=== PATIENT | female | born 1950 | race Caucasian/White ===

== ENCOUNTER → 2016-08-17 | Day surgery (SDC) | payer BC, OTHER ==
[~2016-08-17] MED LIST: Apraclonidine 0.5% Ophth Soln 5 ML Bot EYEBOTH SCH; Phenylephrine 2.5% Ophth Soln 2 ML Bot EYEBOTH SCH
== END ==
LOC: JD.SDS 11:26
PROVIDERS: ATTEND Ophthalmology
DX: H26.493 Other secondary cataract, bilateral (principal); I10 Essential (primary) hypertension; Z88.2 Allergy status to sulfonamides; Z88.8 Allergy status to other drugs, medicaments and biological substances; Z90.710 Acquired absence of both cervix and uterus

== ENCOUNTER 2019-06-25 13:15 | Inpatient (IN) | payer OTHER, MEDICARE ==
[2019-08-06] MEDS ORDERED: Lidocaine 1%/Sod Bicarbonate in NS 8.4% 1 ML Syringe IDERM PRN (00:01)
[2019-08-06] MEDS ORDERED: Lactated Ringers 1,000 ML IV SCH (00:01)
[2019-08-06] MEDS ORDERED: Sodium Chloride 0.9% 10 ML Syringe FLUSH PRN (00:01)
[2019-08-06] MEDS ORDERED: oxyCODONE ER 10 MG TAB.ER PO SCH ×2 (06:00→10:30)
[2019-08-06] MEDS ORDERED: Ondansetron 4 MG/2 ML SDV IVPUSH PRN (06:47)
[2019-08-06] MEDS ORDERED: Sennosides 8.6 MG Tab PO PRN (06:47)
[2019-08-06] MEDS ORDERED: Bisacodyl 5 MG Tab PO PRN (06:47)
[2019-08-06] MEDS ORDERED: Morphine 2 MG/ML Syringe IVPUSH PRN (06:47)
[2019-08-06] MEDS ORDERED: Naloxone 0.4 MG/ML SDV IVPUSH PRN (06:47)
[2019-08-06] MEDS ORDERED: fentaNYL 100 MCG/2 ML SDV ONE (09:48)
[2019-08-06] MEDS ORDERED: Lidocaine 1% 4 ML ONE (09:49)
[2019-08-06] MEDS ORDERED: Propofol 200 MG/20 ML SDV ONE (09:49)
[2019-08-06] MEDS ORDERED: Midazolam 1 MG/ML 2 ML SDV ONE (09:50)
[2019-08-06] MEDS ORDERED: ceFAZolin 1 GM Vial ONE ×2 (09:51→10:21)
[2019-08-06] MEDS ORDERED: Morphine 8 MG, EPINEPHrine 0.3 MG, Cefuroxime 750 MG, Ketorolac 30 MG, Sodium Chloride ... ONE ×5 (10:00)
[2019-08-06] MEDS ORDERED: Acetaminophen 325 MG Tab PO SCH ×2 (10:00→10:30)
[2019-08-06] MEDS ORDERED: Pregabalin 25 MG Cap PO SCH ×2 (10:00→10:30)
[2019-08-06] MEDS ORDERED: Bupivacaine 0.25% 10 ML SDV ONE (10:22)
[2019-08-06] MEDS ORDERED: Iodine/Sodium Iodide 2% Tincture 30 ML Bottle ONE (10:22)
[2019-08-06] MEDS ORDERED: Vancomycin 1 GM SDV ONE (10:22)
--- NOTE | 2019-08-06 10:35 | PCM.PREANE ---
Preanesthetic Assessment - Anesthesia/Transfusion/Family Hx Anesthesia History: Prior Anesthesia Without Reaction Transfusion History: No Prior Transfusion(s) - Review of Systems General: No Symptoms Pulmonary: No Symptoms Cardiovascular: No Symptoms Gastrointestinal: No Symptoms Neurological: No Symptoms Other: Reports: None - Physical Assessment NPO Status Date: 08/05/19 NPO Status Time: 20:00 ASA Class: 2 Mental Status: Alert & Oriented x3 Airway Class: Mallampati = 4 (difficult airway) Dentition: Reports: Normal Dentition Thyro-Mental Finger Breadths: 3 Mouth Opening Finger Breadths: 3 ROM/Head Extension: Limited/Partial Lungs: Clear to Auscultation, Normal Respiratory Effort Cardiovascular: Regular Rate, Regular Rhythm - Lab Values: Laboratory Last Values MRSA (PCR) Positive H 07/20/19 11:43 - Allergies Allergies/Adverse Reactions: Allergies Allergy/AdvReac Type Severity Reaction Status Date / Time cefdinir Allergy Nausea and Verified 08/03/19 13:47 Vomiting methylprednisolone Allergy Diaphoresis Verified 08/03/19 13:47 Nbsutll-Den-Kxg Reductase Allergy Body Aches Verified 08/03/19 13:47 Inhibitor Sulfa (Sulfonamide Allergy Nausea and Verified 08/03/19 13:47 Antibiotics) Vomiting - Blood Blood Available: Yes Product(s) Available: PRBC - Anesthesia Plan Beta Yong: Propranolol Med Last Dose Date: 08/05/19 Med Last Dose Time: 23:00 - Acknowledgements Anesthesia Type Planned: General Anesthesia, Spinal Pt an Appropriate Candidate for the Planned Anesthesia: Yes Alternatives and Risks of Anesthesia Discussed w Pt/Guardian: Yes Pt/Guardian Understands and Agrees with Anesthesia Plan: Yes PreAnesthesia Questionnaire HEENT History: Reports: Allergic Rhinitis, Other (See Below) Other HEENT History: temporomadibular joint disorder Cardiovascular History: Reports: High Cholesterol, Hypertension Respiratory History: Reports: Sleep Apnea, Other (See Below) Other Respiratory History: acute URI, sleep apnea with no machine Gastrointestinal History: Reports: GERD Genitourinary History: Reports: Other (See Below) Other Genitourinary History: decreased GFR, kidney disease Musculoskeletal History: Reports: Other (See Below) Other Musculoskeletal History: arthopathy, aseptic necrosis of femur, costochondritis Neurological History: Reports: Headaches, Chronic, Other (See Below) Other Neuro History: cervical radiculopathy, intracranial vascular stenosis Psychiatric History: Reports: Depression Endocrine/Metabolic History: Reports: Vitamin D Deficiency Hematologic History: Reports: Anemia Dermatologic History: Reports: Other (See Below) Other Dermatologic History: rash, basal cell carcinoma - Past Surgical History Head Surgeries/Procedures: Reports: None HEENT Surgical History: Reports: Cataract Surgery Cardiovascular Surgical History: Reports: None Respiratory Surgical History: Reports: None GI Surgical History: Reports: None Female Surgical History: Reports: Hysterectomy Male Surgical History: Reports: None Endocrine Surgical History: Reports: None Musculoskeletal Surgical History: Reports: Hip Replacement Oncologic Surgical History: Reports: None - SUBSTANCE USE Smoking Status *Q: Former Smoker Recreational Drug Use History: No - HOME MEDS Home Medications: Home Meds Folic Acid 1 mg PO DAILY 11/14/13 [History] Omeprazole 20 mg PO DAILY 11/14/13 [History] Propranolol [Inderal LA] 120 mg PO DAILY 11/14/13 [History] Ezetimibe [Zetia] 10 mg PO DAILY 08/16/16 [History] Fexofenadine HCl 180 mg PO DAILY 08/16/16 [History] Losartan [Cozaar] 50 mg PO DAILY 08/16/16 [History] Acetaminophen [Tylenol Extra Strength] 500 mg PO Q4H PRN 08/03/19 [History] Aspirin 81 mg PO DAILY 08/03/19 [History] DULoxetine [Cymbalta] 60 mg PO DAILY 08/03/19 [History] Levocetirizine Dihydrochloride [Xyzal] 5 mg PO DAILY 08/03/19 [History] amLODIPine Besylate [Norvasc] 5 mg PO DAILY 08/03/19 [History] gemfibroziL [Lopid] 600 mg PO DAILY 08/03/19 [History] - CURRENT (IN HOUSE) MEDS Current Meds: Current Medications Acetaminophen (Tylenol) 975 mg PO ONETIME [facility] Stop: 08/06/19 16:00 Aspirin (Ecotrin) 325 mg PO BID [facility] Bisacodyl (Dulcolax) 5 mg PO DAILY PRN PRN Reason: Constipation Docusate Sodium (Colace) 100 mg PO BID [facility] Famotidine (Pepcid) 20 mg PO Q12H [facility] Lactated Ringer's (Ringers, Lactated) 1,000 mls @ 125 mls/hr IV ASDIRECTED [facility] Stop: 08/06/19 23:00 Cefazolin Sodium/Dextrose 2 gm (/ Premix) 50 mls @ 100 mls/hr IV Q8H [facility] Stop: 08/06/19 23:29 Lidocaine/Sodium Bicarbonate (Buffered Lidocaine 1% In Ns 8.4%) 0.25 ml IDERM ONETIME PRN PRN Reason: Prior to IV Start Stop: 08/06/19 18:00 Morphine Sulfate (Morphine) 2 mg IVPUSH Q2H PRN PRN Reason: Breakthrough Pain Naloxone HCl (Narcan) 0.1 mg IVPUSH Q5M PRN PRN Reason: Oversedation Ondansetron HCl (Zofran) 4 mg IVPUSH Q6H PRN PRN Reason: Nausea/Vomiting Oxycodone HCl (Oxycontin) 10 mg PO ONETIME [facility] Stop: 08/06/19 16:00 Oxycodone/Acetaminophen (Percocet 325-5 Mg) 1 - 2 tab PO Q4H PRN PRN Reason: Pain Pregabalin (Lyrica) 50 mg PO ONETIME [facility] Stop: 08/06/19 16:00 Senna (Senna) 8.6 mg PO BID PRN PRN Reason: Constipation Sodium Chloride (Saline Flush) 10 ml FLUSH ASDIRECTED PRN PRN Reason: Keep Vein Open Stop: 08/06/19 18:00 Vancomycin HCl (Pharmacy To Dose - Vancomycin) 1 dose .XX ASDIRECTED [facility] Discontinued Medications Cefazolin Sodium (Ancef) Confirm Administered Dose 2 gm .ROUTE .STK-MED ONE Stop: 08/06/19 09:52 Morphine Sulfate 8 mg/Epinephrine HCl 0.3 mg/Cefuroxime Sodium 750 mg/Ketorolac Tromethamine 30 mg/Sodium Chloride 7.9 ml 0 mg .XX ONETIME ONE Stop: 08/06/19 10:01 Fentanyl (Sublimaze) Confirm Administered Dose 100 mcg .ROUTE .STK-MED ONE Stop: 08/06/19 09:49 Lidocaine HCl (Xylocaine-Mpf 1%) Confirm Administered Dose 4 mls @ as directed .ROUTE .STK-MED ONE Stop: 08/06/19 09:50 Midazolam HCl (Versed 1 Mg/Ml) Confirm Administered Dose 2 mg .ROUTE .STK-MED ONE Stop: 08/06/19 09:51 Propofol (Diprivan 20 Ml) Confirm Administered Dose 200 mg .ROUTE .STK-MED ONE Stop: 08/06/19 09:50
[2019-08-06] MEDS ORDERED: Vancomycin 1 GM, Vancomycin 500 MG in Sodium Chloride 0.9% 500 ML IV ONE (11:00)
[2019-08-06] MEDS ORDERED: cloNIDine 1,000 MCG/10 ML SDV ONE (11:31)
--- NOTE | 2019-08-06 12:15 | PCM.CONS ---
H&P History of Present Illness - General Date of Service: 08/06/19 Admit Problem/Dx: Admission Diagnosis/Problem Admission Diagnosis/Problem Osteoarthritis of hip Source of Information: Patient, Provider, RN, RN Notes Reviewed History Limitations: Reports: No Limitations - History of Present Illness Initial Comments - Free Text/Narative: Zamzam Bryant is a 69 yo female patient of Dr. Garza who is post-operative day 0 of left RAGHAVENDRA. Hospital medicine was consulted for post-operative medical care of the following listed medical conditions. At this time she is resting comfortably in bed. Pain is controlled. She denies any chest pain, shortness of breath, palpitations, nausea, or vomiting. She carries a history of: MRSA, RA, Gout, Insomnia, GERD, Depression, Osteoporosis, TMJ, HTN, Anemia, Headache, Intracranial vascular stenosis, Vitamin D deficiency, Rash, HLD, Untreated Sleep Apnea, CKD, Cervical radiculopathy, Basal cell carcinoma. She is a former smoker. She is a full code. Her primary care provider is Dr. Dias. Left Hip Pain Score (Numeric/FACES): 0 - Related Data Allergies/Adverse Reactions: Allergies Allergy/AdvReac Type Severity Reaction Status Date / Time cefdinir Allergy Nausea and Verified 08/03/19 13:47 Vomiting methylprednisolone Allergy Diaphoresis Verified 08/03/19 13:47 Bkrjtvr-Fhr-Glr Reductase Allergy Body Aches Verified 08/03/19 13:47 Inhibitor Sulfa (Sulfonamide Allergy Nausea and Verified 08/03/19 13:47 Antibiotics) Vomiting Home Medications: Home Meds Folic Acid 1 mg PO DAILY 11/14/13 [History] Omeprazole 20 mg PO DAILY 11/14/13 [History] Propranolol [Inderal LA] 120 mg PO DAILY 11/14/13 [History] Ezetimibe [Zetia] 10 mg PO DAILY 08/16/16 [History] Fexofenadine HCl 180 mg PO DAILY 08/16/16 [History] Losartan [Cozaar] 50 mg PO DAILY 08/16/16 [History] Acetaminophen [Tylenol Extra Strength] 500 mg PO Q4H PRN 08/03/19 [History] Aspirin 81 mg PO DAILY 08/03/19 [History] DULoxetine [Cymbalta] 60 mg PO DAILY 08/03/19 [History] Levocetirizine Dihydrochloride [Xyzal] 5 mg PO DAILY 08/03/19 [History] amLODIPine Besylate [Norvasc] 5 mg PO DAILY 08/03/19 [History] gemfibroziL [Lopid] 600 mg PO DAILY 08/03/19 [History] Past Medical History HEENT History: Reports: Allergic Rhinitis, Other (See Below) Other HEENT History: temporomadibular joint disorder Cardiovascular History: Reports: High Cholesterol, Hypertension Respiratory History: Reports: Sleep Apnea, Other (See Below) Other Respiratory History: acute URI, sleep apnea with no machine Gastrointestinal History: Reports: GERD Genitourinary History: Reports: Other (See Below) Other Genitourinary History: decreased GFR, kidney disease SECURITY MANAGEMENT SPECIALIST History: Reports: None Musculoskeletal History: Reports: Other (See Below) Other Musculoskeletal History: arthopathy, aseptic necrosis of femur, costochondritis Neurological History: Reports: Headaches, Chronic, Other (See Below) Other Neuro History: cervical radiculopathy, intracranial vascular stenosis Psychiatric History: Reports: Depression Endocrine/Metabolic History: Reports: Vitamin D Deficiency Hematologic History: Reports: Anemia Immunologic History: Reports: None Oncologic (Cancer) History: Reports: None Dermatologic History: Reports: Other (See Below) Other Dermatologic History: rash, basal cell carcinoma - Infectious Disease History Infectious Disease History: Reports: MRSA Other Infectious Disease History: MRSA + nares (06/12/19) - Past Surgical History Head Surgeries/Procedures: Reports: None HEENT Surgical History: Reports: Cataract Surgery Cardiovascular Surgical History: Reports: None Respiratory Surgical History: Reports: None GI Surgical History: Reports: None Female Surgical History: Reports: Hysterectomy Male Surgical History: Reports: None Endocrine Surgical History: Reports: None Musculoskeletal Surgical History: Reports: Hip Replacement Oncologic Surgical History: Reports: None Social & Family History - Tobacco Use Smoking Status *Q: Former Smoker Used Tobacco, but Quit: Yes Month/Year Tobacco Last Used: 1998 - Caffeine Use Caffeine Use: Reports: Soda - Recreational Drug Use Recreational Drug Use: No H&P Review of Systems - Review of Systems: Review Of Systems: See Below General: Reports: No Symptoms. Denies: Fever, Chills HEENT: Reports: No Symptoms. Denies: Headaches, Sore Throat Pulmonary: Reports: No Symptoms. Denies: Shortness of Breath, Wheezing, Pleuritic Chest Pain, Cough, Sputum Cardiovascular: Reports: No Symptoms. Denies: Chest Pain, Palpitations, Dyspnea on Exertion Gastrointestinal: Reports: No Symptoms. Denies: Abdominal Pain, Constipation, Nausea, Vomiting Genitourinary: Reports: No Symptoms. Denies: Pain Musculoskeletal: Reports: Leg Pain Skin: Reports: No Symptoms. Denies: Cyanosis Psychiatric: Reports: No Symptoms. Denies: Confusion Neurological: Reports: Difficulty Walking, Gait Disturbance Hematologic/Lymphatic: Reports: No Symptoms Immunologic: Reports: No Symptoms Exam - Exam Exam: See Below - Vital Signs Vital Signs: Last Vital Signs Temp 97.6 F 08/06/19 10:20 Pulse 70 08/06/19 10:20 Resp 16 08/06/19 10:20 BP 138/76 08/06/19 10:20 Pulse Ox 94 L 08/06/19 10:20 Weight: 199 lb - Exam Quality Assessment: DVT Prophylaxis General: Alert, Oriented, Cooperative. No: Mild Distress HEENT: Conjunctiva Clear, EACs Clear, Mucosa Moist & [place], Nares Patent, Posterior Pharynx Clear, PERRLA Neck: Supple, Trachea Midline Lungs: Clear to Auscultation, Normal Respiratory Effort Cardiovascular: Regular Rate, Regular Rhythm GI/Abdominal Exam: Normal Bowel Sounds, Soft, Non-Tender, No Distention (Female) Exam: Deferred Rectal (Female) Exam: Deferred Back Exam: Normal Inspection, Full Range of Motion Extremities: Normal Capillary Refill, Leg Pain, Limited Range of Motion, Other ( Bandage in place on right leg. Bandage is dry and intact. Cooling pack in place. ) Peripheral Pulses: 2+: Radial (L), Radial (R), Dorsalis Pedis (L), Dorsalis Pedis (R) Skin: Dry, Intact Neurological: Cranial Nerves Intact (Grossly ) Neuro Extensive - Mental Status: Alert, Oriented x3, Normal Mood/Affect Sepsis Event Note - Evaluation Sepsis Screening Result: No Definite Risk - Focused Exam Vital Signs: Vital Signs Temp Pulse Resp BP Pulse Ox 08/06/19 10:20 97.6 F 70 16 138/76 94 L Date Exam was Performed: 08/06/19 Time Exam was Performed: 15:00 Consult PN Assessment/Plan POD#: 0 Procedures: Procedures AFTER CATARACT LASER SURGERY (08/17/16) ASSAY OF CREATININE (11/22/13) ASSAY OF MAGNESIUM (11/14/13) BLOOD CULTURE FOR BACTERIA (11/14/13) C-REACTIVE PROTEIN (11/14/13) CHEST X-RAY 2VW FRONTAL&LATL (11/14/13) COMPLETE CBC W/AUTO DIFF WBC (11/14/13) COMPREHEN METABOLIC PANEL (11/14/13) CT HEAD/BRAIN W/O DYE (11/14/13) CULTURE SCREEN ONLY (04/09/18) EMERGENCY DEPT VISIT (09/10/14) GAIT TRAINING THERAPY (11/14/13) HEPATITIS B SURFACE AG IA (09/10/14) HEPATITIS C AB TEST (09/10/14) MEASURE BLOOD OXYGEN LEVEL (11/14/13) MEASURE BLOOD OXYGEN LEVEL (11/14/13) MR ANGIOGRAPHY HEAD W/O DYE (11/14/13) MRI BRAIN STEM W/O & W/DYE (11/14/13) MRI NECK SPINE W/O DYE (11/22/13) PARATHYRD PLANAR W/SPECT&CT (11/18/14) POLYSOM 6/> YRS 4/> BEREKET (12/14/16) PT EVALUATION (11/14/13) ROUTINE VENIPUNCTURE (11/22/13) URINALYSIS AUTO W/SCOPE (11/14/13) URINE BACTERIA CULTURE (11/14/13) WEST NILE VIRUS AB IGM (11/14/13) (1) S/P total hip arthroplasty SNOMED Code(s): 323234773084, 467436719759 Code(s): Z96.649 - PRESENCE OF UNSPECIFIED ARTIFICIAL HIP JOINT Priority: High Current Visit: Yes Qualifiers: Laterality: left Qualified Code(s): Z96.642 - Presence of left artificial hip joint (2) Osteoarthritis SNOMED Code(s): 801436681 Code(s): M19.90 - UNSPECIFIED OSTEOARTHRITIS, UNSPECIFIED SITE Priority: High Current Visit: Yes Qualifiers: Osteoarthritis location: hip Osteoarthritis type: primary Laterality: left Qualified Code(s): M16.12 - Unilateral primary osteoarthritis, left hip (3) Positive result for methicillin resistant Staphylococcus aureus (MRSA) screening SNOMED Code(s): 946280624 Code(s): Z22.322 - CARRIER OR SUSPECTED CARRIER OF METHICILLIN RESIS STAPH Priority: Medium Current Visit: Yes (4) Former smoker SNOMED Code(s): 8495256 Code(s): Z87.891 - PERSONAL HISTORY OF NICOTINE DEPENDENCE Priority: Low Current Visit: No (5) Rheumatoid arthritis SNOMED Code(s): 17913899 Code(s): M06.9 - RHEUMATOID ARTHRITIS, UNSPECIFIED Priority: Low Current Visit: No Qualifiers: Rheumatoid arthritis location: unspecified site Rheumatoid factor presence : unspecified presence Qualified Code(s): M06.9 - Rheumatoid arthritis, unspecified (6) Gout SNOMED Code(s): 32114999 Code(s): M10.9 - GOUT, UNSPECIFIED Priority: Low Current Visit: No Qualifiers: Gout site: unspecified site Gout etiology: unspecified cause Chronicity: unspecified Qualified Code(s): M10.9 - Gout, unspecified (7) Insomnia SNOMED Code(s): 878381684 Code(s): G47.00 - INSOMNIA, UNSPECIFIED Priority: Low Current Visit: No Qualifiers: Insomnia type: unspecified Qualified Code(s): G47.00 - Insomnia, unspecified (8) GERD (gastroesophageal reflux disease) SNOMED Code(s): 585915150 Code(s): K21.9 - GASTRO-ESOPHAGEAL REFLUX DISEASE WITHOUT ESOPHAGITIS Priority: Low Current Visit: No Qualifiers: Esophagitis presence: esophagitis presence not specified Qualified Code(s) : K21.9 - Gastro-esophageal reflux disease without esophagitis (9) Depression SNOMED Code(s): 83563451 Code(s): F32.9 - MAJOR DEPRESSIVE DISORDER, SINGLE EPISODE, UNSPECIFIED Priority: Low Current Visit: No Qualifiers: Depression Type: other depression Qualified Code(s): F32.89 - Other specified depressive episodes (10) Osteoporosis SNOMED Code(s): 91679770 Code(s): M81.0 - AGE-RELATED OSTEOPOROSIS W/O CURRENT PATHOLOGICAL FRACTURE Priority: Low Current Visit: No Qualifiers: Osteoporosis type: unspecified Presence of current pathological fracture: unspecified Qualified Code(s): M81.0 - Age-related osteoporosis without current pathological fracture (11) TMJ (temporomandibular joint syndrome) SNOMED Code(s): 88838514 Code(s): M26.609 - UNSPECIFIED TMJ JOINT DISORDER, UNSPECIFIED SIDE Priority: Low Current Visit: No (12) HTN (hypertension) SNOMED Code(s): 92822403 Code(s): I10 - ESSENTIAL (PRIMARY) HYPERTENSION Priority: Medium Current Visit: No Qualifiers: Hypertension type: unspecified Qualified Code(s): I10 - Essential (primary ) hypertension (13) Anemia SNOMED Code(s): 917630229 Code(s): D64.9 - ANEMIA, UNSPECIFIED Priority: Low Current Visit: No Qualifiers: Anemia type: unspecified type Qualified Code(s): D64.9 - Anemia, unspecified (14) Headache SNOMED Code(s): 73032573 Code(s): R51 - HEADACHE Priority: Low Current Visit: No Qualifiers: Headache type: unspecified Headache chronicity pattern: unspecified pattern Intractability: not intractable Qualified Code(s): R51 - Headache (15) Intracranial vascular stenosis SNOMED Code(s): 71974549 Code(s): I67.9 - CEREBROVASCULAR DISEASE, UNSPECIFIED Priority: Low Current Visit: No (16) Vitamin D deficiency SNOMED Code(s): 03713083 Code(s): E55.9 - VITAMIN D DEFICIENCY, UNSPECIFIED Priority: Low Current Visit: No (17) Rash SNOMED Code(s): 610861746 Code(s): R21 - RASH AND OTHER NONSPECIFIC SKIN ERUPTION Priority: Low Current Visit: No (18) HLD (hyperlipidemia) SNOMED Code(s): 38829005 Code(s): E78.5 - HYPERLIPIDEMIA, UNSPECIFIED Priority: Low Current Visit : No Qualifiers: Hyperlipidemia type: unspecified Qualified Code(s): E78.5 - Hyperlipidemia , unspecified (19) Sleep apnea SNOMED Code(s): 55644011 Code(s): G47.30 - SLEEP APNEA, UNSPECIFIED Priority: Low Current Visit: No Qualifiers: Sleep apnea type: unspecified type Qualified Code(s): G47.30 - Sleep apnea , unspecified (20) Basal cell carcinoma (BCC) SNOMED Code(s): 544810908 Code(s): C44.91 - BASAL CELL CARCINOMA OF SKIN, UNSPECIFIED Priority: Low Current Visit: No Qualifiers: Basal cell carcinoma location: unspecified site Qualified Code(s): C44.91 - Basal cell carcinoma of skin, unspecified (21) Cervical radiculopathy SNOMED Code(s): 79347048 Code(s): M54.12 - RADICULOPATHY, CERVICAL REGION Priority: Low Current Visit: No (22) CKD (chronic kidney disease) stage 3, GFR 30-59 ml/min SNOMED Code(s): 827755453 Code(s): N18.3 - CHRONIC KIDNEY DISEASE, STAGE 3 (MODERATE) Priority: Medium Current Visit: Yes Problem List Initiated/Reviewed/Updated: Yes Plan: I/P: Acute: S/P left total hip arthroplasty - post-operative day 0 -DVT prophylaxis and pain management per primary care team -PT/OT -IS/RT -Monitor oxygen saturation -Titrate oxygen as needed -Home medications reviewed -Vital signs stable -Monitor labs -Pre-operative Hgb was 13.2 -Pre-operative GFR was 38 -Pre-operative creatinine was 1.37 -Pre-operative BUN was 27 Osteoarthritis of left hip -Pain management per primary care team Chronic: Positive MRSA Screen RA Gout Insomnia GERD Depression Osteoporosis TMJ HTN Anemia Headache Intracranial vascular stenosis Vitamin D deficiency Rash HLD Untreated Sleep Apnea CKD Cervical radiculopathy Basal cell carcinoma Plan: CM for discharge planning GI prophylaxis Home medications as indicated Other orders as listed above Routine AM labs She is a full code. Her PCP is Dr. Dias. Thank you for allowing us to participate in the care of this patient!! Requesting Provider: Dr. Garza Date Consult Requested: 08/06/19 Patient History Reviewed: Yes Admission H&P Reviewed: Yes Notified Requestor: Yes
[2019-08-06] MEDS ORDERED: Lactated Ringers 1,000 ML ONE (12:53)
--- NOTE | 2019-08-06 13:36 | PCM.POSTAN ---
POST ANESTHESIA ASSESSMENT - MENTAL STATUS Mental Status: Somnolent - VITAL SIGNS Vital Signs: Last Vital Signs Temp 98.4 F 08/06/19 13:00 Pulse 70 08/06/19 10:20 Resp 10 L 08/06/19 13:30 BP 117/69 08/06/19 13:30 Pulse Ox 96 08/06/19 13:30 - RESPIRATORY Respiratory Status: Respiratory Rate WNL, Airway Patent, O2 Saturation Stable, Supplemental Oxygen - CARDIOVASCULAR CV Status: Pulse Rate WNL, Blood Pressure Stable - GASTROINTESTINAL GI Status: No Symptoms - PAIN Pain Score: 0 (post SAB) - POST OP HYDRATION Hydration Status: Adequate & Stable
--- NOTE | 2019-08-06 13:51 | CR ---
Pelvis and left hip: AP view of the pelvis was obtained as well as crosstable lateral view of the left hip. Recently placed left hip prosthesis is seen. Components are aligned. Soft tissue air is noted around the left hip compatible with the surgical procedure. Right hip prosthesis noted which appears old. No acute underlying bony abnormality is seen. Impression: 1. Satisfactory postop radiographic appearance of recently placed left hip prosthesis. 2. Old right hip prosthesis which appears unremarkable. 3. No acute bony abnormality is identified. Diagnostic code #2 This report was dictated in [place] Standard Time
[2019-08-06] MEDS: Acetaminophen/oxyCODONE 325-5 MG Tab PO PRN ×2 (18:19→22:28)
[2019-08-06] MEDS: ceFAZolin 2 GM in Premix Bag 1 BAG IV SCH (18:20)
[2019-08-06] MEDS ORDERED: Famotidine 20 MG Tab PO SCH (21:00)
[2019-08-06] MEDS: Docusate Sodium 100 MG Cap PO SCH (21:50)
[2019-08-07] MEDS: ceFAZolin 2 GM in Premix Bag 1 BAG IV SCH ×2 (02:27→09:44)
[2019-08-07] MEDS ORDERED: Lactated Ringers 1,000 ML IV ONE (05:54)
[2019-08-07] MEDS ORDERED: Lactated Ringers 1,000 ML IV SCH (06:00)
--- NOTE | 2019-08-07 07:12 | PCM.CONSN ---
- General Info Date of Service: 08/07/19 Admission Dx/Problem (Free Text): Admission Diagnosis/Problem Admission Diagnosis/Problem Osteoarthritis of hip Functional Status: Reports: Pain Controlled, Tolerating Diet, Ambulating, Urinating, New Symptoms, Incentive Spirometry - Review of Systems General: Reports: Weakness, Fatigue, Malaise. Denies: Fever, Chills HEENT: Reports: No Symptoms. Denies: Headaches, Sore Throat Pulmonary: Reports: Shortness of Breath. Denies: Cough, Sputum, Wheezing Cardiovascular: Reports: Dyspnea on Exertion. Denies: Chest Pain, Palpitations Gastrointestinal: Reports: No Symptoms. Denies: Abdominal Pain, Constipation, Diarrhea, Nausea, Vomiting Genitourinary: Reports: No Symptoms. Denies: Pain Musculoskeletal: Reports: No Symptoms Skin: Reports: No Symptoms Neurological: Reports: Difficulty Walking, Weakness, Gait Disturbance. Denies: Confusion Psychiatric: Reports: No Symptoms - Patient Data Vitals - Most Recent: Last Vital Signs Temp 97.3 F 08/07/19 03:16 Pulse 74 08/07/19 05:37 Resp 16 08/07/19 03:16 BP 140/97 H 08/07/19 05:37 Pulse Ox 94 L 08/07/19 05:40 Orthostatic Blood Pressure [ 110/78 Sitting] Orthostatic Blood Pressure [ 122/88 Standing] Orthostatic Blood Pressure [ 103/68 Supine] Weight - Most Recent: 207 lb 9.6 oz I&O - Last 24 Hours: Intake & Output 08/06/19 08/07/19 08/07/19 22:59 06:59 14:59 Intake Total 240 1100 Output Total 0 Balance 240 1100 Lab Results Last 24 Hours: Laboratory Results - last 24 hr 08/06/19 Range/Units 10:40 Blood Type A POSITIVE Gel Antibody Screen Negative Med Orders - Current: Current Medications Amlodipine Besylate (Norvasc) 5 mg PO DAILY [facility] Aspirin (Ecotrin) 325 mg PO BID [facility] Bisacodyl (Dulcolax) 5 mg PO DAILY PRN PRN Reason: Constipation Docusate Sodium (Colace) 100 mg PO BID [facility] Last Admin: 08/06/19 21:50 Dose: 100 mg Duloxetine HCl (Cymbalta) 60 mg PO DAILY [facility] Ezetimibe (Zetia) 10 mg PO DAILY [facility] Folic Acid (Folic Acid) 1 mg PO DAILY [facility] Gemfibrozil (Lopid) 600 mg PO DAILY [facility] Cefazolin Sodium/Dextrose 2 gm (/ Premix) 50 mls @ 100 mls/hr IV Q8H [facility] Stop: 08/07/19 10:59 Last Admin: 08/07/19 02:27 Dose: 100 mls/hr Lactated Ringer's (Ringers, Lactated) 1,000 mls @ 200 mls/hr IV ASDIRECTED [facility] Stop: 08/07/19 10:59 Losartan Potassium (Cozaar) 50 mg PO DAILY [facility] Morphine Sulfate (Morphine) 2 mg IVPUSH Q2H PRN PRN Reason: Breakthrough Pain Naloxone HCl (Narcan) 0.1 mg IVPUSH Q5M PRN PRN Reason: Oversedation Ondansetron HCl (Zofran) 4 mg IVPUSH Q6H PRN PRN Reason: Nausea/Vomiting Oxycodone/Acetaminophen (Percocet 325-5 Mg) 1 - 2 tab PO Q4H PRN PRN Reason: Pain Last Admin: 08/06/19 22:28 Dose: 2 tab Pantoprazole Sodium (Protonix) 40 mg PO DAILY [facility] Fexofenadine Hcl 180 (Mg) 0 each PO DAILY [facility] Levocetirizine Dihydrochloride [ Xyzal] 5 Mg 0 each PO DAILY [facility] Propranolol HCl (Inderal La) 120 mg PO DAILY [facility] Senna (Senna) 8.6 mg PO BID PRN PRN Reason: Constipation Discontinued Medications Acetaminophen (Tylenol) 975 mg PO ONETIME [facility] Stop: 08/06/19 16:00 Acetaminophen (Tylenol) 975 mg PO ONETIME [facility] Stop: 08/06/19 14:00 Last Admin: 08/06/19 10:31 Dose: 975 mg Bupivacaine HCl (Sensorcaine-Mpf 0.25%) Confirm Administered Dose 30 ml .ROUTE .STK-MED ONE Stop: 08/06/19 10:23 Last Admin: 08/06/19 12:27 Dose: 30 ml Cefazolin Sodium (Ancef) Confirm Administered Dose 2 gm .ROUTE .STK-MED ONE Stop: 08/06/19 09:52 Last Admin: 08/06/19 12:23 Dose: 2 gm Cefazolin Sodium (Ancef) Confirm Administered Dose 2 gm .ROUTE .STK-MED ONE Stop: 08/06/19 10:22 Clonidine HCl (Duraclon) Confirm Administered Dose 1,000 mcg .ROUTE .STK-MED ONE Stop: 08/06/19 11:32 Morphine Sulfate 8 mg/Epinephrine HCl 0.3 mg/Cefuroxime Sodium 750 mg/Ketorolac Tromethamine 30 mg/Sodium Chloride 7.9 ml 0 mg .XX ONETIME ONE Stop: 08/06/19 10:01 Last Admin: 08/06/19 12:27 Dose: 788.3 mg Famotidine (Pepcid) 20 mg PO Q12H [facility] Fentanyl (Sublimaze) Confirm Administered Dose 100 mcg .ROUTE .STK-MED ONE Stop: 08/06/19 09:49 Glycopyrrolate () Confirm Administered Dose 1 mg .ROUTE .STK-MED ONE Stop: 08/06/19 12:06 Lactated Ringer's (Ringers, Lactated) 1,000 mls @ 125 mls/hr IV ASDIRECTED [facility] Stop: 08/06/19 23:00 Last Admin: 08/06/19 10:40 Dose: 125 mls/hr Lidocaine HCl (Xylocaine-Mpf 1%) Confirm Administered Dose 4 mls @ as directed .ROUTE .STK-MED ONE Stop: 08/06/19 09:50 Vancomycin HCl 1 gm/Vancomycin HCl 500 mg/ Sodium Chloride 500 mls @ 250 mls/ hr IV ONETIME [facility] Stop: 08/06/19 12:59 Last Admin: 08/06/19 11:05 Dose: 250 mls/hr Lactated Ringer's (Ringers, Lactated) Confirm Administered Dose 1,000 mls @ as directed .ROUTE .STK-MED ONE Stop: 08/06/19 12:54 Lactated Ringer's (Ringers, Lactated) 1,000 mls @ 999 mls/hr IV .BOLUS ONE Stop: 08/07/19 06:54 Last Admin: 08/07/19 06:02 Dose: 999 mls/hr Iodine (Iodine 2% Mild Tincture) Confirm Administered Dose 30 ml .ROUTE .STK- MED ONE Stop: 08/06/19 10:23 Last Admin: 08/06/19 12:21 Dose: 18 ml Lidocaine HCl (Xylocaine-Mpf 1%) Confirm Administered Dose 5 ml .ROUTE .STK-MED ONE Stop: 08/06/19 11:32 Lidocaine/Sodium Bicarbonate (Buffered Lidocaine 1% In Ns 8.4%) 0.25 ml IDERM ONETIME PRN PRN Reason: Prior to IV Start Stop: 08/06/19 18:00 Last Admin: 08/06/19 10:39 Dose: 0.25 ml Midazolam HCl (Versed 1 Mg/Ml) Confirm Administered Dose 2 mg .ROUTE .STK-MED ONE Stop: 08/06/19 09:51 Miscellaneous Medication (Phenylephrine 1 Mg/10 Ml-Ns) Confirm Administered Dose 1 mg IV .STK-MED ONE Stop: 08/06/19 12:28 Miscellaneous Medication (Phenylephrine 1 Mg/10 Ml-Ns) Confirm Administered Dose 1 mg IV .STK-MED ONE Stop: 08/06/19 12:54 Oxycodone HCl (Oxycontin) 10 mg PO ONETIME [facility] Stop: 08/06/19 16:00 Oxycodone HCl (Oxycontin) 10 mg PO ONETIME [facility] Stop: 08/06/19 14:00 Last Admin: 08/06/19 10:31 Dose: 10 mg Pregabalin (Lyrica) 50 mg PO ONETIME [facility] Stop: 08/06/19 16:00 Pregabalin (Lyrica) 50 mg PO ONETIME [facility] Stop: 08/06/19 14:00 Last Admin: 08/06/19 10:31 Dose: 50 mg Propofol (Diprivan 20 Ml) Confirm Administered Dose 200 mg .ROUTE .STK-MED ONE Stop: 08/06/19 09:50 Sodium Chloride (Saline Flush) 10 ml FLUSH ASDIRECTED PRN PRN Reason: Keep Vein Open Stop: 08/06/19 18:00 Tranexamic Acid (Cyklokapron) Confirm Administered Dose 1,000 mg .ROUTE .STK- MED ONE Stop: 08/06/19 10:22 Last Admin: 08/06/19 12:28 Dose: 1,000 mg Vancomycin HCl (Vancomycin) Confirm Administered Dose 1 gm .ROUTE .STK-MED ONE Stop: 08/06/19 10:23 Last Admin: 08/06/19 12:28 Dose: 1 gm - Exam Quality Assessment: Supplemental Oxygen (2L) General: Oriented, Cooperative, No Acute Distress, Sedated (mildly - very sleepy ) HEENT: Pupils Equal, Pupils Reactive, Mucous Membr. Moist/[place] Neck: Supple, Trachea Midline Lungs: Clear to Auscultation, Normal Respiratory Effort Cardiovascular: Regular Rate, Regular Rhythm GI/Abdominal Exam: Normal Bowel Sounds, Soft, Non-Tender, No Distention (Female) Exam: Deferred Extremities: Normal Capillary Refill, Leg Pain, Limited Range of Motion, Other ( Bandage in place on left leg. Cooling pack in place. ) Peripheral Pulses: 2+: Radial (L), Radial (R), Dorsalis Pedis (L), Dorsalis Pedis (R) Skin: Warm, Dry, Intact Wound/Incisions: Dressing Dry and Intact Sepsis Event Note - Evaluation Sepsis Screening Result: No Definite Risk - Focused Exam Vital Signs: Vital Signs Temp Pulse Resp BP Pulse Ox Pulse Ox 08/07/19 05:40 94 L 08/07/19 05:37 74 140/97 H 100 08/07/19 05:35 100 08/07/19 05:32 98 08/07/19 03:16 97.3 F 60 16 118/53 L 96 08/07/19 00:03 97.2 F 56 L 16 94/49 L 93 L 08/06/19 21:06 97.3 F 58 L 16 97/66 94 L Date Exam was Performed: 08/07/19 Time Exam was Performed: 16:11 Consult PN Assessment/Plan POD#: 1 Procedures: Procedures AFTER CATARACT LASER SURGERY (08/17/16) ASSAY OF CREATININE (11/22/13) ASSAY OF MAGNESIUM (11/14/13) BLOOD CULTURE FOR BACTERIA (11/14/13) C-REACTIVE PROTEIN (11/14/13) CHEST X-RAY 2VW FRONTAL&LATL (11/14/13) COMPLETE CBC W/AUTO DIFF WBC (11/14/13) COMPREHEN METABOLIC PANEL (11/14/13) CT HEAD/BRAIN W/O DYE (11/14/13) CULTURE SCREEN ONLY (04/09/18) EMERGENCY DEPT VISIT (09/10/14) GAIT TRAINING THERAPY (11/14/13) HEPATITIS B SURFACE AG IA (09/10/14) HEPATITIS C AB TEST (09/10/14) MEASURE BLOOD OXYGEN LEVEL (11/14/13) MEASURE BLOOD OXYGEN LEVEL (11/14/13) MR ANGIOGRAPHY HEAD W/O DYE (11/14/13) MRI BRAIN STEM W/O & W/DYE (11/14/13) MRI NECK SPINE W/O DYE (11/22/13) PARATHYRD PLANAR W/SPECT&CT (11/18/14) POLYSOM 6/> YRS 4/> BEREKET (12/14/16) PT EVALUATION (11/14/13) ROUTINE VENIPUNCTURE (11/22/13) URINALYSIS AUTO W/SCOPE (11/14/13) URINE BACTERIA CULTURE (11/14/13) WEST NILE VIRUS AB IGM (11/14/13) (1) S/P total hip arthroplasty SNOMED Code(s): 797577920980, 117518221235 Code(s): Z96.649 - PRESENCE OF UNSPECIFIED ARTIFICIAL HIP JOINT Priority: High Current Visit: Yes Qualifiers: Laterality: left Qualified Code(s): Z96.642 - Presence of left artificial hip joint (2) Osteoarthritis SNOMED Code(s): 467283394 Code(s): M19.90 - UNSPECIFIED OSTEOARTHRITIS, UNSPECIFIED SITE Priority: High Current Visit: Yes Qualifiers: Osteoarthritis location: hip Osteoarthritis type: primary Laterality: left Qualified Code(s): M16.12 - Unilateral primary osteoarthritis, left hip (3) Positive result for methicillin resistant Staphylococcus aureus (MRSA) screening SNOMED Code(s): 239596072 Code(s): Z22.322 - CARRIER OR SUSPECTED CARRIER OF METHICILLIN RESIS STAPH Priority: Medium Current Visit: Yes (4) Former smoker SNOMED Code(s): 1451899 Code(s): Z87.891 - PERSONAL HISTORY OF NICOTINE DEPENDENCE Priority: Low Current Visit: No (5) Rheumatoid arthritis SNOMED Code(s): 16641598 Code(s): M06.9 - RHEUMATOID ARTHRITIS, UNSPECIFIED Priority: Low Current Visit: No Qualifiers: Rheumatoid arthritis location: unspecified site Rheumatoid factor presence : unspecified presence Qualified Code(s): M06.9 - Rheumatoid arthritis, unspecified (6) Gout SNOMED Code(s): 33688990 Code(s): M10.9 - GOUT, UNSPECIFIED Priority: Low Current Visit: No Qualifiers: Gout site: unspecified site Gout etiology: unspecified cause Chronicity: unspecified Qualified Code(s): M10.9 - Gout, unspecified (7) Insomnia SNOMED Code(s): 914446063 Code(s): G47.00 - INSOMNIA, UNSPECIFIED Priority: Low Current Visit: No Qualifiers: Insomnia type: unspecified Qualified Code(s): G47.00 - Insomnia, unspecified (8) GERD (gastroesophageal reflux disease) SNOMED Code(s): 735320165 Code(s): K21.9 - GASTRO-ESOPHAGEAL REFLUX DISEASE WITHOUT ESOPHAGITIS Priority: Low Current Visit: No Qualifiers: Esophagitis presence: esophagitis presence not specified Qualified Code(s) : K21.9 - Gastro-esophageal reflux disease without esophagitis (9) Depression SNOMED Code(s): 12465771 Code(s): F32.9 - MAJOR DEPRESSIVE DISORDER, SINGLE EPISODE, UNSPECIFIED Priority: Low Current Visit: No Qualifiers: Depression Type: other depression Qualified Code(s): F32.89 - Other specified depressive episodes (10) Osteoporosis SNOMED Code(s): 82229504 Code(s): M81.0 - AGE-RELATED OSTEOPOROSIS W/O CURRENT PATHOLOGICAL FRACTURE Priority: Low Current Visit: No Qualifiers: Osteoporosis type: unspecified Presence of current pathological fracture: unspecified Qualified Code(s): M81.0 - Age-related osteoporosis without current pathological fracture (11) TMJ (temporomandibular joint syndrome) SNOMED Code(s): 65549906 Code(s): M26.609 - UNSPECIFIED TMJ JOINT DISORDER, UNSPECIFIED SIDE Priority: Low Current Visit: No (12) HTN (hypertension) SNOMED Code(s): 73541598 Code(s): I10 - ESSENTIAL (PRIMARY) HYPERTENSION Priority: Medium Current Visit: No Qualifiers: Hypertension type: unspecified Qualified Code(s): I10 - Essential (primary ) hypertension (13) Anemia SNOMED Code(s): 706635860 Code(s): D64.9 - ANEMIA, UNSPECIFIED Priority: Low Current Visit: No Qualifiers: Anemia type: unspecified type Qualified Code(s): D64.9 - Anemia, unspecified (14) Headache SNOMED Code(s): 25714198 Code(s): R51 - HEADACHE Priority: Low Current Visit: No Qualifiers: Headache type: unspecified Headache chronicity pattern: unspecified pattern Intractability: not intractable Qualified Code(s): R51 - Headache (15) Intracranial vascular stenosis SNOMED Code(s): 83232682 Code(s): I67.9 - CEREBROVASCULAR DISEASE, UNSPECIFIED Priority: Low Current Visit: No (16) Vitamin D deficiency SNOMED Code(s): 80301291 Code(s): E55.9 - VITAMIN D DEFICIENCY, UNSPECIFIED Priority: Low Current Visit: No (17) Rash SNOMED Code(s): 120545270 Code(s): R21 - RASH AND OTHER NONSPECIFIC SKIN ERUPTION Priority: Low Current Visit: No (18) HLD (hyperlipidemia) SNOMED Code(s): 42251567 Code(s): E78.5 - HYPERLIPIDEMIA, UNSPECIFIED Priority: Low Current Visit : No Qualifiers: Hyperlipidemia type: unspecified Qualified Code(s): E78.5 - Hyperlipidemia , unspecified (19) Sleep apnea SNOMED Code(s): 57766346 Code(s): G47.30 - SLEEP APNEA, UNSPECIFIED Priority: Low Current Visit: No Qualifiers: Sleep apnea type: unspecified type Qualified Code(s): G47.30 - Sleep apnea , unspecified (20) Basal cell carcinoma (BCC) SNOMED Code(s): 634582499 Code(s): C44.91 - BASAL CELL CARCINOMA OF SKIN, UNSPECIFIED Priority: Low Current Visit: No Qualifiers: Basal cell carcinoma location: unspecified site Qualified Code(s): C44.91 - Basal cell carcinoma of skin, unspecified (21) Cervical radiculopathy SNOMED Code(s): 38329225 Code(s): M54.12 - RADICULOPATHY, CERVICAL REGION Priority: Low Current Visit: No (22) CKD (chronic kidney disease) stage 3, GFR 30-59 ml/min SNOMED Code(s): 508408036 Code(s): N18.3 - CHRONIC KIDNEY DISEASE, STAGE 3 (MODERATE) Priority: Medium Current Visit: Yes (23) Postoperative urinary retention SNOMED Code(s): 244759457 Code(s): N99.89 - OTH POSTPROCEDURAL COMPLICATIONS AND DISORDERS OF SYS; R33.8 - OTHER RETENTION OF URINE Priority: High Current Visit: Yes (24) Altered mental state SNOMED Code(s): 169929721 Code(s): R41.82 - ALTERED MENTAL STATUS, UNSPECIFIED Priority: High Current Visit: Yes Qualifiers: Altered mental status type: unspecified Qualified Code(s): R41.82 - Altered mental status, unspecified Problem List Initiated/Reviewed/Updated: Yes Plan: I/P: Acute: S/P left total hip arthroplasty - post-operative day 1 -DVT prophylaxis and pain management per primary care team -PT/OT -IS/RT -Monitor oxygen saturation -Titrate oxygen as needed -Home medications reviewed -Vital signs stable -Monitor labs -Pre-operative Hgb was 13.2; Now 10.7 -Pre-operative GFR was 38; Now 22 -Pre-operative creatinine was 1.37; Now 2.2 -Pre-operative BUN was 27; Now 28 Osteoarthritis of left hip -Pain management per primary care team Acute weakness -2/2 anesthesia -PT/OT -Caution with pain medications NOREEN -Kidney function labs as above -Started on IV fluids last night -Minimal urine output - monitor Post-operative urinary retention -IV fluids given -Straight catheter per protocol -Monitor Altered Mental Status -Very sleepy but A&Ox3 -Likely 2/2 anesthesia -ABG ordered Chronic: Positive MRSA Screen RA Gout Insomnia GERD Depression Osteoporosis TMJ HTN Anemia Headache Intracranial vascular stenosis Vitamin D deficiency Rash HLD Untreated Sleep Apnea CKD Cervical radiculopathy Basal cell carcinoma Plan: CM for discharge planning GI prophylaxis Home medications as indicated Other orders as listed above Routine AM labs She is a full code. Her PCP is Dr. Dias. From a hospitalist standpoint Zamzam is doing ok. She has been very sleepy at times and was sedated most of the night last night. Because of this she had minimal PO input and subsequently minimal urine output. She was given an IV fluid bolus and maintenance fluids last night and today. Labs showed a decrease in kidney function. Orthostatics were obtained last night. Her alertness continues to wax and wane. She has been working with PT/OT a bit. She remains on O2, likely 2/2 sedation. ABG ordered. Her vital signs and other labs have remained stable. We will hold her today/tonight and reassess tomorrow. Thank you for allowing us to participate in the care of this patient!!
--- NOTE | 2019-08-07 08:17 | PCM48HPAN ---
Post Anesthesia Note - EVALUATION WITHIN 48HRS OF ANESTHETIC Vital Signs in Normal Range: Yes Patient Participated in Evaluation: Yes Respiratory Function Stable: Yes (still on supplementary O2 and pulse oxymetry ) Airway Patent: Yes Cardiovascular Function Stable: Yes Hydration Status Stable: Yes Pain Control Satisfactory: Yes Nausea and Vomiting Control Satisfactory: Yes Mental Status Recovered: Yes (patient is easily arousable but overall drowsy) Vital Signs: Last Vital Signs Temp 97.3 F 08/07/19 03:16 Pulse 74 08/07/19 05:37 Resp 16 08/07/19 03:16 BP 140/97 H 08/07/19 05:37 Pulse Ox 94 L 08/07/19 05:40 Orthostatic Blood Pressure [ 110/78 Sitting] Orthostatic Blood Pressure [ 122/88 Standing] Orthostatic Blood Pressure [ 103/68 Supine]
--- NOTE | 2019-08-07 08:52 | PCM.SURGPN ---
- General Info Date of Service: 08/07/19 POD#: 1 Functional Status: Reports: Other (The pt has been with increased fatigue. ) - Patient Data Vitals - Most Recent: Last Vital Signs Temp 97.3 F 08/07/19 03:16 Pulse 74 08/07/19 05:37 Resp 16 08/07/19 03:16 BP 140/97 H 08/07/19 05:37 Pulse Ox 94 L 08/07/19 05:40 Orthostatic Blood Pressure [ 110/78 Sitting] Orthostatic Blood Pressure [ 122/88 Standing] Orthostatic Blood Pressure [ 103/68 Supine] Weight - Most Recent: 207 lb 9.6 oz I&O - Last 24 Hours: Intake & Output 08/06/19 08/07/19 08/07/19 22:59 06:59 14:59 Intake Total 240 1100 Output Total 0 Balance 240 1100 Lab Results Last 24 Hrs: Laboratory Results - last 24 hr 08/06/19 08/07/19 Range/Units 10:40 06:38 WBC 14.85 H (3.98-10.04) K/mm3 RBC 3.58 L (3.98-5.22) M/mm3 Hgb 10.7 L (11.2-15.7) gm/dl Hct 33.9 L (34.1-44.9) % MCV 94.7 D (79.4-94.8) fl MCH 29.9 (25.6-32.2) pg MCHC 31.6 L (32.2-35.5) g/dl RDW Std Deviation 41.9 (36.4-46.3) fL Plt Count 271 D (182-369) K/mm3 MPV 11.5 (9.4-12.3) fl Blood Type A POSITIVE Gel Antibody Screen Negative Med Orders - Current: Current Medications Amlodipine Besylate (Norvasc) 5 mg PO DAILY [facility] Aspirin (Ecotrin) 325 mg PO BID [facility] Bisacodyl (Dulcolax) 5 mg PO DAILY PRN PRN Reason: Constipation Docusate Sodium (Colace) 100 mg PO BID [facility] Last Admin: 08/06/19 21:50 Dose: 100 mg Duloxetine HCl (Cymbalta) 60 mg PO DAILY [facility] Ezetimibe (Zetia) 10 mg PO DAILY [facility] Folic Acid (Folic Acid) 1 mg PO DAILY [facility] Gemfibrozil (Lopid) 600 mg PO DAILY [facility] Cefazolin Sodium/Dextrose 2 gm (/ Premix) 50 mls @ 100 mls/hr IV Q8H [facility] Stop: 08/07/19 10:59 Last Admin: 08/07/19 02:27 Dose: 100 mls/hr Lactated Ringer's (Ringers, Lactated) 1,000 mls @ 200 mls/hr IV ASDIRECTED [facility] Stop: 08/07/19 10:59 Last Admin: 08/07/19 07:37 Dose: 200 mls/hr Losartan Potassium (Cozaar) 50 mg PO DAILY [facility] Morphine Sulfate (Morphine) 2 mg IVPUSH Q2H PRN PRN Reason: Breakthrough Pain Naloxone HCl (Narcan) 0.1 mg IVPUSH Q5M PRN PRN Reason: Oversedation Ondansetron HCl (Zofran) 4 mg IVPUSH Q6H PRN PRN Reason: Nausea/Vomiting Oxycodone/Acetaminophen (Percocet 325-5 Mg) 1 - 2 tab PO Q4H PRN PRN Reason: Pain Last Admin: 08/06/19 22:28 Dose: 2 tab Pantoprazole Sodium (Protonix) 40 mg PO DAILY [facility] Fexofenadine Hcl 180 (Mg) 0 each PO DAILY [facility] Levocetirizine Dihydrochloride [ Xyzal] 5 Mg 0 each PO DAILY [facility] Propranolol HCl (Inderal La) 120 mg PO DAILY [facility] Senna (Senna) 8.6 mg PO BID PRN PRN Reason: Constipation Discontinued Medications Acetaminophen (Tylenol) 975 mg PO ONETIME [facility] Stop: 08/06/19 16:00 Acetaminophen (Tylenol) 975 mg PO ONETIME [facility] Stop: 08/06/19 14:00 Last Admin: 08/06/19 10:31 Dose: 975 mg Bupivacaine HCl (Sensorcaine-Mpf 0.25%) Confirm Administered Dose 30 ml .ROUTE .STK-MED ONE Stop: 08/06/19 10:23 Last Admin: 08/06/19 12:27 Dose: 30 ml Cefazolin Sodium (Ancef) Confirm Administered Dose 2 gm .ROUTE .STK-MED ONE Stop: 08/06/19 09:52 Last Admin: 08/06/19 12:23 Dose: 2 gm Cefazolin Sodium (Ancef) Confirm Administered Dose 2 gm .ROUTE .STK-MED ONE Stop: 08/06/19 10:22 Clonidine HCl (Duraclon) Confirm Administered Dose 1,000 mcg .ROUTE .STK-MED ONE Stop: 08/06/19 11:32 Morphine Sulfate 8 mg/Epinephrine HCl 0.3 mg/Cefuroxime Sodium 750 mg/Ketorolac Tromethamine 30 mg/Sodium Chloride 7.9 ml 0 mg .XX ONETIME ONE Stop: 08/06/19 10:01 Last Admin: 08/06/19 12:27 Dose: 788.3 mg Famotidine (Pepcid) 20 mg PO Q12H [facility] Fentanyl (Sublimaze) Confirm Administered Dose 100 mcg .ROUTE .STK-MED ONE Stop: 08/06/19 09:49 Glycopyrrolate () Confirm Administered Dose 1 mg .ROUTE .STK-MED ONE Stop: 08/06/19 12:06 Lactated Ringer's (Ringers, Lactated) 1,000 mls @ 125 mls/hr IV ASDIRECTED [facility] Stop: 08/06/19 23:00 Last Admin: 08/06/19 10:40 Dose: 125 mls/hr Lidocaine HCl (Xylocaine-Mpf 1%) Confirm Administered Dose 4 mls @ as directed .ROUTE .STK-MED ONE Stop: 08/06/19 09:50 Vancomycin HCl 1 gm/Vancomycin HCl 500 mg/ Sodium Chloride 500 mls @ 250 mls/ hr IV ONETIME [facility] Stop: 08/06/19 12:59 Last Admin: 08/06/19 11:05 Dose: 250 mls/hr Lactated Ringer's (Ringers, Lactated) Confirm Administered Dose 1,000 mls @ as directed .ROUTE .STK-MED ONE Stop: 08/06/19 12:54 Lactated Ringer's (Ringers, Lactated) 1,000 mls @ 999 mls/hr IV .BOLUS ONE Stop: 08/07/19 06:54 Last Admin: 08/07/19 06:02 Dose: 999 mls/hr Iodine (Iodine 2% Mild Tincture) Confirm Administered Dose 30 ml .ROUTE .STK- MED ONE Stop: 08/06/19 10:23 Last Admin: 08/06/19 12:21 Dose: 18 ml Lidocaine HCl (Xylocaine-Mpf 1%) Confirm Administered Dose 5 ml .ROUTE .STK-MED ONE Stop: 08/06/19 11:32 Lidocaine/Sodium Bicarbonate (Buffered Lidocaine 1% In Ns 8.4%) 0.25 ml IDERM ONETIME PRN PRN Reason: Prior to IV Start Stop: 08/06/19 18:00 Last Admin: 08/06/19 10:39 Dose: 0.25 ml Midazolam HCl (Versed 1 Mg/Ml) Confirm Administered Dose 2 mg .ROUTE .STK-MED ONE Stop: 08/06/19 09:51 Miscellaneous Medication (Phenylephrine 1 Mg/10 Ml-Ns) Confirm Administered Dose 1 mg IV .STK-MED ONE Stop: 08/06/19 12:28 Miscellaneous Medication (Phenylephrine 1 Mg/10 Ml-Ns) Confirm Administered Dose 1 mg IV .STK-MED ONE Stop: 08/06/19 12:54 Oxycodone HCl (Oxycontin) 10 mg PO ONETIME [facility] Stop: 08/06/19 16:00 Oxycodone HCl (Oxycontin) 10 mg PO ONETIME [facility] Stop: 08/06/19 14:00 Last Admin: 08/06/19 10:31 Dose: 10 mg Pregabalin (Lyrica) 50 mg PO ONETIME [facility] Stop: 08/06/19 16:00 Pregabalin (Lyrica) 50 mg PO ONETIME [facility] Stop: 08/06/19 14:00 Last Admin: 08/06/19 10:31 Dose: 50 mg Propofol (Diprivan 20 Ml) Confirm Administered Dose 200 mg .ROUTE .STK-MED ONE Stop: 08/06/19 09:50 Sodium Chloride (Saline Flush) 10 ml FLUSH ASDIRECTED PRN PRN Reason: Keep Vein Open Stop: 08/06/19 18:00 Tranexamic Acid (Cyklokapron) Confirm Administered Dose 1,000 mg .ROUTE .STK- MED ONE Stop: 08/06/19 10:22 Last Admin: 08/06/19 12:28 Dose: 1,000 mg Vancomycin HCl (Vancomycin) Confirm Administered Dose 1 gm .ROUTE .STK-MED ONE Stop: 08/06/19 10:23 Last Admin: 08/06/19 12:28 Dose: 1 gm - Exam Wound/Incisions: Dressing Dry and Intact General: Cooperative, No Acute Distress, Other (Oriented to person and place. Follows commands. Sleepy.) Extremities: Other (NVS intact for LLE. Deborah's negative. Left thigh soft.) Sepsis Event Note - Evaluation Sepsis Screening Result: No Definite Risk - Focused Exam Vital Signs: Vital Signs Temp Pulse Resp BP Pulse Ox Pulse Ox 08/07/19 05:40 94 L 08/07/19 05:37 74 140/97 H 100 08/07/19 05:35 100 08/07/19 05:32 98 08/07/19 03:16 97.3 F 60 16 118/53 L 96 08/07/19 00:03 97.2 F 56 L 16 94/49 L 93 L 08/06/19 21:06 97.3 F 58 L 16 97/66 94 L Date Exam was Performed: 08/07/19 Time Exam was Performed: 08:54 - Problem List Review Problem List Initiated/Reviewed/Updated: Yes - My Orders Last 24 Hours: Active Orders 24 hr Category Date Time Status Orthostatic Vital Signs [RC] ASDIRECTED Care 08/07/19 05:12 Active Pulse Oximetry [RC] .PRN Care 08/06/19 13:05 Active Regular Diet [DIET] Diet 08/06/19 Lunch Active COMPREHENSIVE METABOLIC PN,CMP [CHEM] AM Lab 08/07/19 06:38 Received Aspirin [Ecotrin] Med 08/07/19 09:00 Active 325 mg PO BID DULoxetine [Cymbalta] Med 08/07/19 09:00 Active 60 mg PO DAILY Docusate Sodium [Colace] Med 08/06/19 21:00 Active 100 mg PO BID Ezetimibe [Zetia] Med 08/07/19 09:00 Active 10 mg PO DAILY Folic Acid Med 08/07/19 09:00 Active 1 mg PO DAILY Lactated Ringers [Ringers, Lactated] 1,000 ml Med 08/07/19 06:00 Active IV ASDIRECTED Losartan [Cozaar] Med 08/07/19 09:00 Active 50 mg PO DAILY Pantoprazole [ProTONIX] Med 08/07/19 09:00 Active 40 mg PO DAILY Patient's Own Medication [Ptom] Med 08/07/19 09:00 Active 0 each PO DAILY Patient's Own Medication [Ptom] Med 03/10/20 09:00 Active 0 each PO DAILY Propranolol [Inderal LA] Med 08/07/19 09:00 Active 120 mg PO DAILY amLODIPine [Norvasc] Med 08/07/19 09:00 Active 5 mg PO DAILY ceFAZolin [Ancef] 2 gm Med 08/06/19 18:30 Active Premix Bag 1 bag IV Q8H gemfibroziL [Lopid] Med 08/07/19 09:00 Active 600 mg PO DAILY Pulse Oximetry Continuous Monitoring [OM.PC] Routine Oth 08/07/19 00:02 Active Medication Orders Amlodipine Besylate (Norvasc) 5 mg PO DAILY [facility] Aspirin (Ecotrin) 325 mg PO BID [facility] Bisacodyl (Dulcolax) 5 mg PO DAILY PRN PRN Reason: Constipation Docusate Sodium (Colace) 100 mg PO BID [facility] Last Admin: 08/06/19 21:50 Dose: 100 mg Duloxetine HCl (Cymbalta) 60 mg PO DAILY [facility] Ezetimibe (Zetia) 10 mg PO DAILY [facility] Folic Acid (Folic Acid) 1 mg PO DAILY [facility] Gemfibrozil (Lopid) 600 mg PO DAILY [facility] Cefazolin Sodium/Dextrose 2 gm (/ Premix) 50 mls @ 100 mls/hr IV Q8H [facility] Stop: 08/07/19 10:59 Last Admin: 08/07/19 02:27 Dose: 100 mls/hr Infusion: 08/06/19 18:50 Dose: 100 mls/hr Admin: 08/06/19 18:20 Dose: 100 mls/hr Lactated Ringer's (Ringers, Lactated) 1,000 mls @ 200 mls/hr IV ASDIRECTED [facility] Stop: 08/07/19 10:59 Last Admin: 08/07/19 07:37 Dose: 200 mls/hr Losartan Potassium (Cozaar) 50 mg PO DAILY [facility] Morphine Sulfate (Morphine) 2 mg IVPUSH Q2H PRN PRN Reason: Breakthrough Pain Naloxone HCl (Narcan) 0.1 mg IVPUSH Q5M PRN PRN Reason: Oversedation Ondansetron HCl (Zofran) 4 mg IVPUSH Q6H PRN PRN Reason: Nausea/Vomiting Oxycodone/Acetaminophen (Percocet 325-5 Mg) 1 - 2 tab PO Q4H PRN PRN Reason: Pain Last Admin: 08/06/19 22:28 Dose: 2 tab Admin: 08/06/19 18:19 Dose: 2 tab Pantoprazole Sodium (Protonix) 40 mg PO DAILY [facility] Fexofenadine Hcl 180 (Mg) 0 each PO DAILY [facility] Levocetirizine Dihydrochloride [ Xyzal] 5 Mg 0 each PO DAILY [facility] Propranolol HCl (Inderal La) 120 mg PO DAILY [facility] Senna (Senna) 8.6 mg PO BID PRN PRN Reason: Constipation - Assessment Assessment (Free Text/Narrative):: POD#1 - left RAGHAVENDRA - Plan Plan (Free Text/Narrative):: 1. Hgb 10.7. 2. 325mg ASA PO BID, frequent mobility, TEDs. 3. RAGHAVENDRA precautions. 4. Pt will remain in Hospital for continued monitoring and therapies. The pt's case was discussed with Dr. Garza.
[2019-08-07] MEDS: Propranolol 60 MG Cap.ER PO SCH (09:35)
[2019-08-07] MEDS: DULoxetine 30 MG Cap PO SCH (09:36)
[2019-08-07] MEDS: Aspirin 325 MG Tab.EC PO SCH ×2 (09:37→21:07)
[2019-08-07] MEDS: Gemfibrozil 600 MG Tab PO SCH (09:37)
[2019-08-07] MEDS: Losartan 25 MG Tab PO SCH (09:38)
[2019-08-07] MEDS: Docusate Sodium 100 MG Cap PO SCH ×2 (09:38→21:08)
[2019-08-07] MEDS: Pantoprazole 40 MG Tab.CR PO SCH (09:39)
[2019-08-07] MEDS: amLODIPine 5 MG Tab PO SCH (09:40)
[2019-08-07] MEDS: Ezetimibe 10 MG Tab PO SCH (09:40)
[2019-08-07] MEDS: Folic Acid 1 MG Tab PO SCH (09:40)
[2019-08-07] MEDS: Acetaminophen/HYDROcodone 325-5 MG Tab PO PRN ×2 (09:52→22:10)
[2019-08-07] MEDS: Naloxone 0.4 MG/ML SDV IVPUSH SCH ×3 (20:42→21:01)
[2019-08-08] MEDS: Acetaminophen/HYDROcodone 325-5 MG Tab PO PRN ×2 (06:33→15:04)
--- NOTE | 2019-08-08 07:12 | PCM.CONSN ---
- General Info Date of Service: 08/08/19 Admission Dx/Problem (Free Text): Admission Diagnosis/Problem Admission Diagnosis/Problem Osteoarthritis of hip Functional Status: Reports: Pain Controlled, Tolerating Diet, Ambulating, Urinating, Incentive Spirometry. Denies: New Symptoms - Review of Systems General: Reports: Weakness, Fatigue, Malaise. Denies: Fever, Chills HEENT: Reports: No Symptoms. Denies: Headaches, Sore Throat Pulmonary: Reports: No Symptoms. Denies: Shortness of Breath, Pleuritic Chest Pain, Cough, Sputum, Wheezing Cardiovascular: Reports: No Symptoms. Denies: Chest Pain, Palpitations, Dyspnea on Exertion Gastrointestinal: Reports: No Symptoms. Denies: Abdominal Pain, Constipation, Diarrhea, Nausea, Vomiting Genitourinary: Reports: No Symptoms. Denies: Pain Musculoskeletal: Reports: Leg Pain Skin: Reports: No Symptoms. Denies: Cyanosis Neurological: Reports: Difficulty Walking, Weakness, Gait Disturbance. Denies: Confusion Psychiatric: Reports: No Symptoms - Patient Data Vitals - Most Recent: Last Vital Signs Temp 98.2 F 08/08/19 03:48 Pulse 71 08/08/19 03:48 Resp 18 08/08/19 03:48 BP 109/60 08/08/19 03:48 Pulse Ox 95 08/08/19 03:48 Orthostatic Blood Pressure [ 110/78 Sitting] Orthostatic Blood Pressure [ 122/88 Standing] Orthostatic Blood Pressure [ 103/68 Supine] Weight - Most Recent: 213 lb 9.6 oz I&O - Last 24 Hours: Intake & Output 08/07/19 08/08/19 08/08/19 22:59 06:59 14:59 Intake Total 2750 800 Output Total 600 850 Balance 2150 -50 Lab Results Last 24 Hours: Laboratory Results - last 24 hr 08/07/19 08/07/19 08/07/19 Range/Units 06:38 06:38 14:03 WBC 14.85 H (3.98-10.04) K/mm3 RBC 3.58 L (3.98-5.22) M/mm3 Hgb 10.7 L (11.2-15.7) gm/dl Hct 33.9 L (34.1-44.9) % MCV 94.7 D (79.4-94.8) fl MCH 29.9 (25.6-32.2) pg MCHC 31.6 L (32.2-35.5) g/dl RDW Std Deviation 41.9 (36.4-46.3) fL Plt Count 271 D (182-369) K/mm3 MPV 11.5 (9.4-12.3) fl Puncture Site Rt radial ABG pH 7.23 L (7.35-7.45) ABG pCO2 57.4 H (35.0-45.0) mmHg ABG pO2 75.0 L (80.0-100.0) mmHg ABG HCO3 23.1 (22.0-26.0) meq/L ABG O2 Saturation 94.2 L (96.0-97.0) % ABG Base Excess -4.3 L (-2-2.0) [place] Test Positive A-a Gradient 53 mmHg O2 Delivery Device Nasal cannula Oxygen Flow Rate 2.0 FiO2 24.00 (21.00-100.00) % Sodium 138 (136-145) mEq/L Potassium 5.1 (3.5-5.1) mEq/L Chloride 104 (98-107) mEq/L Carbon Dioxide 23 (21-32) mEq/L Anion Gap 16.1 H (5-15) BUN 28 H (7-18) mg/dL Creatinine 2.2 H (0.55-1.02) mg/dL Est Cr Clr Drug Dosing 20.53 mL/min Estimated GFR (MDRD) 22 (>60) mL/min BUN/Creatinine Ratio 12.7 L (14-18) Glucose 126 H (80-115) mg/dL Calcium 8.9 (8.5-10.1) mg/dL Magnesium (1.8-2.4) mg/dl Total Bilirubin 0.5 (0.2-1.0) mg/dL AST 63 H (15-37) U/L ALT 41 (14-59) U/L Alkaline Phosphatase 118 H (46-116) U/L Total Protein 7.5 (6.4-8.2) g/dl Albumin 3.1 L (3.4-5.0) g/dl Globulin 4.4 gm/dL Albumin/Globulin Ratio 0.7 L (1-2) 08/07/19 08/08/19 Range/Units 16:56 05:11 WBC (3.98-10.04) K/mm3 RBC (3.98-5.22) M/mm3 Hgb (11.2-15.7) gm/dl Hct (34.1-44.9) % MCV (79.4-94.8) fl MCH (25.6-32.2) pg MCHC (32.2-35.5) g/dl RDW Std Deviation (36.4-46.3) fL Plt Count (182-369) K/mm3 MPV (9.4-12.3) fl Puncture Site Lt radial ABG pH 7.25 L (7.35-7.45) ABG pCO2 54.7 H (35.0-45.0) mmHg ABG pO2 72.0 L (80.0-100.0) mmHg ABG HCO3 23.0 (22.0-26.0) meq/L ABG O2 Saturation 93.4 L (96.0-97.0) % ABG Base Excess -4.0 L (-2-2.0) [place] Test Positive A-a Gradient 88 mmHg O2 Delivery Device Cpap auto Oxygen Flow Rate 3.0 FiO2 36.00 (21.00-100.00) % Sodium 138 (136-145) mEq/L Potassium 4.4 (3.5-5.1) mEq/L Chloride 104 (98-107) mEq/L Carbon Dioxide 24 (21-32) mEq/L Anion Gap 14.4 (5-15) BUN 26 H (7-18) mg/dL Creatinine 1.5 H (0.55-1.02) mg/dL Est Cr Clr Drug Dosing 30.11 mL/min Estimated GFR (MDRD) 35 (>60) mL/min BUN/Creatinine Ratio 17.3 (14-18) Glucose 106 (80-115) mg/dL Calcium 8.7 (8.5-10.1) mg/dL Magnesium 2.0 (1.8-2.4) mg/dl Total Bilirubin 0.6 (0.2-1.0) mg/dL AST 59 H (15-37) U/L ALT 25 (14-59) U/L Alkaline Phosphatase 108 (46-116) U/L Total Protein 7.0 (6.4-8.2) g/dl Albumin 2.7 L (3.4-5.0) g/dl Globulin 4.3 gm/dL Albumin/Globulin Ratio 0.6 L (1-2) Med Orders - Current: Current Medications Hydrocodone Bitart/Acetaminophen ([place] 325-5 Mg) 1 - 2 tab PO Q6H PRN PRN Reason: Pain Last Admin: 08/08/19 06:33 Dose: 1 tab Amlodipine Besylate (Norvasc) 5 mg PO DAILY [facility] Last Admin: 08/07/19 09:40 Dose: 5 mg Aspirin (Ecotrin) 325 mg PO BID [facility] Last Admin: 08/07/19 21:07 Dose: 325 mg Bisacodyl (Dulcolax) 5 mg PO DAILY PRN PRN Reason: Constipation Docusate Sodium (Colace) 100 mg PO BID [facility] Last Admin: 08/07/19 21:08 Dose: 100 mg Duloxetine HCl (Cymbalta) 60 mg PO DAILY [facility] Last Admin: 08/07/19 09:36 Dose: 60 mg Ezetimibe (Zetia) 10 mg PO DAILY [facility] Last Admin: 08/07/19 09:40 Dose: 10 mg Folic Acid (Folic Acid) 1 mg PO DAILY [facility] Last Admin: 08/07/19 09:40 Dose: 1 mg Gemfibrozil (Lopid) 600 mg PO DAILY [facility] Last Admin: 08/07/19 09:37 Dose: 600 mg Losartan Potassium (Cozaar) 50 mg PO DAILY [facility] Last Admin: 08/07/19 09:38 Dose: 50 mg Morphine Sulfate (Morphine) 2 mg IVPUSH Q2H PRN PRN Reason: Breakthrough Pain Naloxone HCl (Narcan) 0.1 mg IVPUSH Q5M PRN PRN Reason: Oversedation Ondansetron HCl (Zofran) 4 mg IVPUSH Q6H PRN PRN Reason: Nausea/Vomiting Last Admin: 08/07/19 11:10 Dose: 4 mg Pantoprazole Sodium (Protonix) 40 mg PO DAILY [facility] Last Admin: 08/07/19 09:39 Dose: 40 mg Fexofenadine Hcl 180 (Mg) 0 each PO DAILY [facility] Levocetirizine Dihydrochloride [ Xyzal] 5 Mg 0 each PO DAILY [facility] Propranolol HCl (Inderal La) 120 mg PO DAILY [facility] Last Admin: 08/07/19 09:35 Dose: 120 mg Senna (Senna) 8.6 mg PO BID PRN PRN Reason: Constipation Discontinued Medications Acetaminophen (Tylenol) 975 mg PO ONETIME [facility] Stop: 08/06/19 16:00 Acetaminophen (Tylenol) 975 mg PO ONETIME [facility] Stop: 08/06/19 14:00 Last Admin: 08/06/19 10:31 Dose: 975 mg Bupivacaine HCl (Sensorcaine-Mpf 0.25%) Confirm Administered Dose 30 ml .ROUTE .STK-MED ONE Stop: 08/06/19 10:23 Last Admin: 08/06/19 12:27 Dose: 30 ml Cefazolin Sodium (Ancef) Confirm Administered Dose 2 gm .ROUTE .STK-MED ONE Stop: 08/06/19 09:52 Last Admin: 08/06/19 12:23 Dose: 2 gm Cefazolin Sodium (Ancef) Confirm Administered Dose 2 gm .ROUTE .STK-MED ONE Stop: 08/06/19 10:22 Clonidine HCl (Duraclon) Confirm Administered Dose 1,000 mcg .ROUTE .STK-MED ONE Stop: 08/06/19 11:32 Morphine Sulfate 8 mg/Epinephrine HCl 0.3 mg/Cefuroxime Sodium 750 mg/Ketorolac Tromethamine 30 mg/Sodium Chloride 7.9 ml 0 mg .XX ONETIME ONE Stop: 08/06/19 10:01 Last Admin: 08/06/19 12:27 Dose: 788.3 mg Famotidine (Pepcid) 20 mg PO Q12H [facility] Fentanyl (Sublimaze) Confirm Administered Dose 100 mcg .ROUTE .STK-MED ONE Stop: 08/06/19 09:49 Glycopyrrolate () Confirm Administered Dose 1 mg .ROUTE .STK-MED ONE Stop: 08/06/19 12:06 Lactated Ringer's (Ringers, Lactated) 1,000 mls @ 125 mls/hr IV ASDIRECTED [facility] Stop: 08/06/19 23:00 Last Admin: 08/06/19 10:40 Dose: 125 mls/hr Cefazolin Sodium/Dextrose 2 gm (/ Premix) 50 mls @ 100 mls/hr IV Q8H [facility] Stop: 08/07/19 10:59 Last Admin: 08/07/19 09:44 Dose: 100 mls/hr Lidocaine HCl (Xylocaine-Mpf 1%) Confirm Administered Dose 4 mls @ as directed .ROUTE .STK-MED ONE Stop: 08/06/19 09:50 Vancomycin HCl 1 gm/Vancomycin HCl 500 mg/ Sodium Chloride 500 mls @ 250 mls/ hr IV ONETIME ONE Stop: 08/06/19 12:59 Last Admin: 08/06/19 11:05 Dose: 250 mls/hr Lactated Ringer's (Ringers, Lactated) Confirm Administered Dose 1,000 mls @ as directed .ROUTE .STK-MED ONE Stop: 08/06/19 12:54 Lactated Ringer's (Ringers, Lactated) 1,000 mls @ 999 mls/hr IV .BOLUS ONE Stop: 08/07/19 06:54 Last Admin: 08/07/19 06:02 Dose: 999 mls/hr Lactated Ringer's (Ringers, Lactated) 1,000 mls @ 200 mls/hr IV ASDIRECTED [facility] Stop: 08/07/19 10:59 Last Admin: 08/07/19 07:37 Dose: 200 mls/hr Iodine (Iodine 2% Mild Tincture) Confirm Administered Dose 30 ml .ROUTE .STK- MED ONE Stop: 08/06/19 10:23 Last Admin: 08/06/19 12:21 Dose: 18 ml Lidocaine HCl (Xylocaine-Mpf 1%) Confirm Administered Dose 5 ml .ROUTE .STK-MED ONE Stop: 08/06/19 11:32 Lidocaine/Sodium Bicarbonate (Buffered Lidocaine 1% In Ns 8.4%) 0.25 ml IDERM ONETIME PRN PRN Reason: Prior to IV Start Stop: 08/06/19 18:00 Last Admin: 08/06/19 10:39 Dose: 0.25 ml Midazolam HCl (Versed 1 Mg/Ml) Confirm Administered Dose 2 mg .ROUTE .STK-MED ONE Stop: 08/06/19 09:51 Miscellaneous Medication (Phenylephrine 1 Mg/10 Ml-Ns) Confirm Administered Dose 1 mg IV .STK-MED ONE Stop: 08/06/19 12:28 Miscellaneous Medication (Phenylephrine 1 Mg/10 Ml-Ns) Confirm Administered Dose 1 mg IV .STK-MED ONE Stop: 08/06/19 12:54 Naloxone HCl (Narcan) 0.4 mg IVPUSH Q3M [facility] Stop: 08/07/19 20:22 Last Admin: 08/07/19 21:01 Dose: 0.4 mg Oxycodone HCl (Oxycontin) 10 mg PO ONETIME [facility] Stop: 08/06/19 16:00 Oxycodone HCl (Oxycontin) 10 mg PO ONETIME [facility] Stop: 08/06/19 14:00 Last Admin: 08/06/19 10:31 Dose: 10 mg Oxycodone/Acetaminophen (Percocet 325-5 Mg) 1 - 2 tab PO Q4H PRN PRN Reason: Pain Last Admin: 08/06/19 22:28 Dose: 2 tab Fexofenadine Hcl 180 (Mg) 0 each PO DAILY [facility] Last Admin: 08/07/19 09:42 Dose: Not Given Levocetirizine Dihydrochloride [ Xyzal] 5 Mg 0 each PO DAILY [facility] Last Admin: 08/07/19 09:42 Dose: Not Given Pregabalin (Lyrica) 50 mg PO ONETIME [facility] Stop: 08/06/19 16:00 Pregabalin (Lyrica) 50 mg PO ONETIME [facility] Stop: 08/06/19 14:00 Last Admin: 08/06/19 10:31 Dose: 50 mg Propofol (Diprivan 20 Ml) Confirm Administered Dose 200 mg .ROUTE .STK-MED ONE Stop: 08/06/19 09:50 Sodium Chloride (Saline Flush) 10 ml FLUSH ASDIRECTED PRN PRN Reason: Keep Vein Open Stop: 08/06/19 18:00 Tranexamic Acid (Cyklokapron) Confirm Administered Dose 1,000 mg .ROUTE .STK- MED ONE Stop: 08/06/19 10:22 Last Admin: 08/06/19 12:28 Dose: 1,000 mg Vancomycin HCl (Vancomycin) Confirm Administered Dose 1 gm .ROUTE .STK-MED ONE Stop: 08/06/19 10:23 Last Admin: 08/06/19 12:28 Dose: 1 gm - Exam Quality Assessment: Supplemental Oxygen (3l), DVT Prophylaxis General: Alert, Oriented, Cooperative, No Acute Distress, Other (Sleepy at times ) HEENT: Pupils Equal, Pupils Reactive, Mucous Membr. Moist/[place] Neck: Supple, Trachea Midline Lungs: Normal Respiratory Effort, Decreased Breath Sounds Cardiovascular: Regular Rate, Regular Rhythm GI/Abdominal Exam: Normal Bowel Sounds, Soft, Non-Tender, No Distention (Female) Exam: Deferred Back Exam: Normal Inspection, Full Range of Motion Extremities: Normal Capillary Refill, Leg Pain, Limited Range of Motion, Other ( Bandage in place on left leg. Bandage is dry and intact. ) Peripheral Pulses: 2+: Radial (L), Radial (R), Dorsalis Pedis (L), Dorsalis Pedis (R) Skin: Warm, Dry, Intact Wound/Incisions: Dressing Dry and Intact Neurological: No New Focal Deficit Psy/Mental Status: Alert, Normal Affect, Normal Mood Sepsis Event Note - Evaluation Sepsis Screening Result: No Definite Risk - Focused Exam Vital Signs: Vital Signs Temp Pulse Resp BP Pulse Ox Pulse Ox 08/08/19 03:48 98.2 F 71 18 109/60 95 08/08/19 02:11 93 L 08/07/19 23:25 97.5 F 76 18 104/67 93 L 08/07/19 22:48 93 L 08/07/19 21:06 97.3 F 73 16 134/79 98 Date Exam was Performed: 08/08/19 Time Exam was Performed: 13:08 Consult PN Assessment/Plan POD#: 2 Procedures: Procedures AFTER CATARACT LASER SURGERY (08/17/16) ASSAY OF CREATININE (11/22/13) ASSAY OF MAGNESIUM (11/14/13) BLOOD CULTURE FOR BACTERIA (11/14/13) C-REACTIVE PROTEIN (11/14/13) CHEST X-RAY 2VW FRONTAL&LATL (11/14/13) COMPLETE CBC W/AUTO DIFF WBC (11/14/13) COMPREHEN METABOLIC PANEL (11/14/13) CT HEAD/BRAIN W/O DYE (11/14/13) CULTURE SCREEN ONLY (04/09/18) EMERGENCY DEPT VISIT (09/10/14) GAIT TRAINING THERAPY (11/14/13) HEPATITIS B SURFACE AG IA (09/10/14) HEPATITIS C AB TEST (09/10/14) MEASURE BLOOD OXYGEN LEVEL (11/14/13) MEASURE BLOOD OXYGEN LEVEL (11/14/13) MR ANGIOGRAPHY HEAD W/O DYE (11/14/13) MRI BRAIN STEM W/O & W/DYE (11/14/13) MRI NECK SPINE W/O DYE (11/22/13) PARATHYRD PLANAR W/SPECT&CT (11/18/14) POLYSOM 6/> YRS 4/> BEREKET (12/14/16) PT EVALUATION (11/14/13) ROUTINE VENIPUNCTURE (11/22/13) URINALYSIS AUTO W/SCOPE (11/14/13) URINE BACTERIA CULTURE (11/14/13) WEST NILE VIRUS AB IGM (11/14/13) (1) S/P total hip arthroplasty SNOMED Code(s): 713940557480, 438813259353 Code(s): Z96.649 - PRESENCE OF UNSPECIFIED ARTIFICIAL HIP JOINT Priority: High Current Visit: Yes Qualifiers: Laterality: left Qualified Code(s): Z96.642 - Presence of left artificial hip joint (2) Osteoarthritis SNOMED Code(s): 961324807 Code(s): M19.90 - UNSPECIFIED OSTEOARTHRITIS, UNSPECIFIED SITE Priority: High Current Visit: Yes Qualifiers: Osteoarthritis location: hip Osteoarthritis type: primary Laterality: left Qualified Code(s): M16.12 - Unilateral primary osteoarthritis, left hip (3) Positive result for methicillin resistant Staphylococcus aureus (MRSA) screening SNOMED Code(s): 059488672 Code(s): Z22.322 - CARRIER OR SUSPECTED CARRIER OF METHICILLIN RESIS STAPH Priority: Medium Current Visit: Yes (4) Former smoker SNOMED Code(s): 6159678 Code(s): Z87.891 - PERSONAL HISTORY OF NICOTINE DEPENDENCE Priority: Low Current Visit: No (5) Rheumatoid arthritis SNOMED Code(s): 42860537 Code(s): M06.9 - RHEUMATOID ARTHRITIS, UNSPECIFIED Priority: Low Current Visit: No Qualifiers: Rheumatoid arthritis location: unspecified site Rheumatoid factor presence : unspecified presence Qualified Code(s): M06.9 - Rheumatoid arthritis, unspecified (6) Gout SNOMED Code(s): 09069584 Code(s): M10.9 - GOUT, UNSPECIFIED Priority: Low Current Visit: No Qualifiers: Gout site: unspecified site Gout etiology: unspecified cause Chronicity: unspecified Qualified Code(s): M10.9 - Gout, unspecified (7) Insomnia SNOMED Code(s): 383260925 Code(s): G47.00 - INSOMNIA, UNSPECIFIED Priority: Low Current Visit: No Qualifiers: Insomnia type: unspecified Qualified Code(s): G47.00 - Insomnia, unspecified (8) GERD (gastroesophageal reflux disease) SNOMED Code(s): 830219104 Code(s): K21.9 - GASTRO-ESOPHAGEAL REFLUX DISEASE WITHOUT ESOPHAGITIS Priority: Low Current Visit: No Qualifiers: Esophagitis presence: esophagitis presence not specified Qualified Code(s) : K21.9 - Gastro-esophageal reflux disease without esophagitis (9) Depression SNOMED Code(s): 69025104 Code(s): F32.9 - MAJOR DEPRESSIVE DISORDER, SINGLE EPISODE, UNSPECIFIED Priority: Low Current Visit: No Qualifiers: Depression Type: other depression Qualified Code(s): F32.89 - Other specified depressive episodes (10) Osteoporosis SNOMED Code(s): 37899536 Code(s): M81.0 - AGE-RELATED OSTEOPOROSIS W/O CURRENT PATHOLOGICAL FRACTURE Priority: Low Current Visit: No Qualifiers: Osteoporosis type: unspecified Presence of current pathological fracture: unspecified Qualified Code(s): M81.0 - Age-related osteoporosis without current pathological fracture (11) TMJ (temporomandibular joint syndrome) SNOMED Code(s): 46797320 Code(s): M26.609 - UNSPECIFIED TMJ JOINT DISORDER, UNSPECIFIED SIDE Priority: Low Current Visit: No (12) HTN (hypertension) SNOMED Code(s): 96152596 Code(s): I10 - ESSENTIAL (PRIMARY) HYPERTENSION Priority: Medium Current Visit: No Qualifiers: Hypertension type: unspecified Qualified Code(s): I10 - Essential (primary ) hypertension (13) Anemia SNOMED Code(s): 526168738 Code(s): D64.9 - ANEMIA, UNSPECIFIED Priority: Low Current Visit: No Qualifiers: Anemia type: unspecified type Qualified Code(s): D64.9 - Anemia, unspecified (14) Headache SNOMED Code(s): 50441111 Code(s): R51 - HEADACHE Priority: Low Current Visit: No Qualifiers: Headache type: unspecified Headache chronicity pattern: unspecified pattern Intractability: not intractable Qualified Code(s): R51 - Headache (15) Intracranial vascular stenosis SNOMED Code(s): 91961138 Code(s): I67.9 - CEREBROVASCULAR DISEASE, UNSPECIFIED Priority: Low Current Visit: No (16) Vitamin D deficiency SNOMED Code(s): 80512764 Code(s): E55.9 - VITAMIN D DEFICIENCY, UNSPECIFIED Priority: Low Current Visit: No (17) Rash SNOMED Code(s): 203033358 Code(s): R21 - RASH AND OTHER NONSPECIFIC SKIN ERUPTION Priority: Low Current Visit: No (18) HLD (hyperlipidemia) SNOMED Code(s): 06452961 Code(s): E78.5 - HYPERLIPIDEMIA, UNSPECIFIED Priority: Low Current Visit : No Qualifiers: Hyperlipidemia type: unspecified Qualified Code(s): E78.5 - Hyperlipidemia , unspecified (19) Sleep apnea SNOMED Code(s): 06247415 Code(s): G47.30 - SLEEP APNEA, UNSPECIFIED Priority: Low Current Visit: No Qualifiers: Sleep apnea type: unspecified type Qualified Code(s): G47.30 - Sleep apnea , unspecified (20) Basal cell carcinoma (BCC) SNOMED Code(s): 247289534 Code(s): C44.91 - BASAL CELL CARCINOMA OF SKIN, UNSPECIFIED Priority: Low Current Visit: No Qualifiers: Basal cell carcinoma location: unspecified site Qualified Code(s): C44.91 - Basal cell carcinoma of skin, unspecified (21) Cervical radiculopathy SNOMED Code(s): 87086303 Code(s): M54.12 - RADICULOPATHY, CERVICAL REGION Priority: Low Current Visit: No (22) CKD (chronic kidney disease) stage 3, GFR 30-59 ml/min SNOMED Code(s): 968748371 Code(s): N18.3 - CHRONIC KIDNEY DISEASE, STAGE 3 (MODERATE) Priority: Medium Current Visit: Yes (23) Postoperative urinary retention SNOMED Code(s): 122909385 Code(s): N99.89 - OTH POSTPROCEDURAL COMPLICATIONS AND DISORDERS OF SYS; R33.8 - OTHER RETENTION OF URINE Priority: High Current Visit: Yes (24) Altered mental state SNOMED Code(s): 166923486 Code(s): R41.82 - ALTERED MENTAL STATUS, UNSPECIFIED Priority: High Current Visit: Yes Qualifiers: Altered mental status type: unspecified Qualified Code(s): R41.82 - Altered mental status, unspecified (25) Hypercapnemia SNOMED Code(s): 86531489 Code(s): R06.89 - OTHER ABNORMALITIES OF BREATHING Priority: High Current Visit: Yes (26) Acute hypercapnic respiratory failure SNOMED Code(s): 774389553 Code(s): J96.02 - ACUTE RESPIRATORY FAILURE WITH HYPERCAPNIA Priority: High Current Visit: Yes Problem List Initiated/Reviewed/Updated: Yes My Orders Last 24 Hours: My Active Orders 08/07/19 15:05 BIPAP [RT BiPAP/CPAP] [RC] ASDIRECTED 08/08/19 05:11 CBC WITH AUTO DIFF [HEME] AM Plan: I/P: Acute: S/P left total hip arthroplasty - post-operative day 2 -DVT prophylaxis and pain management per primary care team -PT/OT -IS/RT -Monitor oxygen saturation -Titrate oxygen as needed -Home medications reviewed -Vital signs stable -Monitor labs -Pre-operative Hgb was 13.2; Now 10.7 -Pre-operative GFR was 38; Now 22-->35 -Pre-operative creatinine was 1.37; Now 2.2-->1.5 -Pre-operative BUN was 27; Now 28-->26 Osteoarthritis of left hip -Pain management per primary care team Acute weakness -2/2 anesthesia -PT/OT -Caution with pain medications -Narcan given last night NOREEN, improved -Kidney function labs as above -Started on IV fluids last night -Improved urine output - monitor S/P Post-operative urinary retention -IV fluids given -Straight catheter per protocol -Monitor Hypercapnia with acute respiratory failure -Very sleepy but A&Ox3 -Likely exacerbated by anesthesia -ABG shows metabolic acidosis -Underlying BETTINA - reportedly underwent one of the 2 stages of sleep study -BiPAP -O2 as needed -RT to monitor -IS when not on BiPAP Chronic: Positive MRSA Screen RA Gout Insomnia GERD Depression Osteoporosis TMJ HTN Anemia Headache Intracranial vascular stenosis Vitamin D deficiency Rash HLD Untreated Sleep Apnea CKD Cervical radiculopathy Basal cell carcinoma Plan: CM for discharge planning SW for possible SNF placement GI prophylaxis Home medications as indicated Other orders as listed above Contact isolation Routine AM labs She is a full code. Her PCP is Dr. Dias. From a hospitalist standpoint Zamzam is doing ok. She continues to be sleepy at times and was sleeping most of yesterday. Kidney function has improved and she has urinated with IV fluids. She was given narcan last night with a improvement , however today she continues to be sleepy. ABG was obtained which shows metabolic acidosis. Her alertness continues to wax and wane. She has been working with PT/OT a bit. She remains on O2. BiPAP has been ordered an RT has been consulted. At this point therapies is recommending SNF placement. reports patient underwent the first part of a sleep study but due to a communication problem she never underwent the second part. Suspect underlying BETTINA is partially to blame. reports patient frequently falls asleep at home as well. Thank you for allowing us to participate in the care of this patient!! Will need outpatient sleep study after discharge.
[2019-08-08] MEDS: Docusate Sodium 100 MG Cap PO SCH ×2 (09:16→21:05)
[2019-08-08] MEDS: Aspirin 325 MG Tab.EC PO SCH ×2 (09:16→21:05)
[2019-08-08] MEDS: DULoxetine 30 MG Cap PO SCH (09:16)
[2019-08-08] MEDS: Losartan 25 MG Tab PO SCH (09:17)
[2019-08-08] MEDS: Folic Acid 1 MG Tab PO SCH (09:18)
[2019-08-08] MEDS: Pantoprazole 40 MG Tab.CR PO SCH (09:18)
[2019-08-08] MEDS: amLODIPine 5 MG Tab PO SCH (09:18)
[2019-08-08] MEDS: Propranolol 60 MG Cap.ER PO SCH (09:19)
[2019-08-08] MEDS: Gemfibrozil 600 MG Tab PO SCH (09:19)
[2019-08-08] MEDS: Ezetimibe 10 MG Tab PO SCH (09:20)
--- NOTE | 2019-08-08 21:21 | PCM.SURGPN ---
- General Info Date of Service: 08/08/19 POD#: 2 Functional Status: Reports: Other (The pt has been more alert and interactive today.) - Patient Data Vitals - Most Recent: Last Vital Signs Temp 98.1 F 08/08/19 21:07 Pulse 69 08/08/19 21:07 Resp 16 08/08/19 21:07 BP 101/59 L 08/08/19 21:07 Pulse Ox 94 L 08/08/19 21:07 Orthostatic Blood Pressure [ 110/78 Sitting] Orthostatic Blood Pressure [ 122/88 Standing] Orthostatic Blood Pressure [ 103/68 Supine] Weight - Most Recent: 213 lb 9.6 oz I&O - Last 24 Hours: Intake & Output 08/08/19 08/08/19 08/08/19 06:59 14:59 22:59 Intake Total 800 120 150 Output Total 850 400 Balance -50 120 -250 Lab Results Last 24 Hrs: Laboratory Results - last 24 hr 08/08/19 08/08/19 08/08/19 Range/Units 05:11 05:11 10:55 WBC 9.00 (3.98-10.04) K/mm3 RBC 3.29 L (3.98-5.22) M/mm3 Hgb 9.8 L (11.2-15.7) gm/dl Hct 30.7 L (34.1-44.9) % MCV 93.3 (79.4-94.8) fl MCH 29.8 (25.6-32.2) pg MCHC 31.9 L (32.2-35.5) g/dl RDW Std Deviation 40.2 (36.4-46.3) fL Plt Count 206 (182-369) K/mm3 MPV 12.3 (9.4-12.3) fl Neut % (Auto) 65.5 (34.0-71.1) % Lymph % (Auto) 15.6 L (19.3-51.7) % [place] % (Auto) 14.0 H (4.7-12.5) % Eos % (Auto) 4.0 (0.7-5.8) Baso % (Auto) 0.2 (0.1-1.2) % Neut # (Auto) 5.90 (1.56-6.13) K/mm3 Lymph # (Auto) 1.40 (1.18-3.74) K/mm3 [place] # (Auto) 1.26 H (0.24-0.36) K/mm3 Eos # (Auto) 0.36 (0.04-0.36) K/mm3 Baso # (Auto) 0.02 (0.01-0.08) K/mm3 Puncture Site Rt radial ABG pH 7.26 L (7.35-7.45) ABG pCO2 54.8 H (35.0-45.0) mmHg ABG pO2 82.0 (80.0-100.0) mmHg ABG HCO3 23.9 (22.0-26.0) meq/L ABG O2 Saturation 95.0 L (96.0-97.0) % ABG Base Excess -2.9 L (-2-2.0) [place] Test Positive A-a Gradient 79 mmHg O2 Delivery Device Nasal cannula Oxygen Flow Rate 3.0 FiO2 32.00 (21.00-100.00) % Sodium 138 (136-145) mEq/L Potassium 4.4 (3.5-5.1) mEq/L Chloride 104 (98-107) mEq/L Carbon Dioxide 24 (21-32) mEq/L Anion Gap 14.4 (5-15) BUN 26 H (7-18) mg/dL Creatinine 1.5 H (0.55-1.02) mg/dL Est Cr Clr Drug Dosing 30.11 mL/min Estimated GFR (MDRD) 35 (>60) mL/min BUN/Creatinine Ratio 17.3 (14-18) Glucose 106 (80-115) mg/dL Calcium 8.7 (8.5-10.1) mg/dL Magnesium 2.0 (1.8-2.4) mg/dl Total Bilirubin 0.6 (0.2-1.0) mg/dL AST 59 H (15-37) U/L ALT 25 (14-59) U/L Alkaline Phosphatase 108 (46-116) U/L Total Protein 7.0 (6.4-8.2) g/dl Albumin 2.7 L (3.4-5.0) g/dl Globulin 4.3 gm/dL Albumin/Globulin Ratio 0.6 L (1-2) 08/08/19 Range/Units 14:58 WBC (3.98-10.04) K/mm3 RBC (3.98-5.22) M/mm3 Hgb (11.2-15.7) gm/dl Hct (34.1-44.9) % MCV (79.4-94.8) fl MCH (25.6-32.2) pg MCHC (32.2-35.5) g/dl RDW Std Deviation (36.4-46.3) fL Plt Count (182-369) K/mm3 MPV (9.4-12.3) fl Neut % (Auto) (34.0-71.1) % Lymph % (Auto) (19.3-51.7) % [place] % (Auto) (4.7-12.5) % Eos % (Auto) (0.7-5.8) Baso % (Auto) (0.1-1.2) % Neut # (Auto) (1.56-6.13) K/mm3 Lymph # (Auto) (1.18-3.74) K/mm3 [place] # (Auto) (0.24-0.36) K/mm3 Eos # (Auto) (0.04-0.36) K/mm3 Baso # (Auto) (0.01-0.08) K/mm3 Puncture Site Lt radial ABG pH 7.31 L (7.35-7.45) ABG pCO2 51.0 H (35.0-45.0) mmHg ABG pO2 73.0 L (80.0-100.0) mmHg ABG HCO3 25.0 (22.0-26.0) meq/L ABG O2 Saturation 94.2 L (96.0-97.0) % ABG Base Excess -1.0 (-2-2.0) [place] Test Positive A-a Gradient 92 mmHg O2 Delivery Device Bipap 12/6 Oxygen Flow Rate 3.0 FiO2 32.00 (21.00-100.00) % Sodium (136-145) mEq/L Potassium (3.5-5.1) mEq/L Chloride (98-107) mEq/L Carbon Dioxide (21-32) mEq/L Anion Gap (5-15) BUN (7-18) mg/dL Creatinine (0.55-1.02) mg/dL Est Cr Clr Drug Dosing mL/min Estimated GFR (MDRD) (>60) mL/min BUN/Creatinine Ratio (14-18) Glucose (80-115) mg/dL Calcium (8.5-10.1) mg/dL Magnesium (1.8-2.4) mg/dl Total Bilirubin (0.2-1.0) mg/dL AST (15-37) U/L ALT (14-59) U/L Alkaline Phosphatase (46-116) U/L Total Protein (6.4-8.2) g/dl Albumin (3.4-5.0) g/dl Globulin gm/dL Albumin/Globulin Ratio (1-2) Med Orders - Current: Current Medications Hydrocodone Bitart/Acetaminophen ([place] 325-5 Mg) 1 - 2 tab PO Q6H PRN PRN Reason: Pain Last Admin: 08/08/19 15:04 Dose: 1 tab Amlodipine Besylate (Norvasc) 5 mg PO DAILY [facility] Last Admin: 08/08/19 09:18 Dose: 5 mg Aspirin (Ecotrin) 325 mg PO BID [facility] Last Admin: 08/08/19 21:05 Dose: 325 mg Bisacodyl (Dulcolax) 5 mg PO DAILY PRN PRN Reason: Constipation Last Admin: 08/08/19 21:05 Dose: 5 mg Docusate Sodium (Colace) 100 mg PO BID [facility] Last Admin: 08/08/19 21:05 Dose: 100 mg Duloxetine HCl (Cymbalta) 60 mg PO DAILY [facility] Last Admin: 08/08/19 09:16 Dose: 60 mg Ezetimibe (Zetia) 10 mg PO DAILY [facility] Last Admin: 08/08/19 09:20 Dose: 10 mg Folic Acid (Folic Acid) 1 mg PO DAILY [facility] Last Admin: 08/08/19 09:18 Dose: 1 mg Gemfibrozil (Lopid) 600 mg PO DAILY [facility] Last Admin: 08/08/19 09:19 Dose: 600 mg Losartan Potassium (Cozaar) 50 mg PO DAILY [facility] Last Admin: 08/08/19 09:17 Dose: 50 mg Morphine Sulfate (Morphine) 2 mg IVPUSH Q2H PRN PRN Reason: Breakthrough Pain Naloxone HCl (Narcan) 0.1 mg IVPUSH Q5M PRN PRN Reason: Oversedation Ondansetron HCl (Zofran) 4 mg IVPUSH Q6H PRN PRN Reason: Nausea/Vomiting Last Admin: 08/07/19 11:10 Dose: 4 mg Pantoprazole Sodium (Protonix) 40 mg PO DAILY [facility] Last Admin: 08/08/19 09:18 Dose: 40 mg Fexofenadine Hcl 180 (Mg) 0 each PO DAILY [facility] Last Admin: 08/08/19 15:02 Dose: 1 each Levocetirizine Dihydrochloride [ Xyzal] 5 Mg 0 each PO DAILY [facility] Last Admin: 08/08/19 15:04 Dose: 1 each Propranolol HCl (Inderal La) 120 mg PO DAILY [facility] Last Admin: 08/08/19 09:19 Dose: 120 mg Senna (Senna) 8.6 mg PO BID PRN PRN Reason: Constipation Discontinued Medications Acetaminophen (Tylenol) 975 mg PO ONETIME [facility] Stop: 08/06/19 16:00 Acetaminophen (Tylenol) 975 mg PO ONETIME [facility] Stop: 08/06/19 14:00 Last Admin: 08/06/19 10:31 Dose: 975 mg Bupivacaine HCl (Sensorcaine-Mpf 0.25%) Confirm Administered Dose 30 ml .ROUTE .STK-MED ONE Stop: 08/06/19 10:23 Last Admin: 08/06/19 12:27 Dose: 30 ml Cefazolin Sodium (Ancef) Confirm Administered Dose 2 gm .ROUTE .STK-MED ONE Stop: 08/06/19 09:52 Last Admin: 08/06/19 12:23 Dose: 2 gm Cefazolin Sodium (Ancef) Confirm Administered Dose 2 gm .ROUTE .STK-MED ONE Stop: 08/06/19 10:22 Clonidine HCl (Duraclon) Confirm Administered Dose 1,000 mcg .ROUTE .STK-MED ONE Stop: 08/06/19 11:32 Morphine Sulfate 8 mg/Epinephrine HCl 0.3 mg/Cefuroxime Sodium 750 mg/Ketorolac Tromethamine 30 mg/Sodium Chloride 7.9 ml 0 mg .XX ONETIME ONE Stop: 08/06/19 10:01 Last Admin: 08/06/19 12:27 Dose: 788.3 mg Famotidine (Pepcid) 20 mg PO Q12H [facility] Fentanyl (Sublimaze) Confirm Administered Dose 100 mcg .ROUTE .STK-MED ONE Stop: 08/06/19 09:49 Glycopyrrolate () Confirm Administered Dose 1 mg .ROUTE .STK-MED ONE Stop: 08/06/19 12:06 Lactated Ringer's (Ringers, Lactated) 1,000 mls @ 125 mls/hr IV ASDIRECTED [facility] Stop: 08/06/19 23:00 Last Admin: 08/06/19 10:40 Dose: 125 mls/hr Cefazolin Sodium/Dextrose 2 gm (/ Premix) 50 mls @ 100 mls/hr IV Q8H [facility] Stop: 08/07/19 10:59 Last Admin: 08/07/19 09:44 Dose: 100 mls/hr Lidocaine HCl (Xylocaine-Mpf 1%) Confirm Administered Dose 4 mls @ as directed .ROUTE .STK-MED ONE Stop: 08/06/19 09:50 Vancomycin HCl 1 gm/Vancomycin HCl 500 mg/ Sodium Chloride 500 mls @ 250 mls/ hr IV ONETIME ONE Stop: 08/06/19 12:59 Last Admin: 08/06/19 11:05 Dose: 250 mls/hr Lactated Ringer's (Ringers, Lactated) Confirm Administered Dose 1,000 mls @ as directed .ROUTE .STK-MED ONE Stop: 08/06/19 12:54 Lactated Ringer's (Ringers, Lactated) 1,000 mls @ 999 mls/hr IV .BOLUS ONE Stop: 08/07/19 06:54 Last Admin: 08/07/19 06:02 Dose: 999 mls/hr Lactated Ringer's (Ringers, Lactated) 1,000 mls @ 200 mls/hr IV ASDIRECTED [facility] Stop: 08/07/19 10:59 Last Admin: 08/07/19 07:37 Dose: 200 mls/hr Iodine (Iodine 2% Mild Tincture) Confirm Administered Dose 30 ml .ROUTE .STK- MED ONE Stop: 08/06/19 10:23 Last Admin: 08/06/19 12:21 Dose: 18 ml Lidocaine HCl (Xylocaine-Mpf 1%) Confirm Administered Dose 5 ml .ROUTE .STK-MED ONE Stop: 08/06/19 11:32 Lidocaine/Sodium Bicarbonate (Buffered Lidocaine 1% In Ns 8.4%) 0.25 ml IDERM ONETIME PRN PRN Reason: Prior to IV Start Stop: 08/06/19 18:00 Last Admin: 08/06/19 10:39 Dose: 0.25 ml Midazolam HCl (Versed 1 Mg/Ml) Confirm Administered Dose 2 mg .ROUTE .STK-MED ONE Stop: 08/06/19 09:51 Miscellaneous Medication (Phenylephrine 1 Mg/10 Ml-Ns) Confirm Administered Dose 1 mg IV .STK-MED ONE Stop: 08/06/19 12:28 Miscellaneous Medication (Phenylephrine 1 Mg/10 Ml-Ns) Confirm Administered Dose 1 mg IV .STK-MED ONE Stop: 08/06/19 12:54 Naloxone HCl (Narcan) 0.4 mg IVPUSH Q3M [facility] Stop: 08/07/19 20:22 Last Admin: 08/07/19 21:01 Dose: 0.4 mg Oxycodone HCl (Oxycontin) 10 mg PO ONETIME [facility] Stop: 08/06/19 16:00 Oxycodone HCl (Oxycontin) 10 mg PO ONETIME [facility] Stop: 08/06/19 14:00 Last Admin: 08/06/19 10:31 Dose: 10 mg Oxycodone/Acetaminophen (Percocet 325-5 Mg) 1 - 2 tab PO Q4H PRN PRN Reason: Pain Last Admin: 08/06/19 22:28 Dose: 2 tab Fexofenadine Hcl 180 (Mg) 0 each PO DAILY [facility] Last Admin: 08/07/19 09:42 Dose: Not Given Levocetirizine Dihydrochloride [ Xyzal] 5 Mg 0 each PO DAILY [facility] Last Admin: 08/07/19 09:42 Dose: Not Given Pregabalin (Lyrica) 50 mg PO ONETIME [facility] Stop: 08/06/19 16:00 Pregabalin (Lyrica) 50 mg PO ONETIME [facility] Stop: 08/06/19 14:00 Last Admin: 08/06/19 10:31 Dose: 50 mg Propofol (Diprivan 20 Ml) Confirm Administered Dose 200 mg .ROUTE .STK-MED ONE Stop: 08/06/19 09:50 Sodium Chloride (Saline Flush) 10 ml FLUSH ASDIRECTED PRN PRN Reason: Keep Vein Open Stop: 08/06/19 18:00 Tranexamic Acid (Cyklokapron) Confirm Administered Dose 1,000 mg .ROUTE .STK- MED ONE Stop: 08/06/19 10:22 Last Admin: 08/06/19 12:28 Dose: 1,000 mg Vancomycin HCl (Vancomycin) Confirm Administered Dose 1 gm .ROUTE .STK-MED ONE Stop: 08/06/19 10:23 Last Admin: 08/06/19 12:28 Dose: 1 gm - Exam Wound/Incisions: Dressing Dry and Intact General: Alert, Cooperative, No Acute Distress Lungs: Normal Respiratory Effort Extremities: Other (NVS intact for BLE. Deborah's negative for BLE.) Sepsis Event Note - Evaluation Sepsis Screening Result: No Definite Risk - Focused Exam Vital Signs: Vital Signs Temp Pulse Resp BP Pulse Ox Pulse Ox 08/08/19 21:07 98.1 F 69 16 101/59 L 94 L 08/08/19 17:10 95 08/08/19 16:22 99.9 F 73 12 103/58 L 93 L 08/08/19 12:18 98.2 F 80 16 124/67 94 L Date Exam was Performed: 08/09/19 Time Exam was Performed: 12:07 - Problem List Review Problem List Initiated/Reviewed/Updated: Yes - My Orders Last 24 Hours: Active Orders 24 hr Category Date Time Status Evaluate for Home Oxygen [RT Evaluate for Home Oxygen] Care 08/08/19 08:19 Active [RC] Click to Edit 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 [CONS] Cons 08/08/19 09:45 Active Routine Consult to Respiratory Therapy [Respiratory Care Assess Cons 08/08/19 13:14 Active and Treatment] [CONS] Routine Medication Orders Hydrocodone Bitart/Acetaminophen ([place] 325-5 Mg) 1 - 2 tab PO Q6H PRN PRN Reason: Pain Last Admin: 08/08/19 15:04 Dose: 1 tab Admin: 08/08/19 06:33 Dose: 1 tab Admin: 08/07/19 22:10 Dose: 1 tab Admin: 08/07/19 09:52 Dose: 1 tab Amlodipine Besylate (Norvasc) 5 mg PO DAILY [facility] Last Admin: 08/08/19 09:18 Dose: 5 mg Admin: 08/07/19 09:40 Dose: 5 mg Aspirin (Ecotrin) 325 mg PO BID [facility] Last Admin: 03/11/20 21:05 Dose: 325 mg Admin: 08/08/19 09:16 Dose: 325 mg Admin: 08/07/19 21:07 Dose: 325 mg Admin: 08/07/19 09:37 Dose: 325 mg Bisacodyl (Dulcolax) 5 mg PO DAILY PRN PRN Reason: Constipation Last Admin: 08/08/19 21:05 Dose: 5 mg Docusate Sodium (Colace) 100 mg PO BID [facility] Last Admin: 08/08/19 21:05 Dose: 100 mg Admin: 08/08/19 09:16 Dose: 100 mg Admin: 08/07/19 21:08 Dose: 100 mg Admin: 08/07/19 09:38 Dose: 100 mg Admin: 08/06/19 21:50 Dose: 100 mg Duloxetine HCl (Cymbalta) 60 mg PO DAILY [facility] Last Admin: 08/08/19 09:16 Dose: 60 mg Admin: 08/07/19 09:36 Dose: 60 mg Ezetimibe (Zetia) 10 mg PO DAILY [facility] Last Admin: 08/08/19 09:20 Dose: 10 mg Admin: 08/07/19 09:40 Dose: 10 mg Folic Acid (Folic Acid) 1 mg PO DAILY [facility] Last Admin: 08/08/19 09:18 Dose: 1 mg Admin: 08/07/19 09:40 Dose: 1 mg Gemfibrozil (Lopid) 600 mg PO DAILY [facility] Last Admin: 08/08/19 09:19 Dose: 600 mg Admin: 08/07/19 09:37 Dose: 600 mg Losartan Potassium (Cozaar) 50 mg PO DAILY [facility] Last Admin: 08/08/19 09:17 Dose: 50 mg Admin: 08/07/19 09:38 Dose: 50 mg Morphine Sulfate (Morphine) 2 mg IVPUSH Q2H PRN PRN Reason: Breakthrough Pain Naloxone HCl (Narcan) 0.1 mg IVPUSH Q5M PRN PRN Reason: Oversedation Ondansetron HCl (Zofran) 4 mg IVPUSH Q6H PRN PRN Reason: Nausea/Vomiting Last Admin: 08/07/19 11:10 Dose: 4 mg Pantoprazole Sodium (Protonix) 40 mg PO DAILY [facility] Last Admin: 08/08/19 09:18 Dose: 40 mg Admin: 08/07/19 09:39 Dose: 40 mg Fexofenadine Hcl 180 (Mg) 0 each PO DAILY [facility] Last Admin: 08/08/19 15:02 Dose: 1 each Levocetirizine Dihydrochloride [ Xyzal] 5 Mg 0 each PO DAILY [facility] Last Admin: 08/08/19 15:04 Dose: 1 each Propranolol HCl (Inderal La) 120 mg PO DAILY [facility] Last Admin: 08/08/19 09:19 Dose: 120 mg Admin: 08/07/19 09:35 Dose: 120 mg Senna (Senna) 8.6 mg PO BID PRN PRN Reason: Constipation - Assessment Assessment (Free Text/Narrative):: POD#2 - s/p left [id number] - Plan Plan (Free Text/Narrative):: 1. Medical management per Hospitalist service. 2. 325mg ASA PO BID, mobility as tolerated, SCDs, TEDs. 3. The pt would like to return home. Suspect d/c to NH for continued monitoring and therapies. The pt will remain in Hospital > 96 hours for medical intervention, continued therapies and possible NH placement. The pt's case was discussed with Dr. Garza today.
[2019-08-09] MEDS: Propranolol 60 MG Cap.ER PO SCH (09:40)
[2019-08-09] MEDS: DULoxetine 30 MG Cap PO SCH (09:41)
[2019-08-09] MEDS: Losartan 25 MG Tab PO SCH (09:41)
[2019-08-09] MEDS: amLODIPine 5 MG Tab PO SCH (09:42)
[2019-08-09] MEDS: Aspirin 325 MG Tab.EC PO SCH ×2 (09:42→20:18)
[2019-08-09] MEDS: Pantoprazole 40 MG Tab.CR PO SCH (09:43)
[2019-08-09] MEDS: Gemfibrozil 600 MG Tab PO SCH (09:44)
[2019-08-09] MEDS: Folic Acid 1 MG Tab PO SCH (09:44)
[2019-08-09] MEDS: Docusate Sodium 100 MG Cap PO SCH ×2 (09:44→20:18)
[2019-08-09] MEDS: Ezetimibe 10 MG Tab PO SCH (09:44)
--- NOTE | 2019-08-09 11:28 | PCM.CONSN ---
- General Info Date of Service: 08/09/19 Admission Dx/Problem (Free Text): Admission Diagnosis/Problem Admission Diagnosis/Problem Osteoarthritis of hip Functional Status: Reports: Pain Controlled, Tolerating Diet, Ambulating, Urinating, Incentive Spirometry. Denies: New Symptoms - Review of Systems General: Reports: Weakness, Fatigue, Malaise. Denies: Fever, Chills HEENT: Reports: No Symptoms. Denies: Headaches, Sore Throat Pulmonary: Reports: No Symptoms. Denies: Shortness of Breath, Cough, Sputum, Wheezing Cardiovascular: Reports: Dyspnea on Exertion. Denies: Chest Pain Gastrointestinal: Reports: No Symptoms. Denies: Abdominal Pain, Constipation, Diarrhea, Nausea, Vomiting Genitourinary: Reports: No Symptoms. Denies: Pain Musculoskeletal: Reports: Leg Pain Skin: Reports: No Symptoms. Denies: Cyanosis Neurological: Reports: Difficulty Walking, Weakness, Gait Disturbance. Denies: Confusion Psychiatric: Reports: No Symptoms - Patient Data Vitals - Most Recent: Last Vital Signs Temp 98.1 F 08/09/19 09:37 Pulse 69 08/09/19 09:37 Resp 16 08/09/19 09:37 BP 153/77 H 08/09/19 09:42 Pulse Ox 98 08/09/19 09:37 Orthostatic Blood Pressure [ 110/78 Sitting] Orthostatic Blood Pressure [ 122/88 Standing] Orthostatic Blood Pressure [ 103/68 Supine] Weight - Most Recent: 211 lb 4.8 oz I&O - Last 24 Hours: Intake & Output 08/08/19 08/09/19 08/09/19 22:59 06:59 14:59 Intake Total 150 780 120 Output Total 400 700 Balance -250 80 120 Lab Results Last 24 Hours: Laboratory Results - last 24 hr 08/08/19 08/09/19 08/09/19 Range/Units 14:58 08:25 08:25 WBC 9.54 (3.98-10.04) K/mm3 RBC 3.42 L (3.98-5.22) M/mm3 Hgb 10.1 L (11.2-15.7) gm/dl Hct 31.6 L (34.1-44.9) % MCV 92.4 (79.4-94.8) fl MCH 29.5 (25.6-32.2) pg MCHC 32.0 L (32.2-35.5) g/dl RDW Std Deviation 39.3 (36.4-46.3) fL Plt Count 238 (182-369) K/mm3 MPV 11.7 (9.4-12.3) fl Neut % (Auto) 71.8 H (34.0-71.1) % Lymph % (Auto) 14.0 L (19.3-51.7) % [place] % (Auto) 7.4 (4.7-12.5) % Eos % (Auto) 5.5 (0.7-5.8) Baso % (Auto) 0.3 (0.1-1.2) % Neut # (Auto) 6.84 H (1.56-6.13) K/mm3 Lymph # (Auto) 1.34 (1.18-3.74) K/mm3 [place] # (Auto) 0.71 H (0.24-0.36) K/mm3 Eos # (Auto) 0.52 H (0.04-0.36) K/mm3 Baso # (Auto) 0.03 (0.01-0.08) K/mm3 Puncture Site Lt radial ABG pH 7.31 L (7.35-7.45) ABG pCO2 51.0 H (35.0-45.0) mmHg ABG pO2 73.0 L (80.0-100.0) mmHg ABG HCO3 25.0 (22.0-26.0) meq/L ABG O2 Saturation 94.2 L (96.0-97.0) % ABG Base Excess -1.0 (-2-2.0) [place] Test Positive A-a Gradient 92 mmHg O2 Delivery Device Bipap 12/6 Oxygen Flow Rate 3.0 FiO2 32.00 (21.00-100.00) % Sodium 138 (136-145) mEq/L Potassium 4.0 (3.5-5.1) mEq/L Chloride 103 (98-107) mEq/L Carbon Dioxide 26 (21-32) mEq/L Anion Gap 13.0 (5-15) BUN 22 H (7-18) mg/dL Creatinine 1.1 H (0.55-1.02) mg/dL Est Cr Clr Drug Dosing 41.05 mL/min Estimated GFR (MDRD) 50 (>60) mL/min BUN/Creatinine Ratio 20.0 H (14-18) Glucose 188 H (80-115) mg/dL Calcium 9.1 (8.5-10.1) mg/dL Magnesium 1.8 (1.8-2.4) mg/dl Total Bilirubin 0.6 (0.2-1.0) mg/dL AST 54 H (15-37) U/L ALT 27 (14-59) U/L Alkaline Phosphatase 115 (46-116) U/L Total Protein 7.2 (6.4-8.2) g/dl Albumin 2.6 L (3.4-5.0) g/dl Globulin 4.6 gm/dL Albumin/Globulin Ratio 0.6 L (1-2) Med Orders - Current: Current Medications Hydrocodone Bitart/Acetaminophen (Paia 325-5 Mg) 1 - 2 tab PO Q6H PRN PRN Reason: Pain Last Admin: 08/08/19 15:04 Dose: 1 tab Amlodipine Besylate (Norvasc) 5 mg PO DAILY [facility] Last Admin: 08/09/19 09:42 Dose: 5 mg Aspirin (Ecotrin) 325 mg PO BID [facility] Last Admin: 08/09/19 09:42 Dose: 325 mg Bisacodyl (Dulcolax) 5 mg PO DAILY PRN PRN Reason: Constipation Last Admin: 08/08/19 21:05 Dose: 5 mg Docusate Sodium (Colace) 100 mg PO BID [facility] Last Admin: 08/09/19 09:44 Dose: 100 mg Duloxetine HCl (Cymbalta) 60 mg PO DAILY [facility] Last Admin: 08/09/19 09:41 Dose: 60 mg Ezetimibe (Zetia) 10 mg PO DAILY [facility] Last Admin: 08/09/19 09:44 Dose: 10 mg Folic Acid (Folic Acid) 1 mg PO DAILY [facility] Last Admin: 08/09/19 09:44 Dose: 1 mg Gemfibrozil (Lopid) 600 mg PO DAILY [facility] Last Admin: 08/09/19 09:44 Dose: 600 mg Losartan Potassium (Cozaar) 50 mg PO DAILY [facility] Last Admin: 08/09/19 09:41 Dose: 50 mg Morphine Sulfate (Morphine) 2 mg IVPUSH Q2H PRN PRN Reason: Breakthrough Pain Naloxone HCl (Narcan) 0.1 mg IVPUSH Q5M PRN PRN Reason: Oversedation Ondansetron HCl (Zofran) 4 mg IVPUSH Q6H PRN PRN Reason: Nausea/Vomiting Last Admin: 08/07/19 11:10 Dose: 4 mg Pantoprazole Sodium (Protonix) 40 mg PO DAILY [facility] Last Admin: 08/09/19 09:43 Dose: 40 mg Fexofenadine Hcl 180 (Mg) 0 each PO DAILY [facility] Last Admin: 08/09/19 09:48 Dose: 1 each Levocetirizine Dihydrochloride [ Xyzal] 5 Mg 0 each PO DAILY [facility] Last Admin: 08/09/19 09:48 Dose: 1 each Propranolol HCl (Inderal La) 120 mg PO DAILY [facility] Last Admin: 08/09/19 09:40 Dose: 120 mg Senna (Senna) 8.6 mg PO BID PRN PRN Reason: Constipation Discontinued Medications Acetaminophen (Tylenol) 975 mg PO ONETIME [facility] Stop: 08/06/19 16:00 Acetaminophen (Tylenol) 975 mg PO ONETIME [facility] Stop: 08/06/19 14:00 Last Admin: 08/06/19 10:31 Dose: 975 mg Bupivacaine HCl (Sensorcaine-Mpf 0.25%) Confirm Administered Dose 30 ml .ROUTE .STK-MED ONE Stop: 08/06/19 10:23 Last Admin: 08/06/19 12:27 Dose: 30 ml Cefazolin Sodium (Ancef) Confirm Administered Dose 2 gm .ROUTE .STK-MED ONE Stop: 08/06/19 09:52 Last Admin: 08/06/19 12:23 Dose: 2 gm Cefazolin Sodium (Ancef) Confirm Administered Dose 2 gm .ROUTE .STK-MED ONE Stop: 08/06/19 10:22 Clonidine HCl (Duraclon) Confirm Administered Dose 1,000 mcg .ROUTE .STK-MED ONE Stop: 08/06/19 11:32 Morphine Sulfate 8 mg/Epinephrine HCl 0.3 mg/Cefuroxime Sodium 750 mg/Ketorolac Tromethamine 30 mg/Sodium Chloride 7.9 ml 0 mg .XX ONETIME ONE Stop: 08/06/19 10:01 Last Admin: 08/06/19 12:27 Dose: 788.3 mg Famotidine (Pepcid) 20 mg PO Q12H [facility] Fentanyl (Sublimaze) Confirm Administered Dose 100 mcg .ROUTE .STK-MED ONE Stop: 08/06/19 09:49 Glycopyrrolate () Confirm Administered Dose 1 mg .ROUTE .STK-MED ONE Stop: 08/06/19 12:06 Lactated Ringer's (Ringers, Lactated) 1,000 mls @ 125 mls/hr IV ASDIRECTED [facility] Stop: 08/06/19 23:00 Last Admin: 08/06/19 10:40 Dose: 125 mls/hr Cefazolin Sodium/Dextrose 2 gm (/ Premix) 50 mls @ 100 mls/hr IV Q8H [facility] Stop: 08/07/19 10:59 Last Admin: 08/07/19 09:44 Dose: 100 mls/hr Lidocaine HCl (Xylocaine-Mpf 1%) Confirm Administered Dose 4 mls @ as directed .ROUTE .STK-MED ONE Stop: 08/06/19 09:50 Vancomycin HCl 1 gm/Vancomycin HCl 500 mg/ Sodium Chloride 500 mls @ 250 mls/ hr IV ONETIME ONE Stop: 08/06/19 12:59 Last Admin: 08/06/19 11:05 Dose: 250 mls/hr Lactated Ringer's (Ringers, Lactated) Confirm Administered Dose 1,000 mls @ as directed .ROUTE .STK-MED ONE Stop: 08/06/19 12:54 Lactated Ringer's (Ringers, Lactated) 1,000 mls @ 999 mls/hr IV .BOLUS ONE Stop: 08/07/19 06:54 Last Admin: 08/07/19 06:02 Dose: 999 mls/hr Lactated Ringer's (Ringers, Lactated) 1,000 mls @ 200 mls/hr IV ASDIRECTED [facility] Stop: 08/07/19 10:59 Last Admin: 08/07/19 07:37 Dose: 200 mls/hr Iodine (Iodine 2% Mild Tincture) Confirm Administered Dose 30 ml .ROUTE .STK- MED ONE Stop: 08/06/19 10:23 Last Admin: 08/06/19 12:21 Dose: 18 ml Lidocaine HCl (Xylocaine-Mpf 1%) Confirm Administered Dose 5 ml .ROUTE .STK-MED ONE Stop: 08/06/19 11:32 Lidocaine/Sodium Bicarbonate (Buffered Lidocaine 1% In Ns 8.4%) 0.25 ml IDERM ONETIME PRN PRN Reason: Prior to IV Start Stop: 08/06/19 18:00 Last Admin: 08/06/19 10:39 Dose: 0.25 ml Midazolam HCl (Versed 1 Mg/Ml) Confirm Administered Dose 2 mg .ROUTE .STK-MED ONE Stop: 08/06/19 09:51 Miscellaneous Medication (Phenylephrine 1 Mg/10 Ml-Ns) Confirm Administered Dose 1 mg IV .STK-MED ONE Stop: 08/06/19 12:28 Miscellaneous Medication (Phenylephrine 1 Mg/10 Ml-Ns) Confirm Administered Dose 1 mg IV .STK-MED ONE Stop: 08/06/19 12:54 Naloxone HCl (Narcan) 0.4 mg IVPUSH Q3M [facility] Stop: 08/07/19 20:22 Last Admin: 08/07/19 21:01 Dose: 0.4 mg Oxycodone HCl (Oxycontin) 10 mg PO ONETIME [facility] Stop: 08/06/19 16:00 Oxycodone HCl (Oxycontin) 10 mg PO ONETIME [facility] Stop: 08/06/19 14:00 Last Admin: 08/06/19 10:31 Dose: 10 mg Oxycodone/Acetaminophen (Percocet 325-5 Mg) 1 - 2 tab PO Q4H PRN PRN Reason: Pain Last Admin: 08/06/19 22:28 Dose: 2 tab Fexofenadine Hcl 180 (Mg) 0 each PO DAILY [facility] Last Admin: 08/07/19 09:42 Dose: Not Given Levocetirizine Dihydrochloride [ Xyzal] 5 Mg 0 each PO DAILY [facility] Last Admin: 08/07/19 09:42 Dose: Not Given Pregabalin (Lyrica) 50 mg PO ONETIME [facility] Stop: 08/06/19 16:00 Pregabalin (Lyrica) 50 mg PO ONETIME [facility] Stop: 08/06/19 14:00 Last Admin: 08/06/19 10:31 Dose: 50 mg Propofol (Diprivan 20 Ml) Confirm Administered Dose 200 mg .ROUTE .STK-MED ONE Stop: 08/06/19 09:50 Sodium Chloride (Saline Flush) 10 ml FLUSH ASDIRECTED PRN PRN Reason: Keep Vein Open Stop: 08/06/19 18:00 Tranexamic Acid (Cyklokapron) Confirm Administered Dose 1,000 mg .ROUTE .STK- MED ONE Stop: 08/06/19 10:22 Last Admin: 08/06/19 12:28 Dose: 1,000 mg Vancomycin HCl (Vancomycin) Confirm Administered Dose 1 gm .ROUTE .STK-MED ONE Stop: 08/06/19 10:23 Last Admin: 08/06/19 12:28 Dose: 1 gm - Exam Quality Assessment: DVT Prophylaxis General: Alert (mostly - does continue to be mildly lethargic at times, less so today than in days past. ), Oriented, Cooperative HEENT: Pupils Equal, Pupils Reactive, Mucous Membr. Moist/[place] Neck: Supple, Trachea Midline Lungs: Clear to Auscultation, Normal Respiratory Effort Cardiovascular: Regular Rate, Regular Rhythm GI/Abdominal Exam: Normal Bowel Sounds, Soft, Non-Tender, No Distention (Female) Exam: Deferred Back Exam: Normal Inspection, Full Range of Motion Extremities: Normal Capillary Refill, Leg Pain, Limited Range of Motion, Other ( Bandage in place on left leg. Cooling pack in place. ) Peripheral Pulses: 2+: Radial (L), Radial (R), Dorsalis Pedis (L), Dorsalis Pedis (R) Skin: Warm, Dry, Intact Wound/Incisions: Dressing Dry and Intact Neurological: No New Focal Deficit Psy/Mental Status: Alert, Normal Affect, Normal Mood Sepsis Event Note - Evaluation Sepsis Screening Result: No Definite Risk - Focused Exam Vital Signs: Vital Signs Temp Pulse Resp BP Pulse Ox Pulse Ox 08/09/19 09:42 153/77 H 08/09/19 09:41 153/77 H 08/09/19 09:37 98.1 F 69 16 153/77 H 98 08/09/19 06:31 94 L 08/09/19 03:56 98.2 F 77 16 139/67 96 08/09/19 03:11 93 L 08/09/19 00:21 97.3 F 75 16 130/88 95 Date Exam was Performed: 08/09/19 Time Exam was Performed: 11:56 Consult PN Assessment/Plan POD#: 3 Procedures: Procedures AFTER CATARACT LASER SURGERY (08/17/16) ASSAY OF CREATININE (11/22/13) ASSAY OF MAGNESIUM (11/14/13) BLOOD CULTURE FOR BACTERIA (11/14/13) C-REACTIVE PROTEIN (11/14/13) CHEST X-RAY 2VW FRONTAL&LATL (11/14/13) COMPLETE CBC W/AUTO DIFF WBC (11/14/13) COMPREHEN METABOLIC PANEL (11/14/13) CT HEAD/BRAIN W/O DYE (11/14/13) CULTURE SCREEN ONLY (04/09/18) EMERGENCY DEPT VISIT (09/10/14) GAIT TRAINING THERAPY (11/14/13) HEPATITIS B SURFACE AG IA (09/10/14) HEPATITIS C AB TEST (09/10/14) MEASURE BLOOD OXYGEN LEVEL (11/14/13) MEASURE BLOOD OXYGEN LEVEL (11/14/13) MR ANGIOGRAPHY HEAD W/O DYE (11/14/13) MRI BRAIN STEM W/O & W/DYE (11/14/13) MRI NECK SPINE W/O DYE (11/22/13) PARATHYRD PLANAR W/SPECT&CT (11/18/14) POLYSOM 6/> YRS 4/> BEREKET (12/14/16) PT EVALUATION (11/14/13) ROUTINE VENIPUNCTURE (11/22/13) URINALYSIS AUTO W/SCOPE (11/14/13) URINE BACTERIA CULTURE (11/14/13) WEST NILE VIRUS AB IGM (11/14/13) (1) S/P total hip arthroplasty SNOMED Code(s): 109039423850, 395387478160 Code(s): Z96.649 - PRESENCE OF UNSPECIFIED ARTIFICIAL HIP JOINT Priority: High Current Visit: Yes Qualifiers: Laterality: left Qualified Code(s): Z96.642 - Presence of left artificial hip joint (2) Osteoarthritis SNOMED Code(s): 722881403 Code(s): M19.90 - UNSPECIFIED OSTEOARTHRITIS, UNSPECIFIED SITE Priority: High Current Visit: Yes Qualifiers: Osteoarthritis location: hip Osteoarthritis type: primary Laterality: left Qualified Code(s): M16.12 - Unilateral primary osteoarthritis, left hip (3) Positive result for methicillin resistant Staphylococcus aureus (MRSA) screening SNOMED Code(s): 433965619 Code(s): Z22.322 - CARRIER OR SUSPECTED CARRIER OF METHICILLIN RESIS STAPH Priority: Medium Current Visit: Yes (4) Former smoker SNOMED Code(s): 5317293 Code(s): Z87.891 - PERSONAL HISTORY OF NICOTINE DEPENDENCE Priority: Low Current Visit: No (5) Rheumatoid arthritis SNOMED Code(s): 72429222 Code(s): M06.9 - RHEUMATOID ARTHRITIS, UNSPECIFIED Priority: Low Current Visit: No Qualifiers: Rheumatoid arthritis location: unspecified site Rheumatoid factor presence : unspecified presence Qualified Code(s): M06.9 - Rheumatoid arthritis, unspecified (6) Gout SNOMED Code(s): 98770864 Code(s): M10.9 - GOUT, UNSPECIFIED Priority: Low Current Visit: No Qualifiers: Gout site: unspecified site Gout etiology: unspecified cause Chronicity: unspecified Qualified Code(s): M10.9 - Gout, unspecified (7) Insomnia SNOMED Code(s): 797162153 Code(s): G47.00 - INSOMNIA, UNSPECIFIED Priority: Low Current Visit: No Qualifiers: Insomnia type: unspecified Qualified Code(s): G47.00 - Insomnia, unspecified (8) GERD (gastroesophageal reflux disease) SNOMED Code(s): 650931482 Code(s): K21.9 - GASTRO-ESOPHAGEAL REFLUX DISEASE WITHOUT ESOPHAGITIS Priority: Low Current Visit: No Qualifiers: Esophagitis presence: esophagitis presence not specified Qualified Code(s) : K21.9 - Gastro-esophageal reflux disease without esophagitis (9) Depression SNOMED Code(s): 37846630 Code(s): F32.9 - MAJOR DEPRESSIVE DISORDER, SINGLE EPISODE, UNSPECIFIED Priority: Low Current Visit: No Qualifiers: Depression Type: other depression Qualified Code(s): F32.89 - Other specified depressive episodes (10) Osteoporosis SNOMED Code(s): 71500782 Code(s): M81.0 - AGE-RELATED OSTEOPOROSIS W/O CURRENT PATHOLOGICAL FRACTURE Priority: Low Current Visit: No Qualifiers: Osteoporosis type: unspecified Presence of current pathological fracture: unspecified Qualified Code(s): M81.0 - Age-related osteoporosis without current pathological fracture (11) TMJ (temporomandibular joint syndrome) SNOMED Code(s): 90101359 Code(s): M26.609 - UNSPECIFIED TMJ JOINT DISORDER, UNSPECIFIED SIDE Priority: Low Current Visit: No (12) HTN (hypertension) SNOMED Code(s): 92921898 Code(s): I10 - ESSENTIAL (PRIMARY) HYPERTENSION Priority: Medium Current Visit: No Qualifiers: Hypertension type: unspecified Qualified Code(s): I10 - Essential (primary ) hypertension (13) Anemia SNOMED Code(s): 176924355 Code(s): D64.9 - ANEMIA, UNSPECIFIED Priority: Low Current Visit: No Qualifiers: Anemia type: unspecified type Qualified Code(s): D64.9 - Anemia, unspecified (14) Headache SNOMED Code(s): 10100558 Code(s): R51 - HEADACHE Priority: Low Current Visit: No Qualifiers: Headache type: unspecified Headache chronicity pattern: unspecified pattern Intractability: not intractable Qualified Code(s): R51 - Headache (15) Intracranial vascular stenosis SNOMED Code(s): 33047705 Code(s): I67.9 - CEREBROVASCULAR DISEASE, UNSPECIFIED Priority: Low Current Visit: No (16) Vitamin D deficiency SNOMED Code(s): 44870030 Code(s): E55.9 - VITAMIN D DEFICIENCY, UNSPECIFIED Priority: Low Current Visit: No (17) Rash SNOMED Code(s): 647510068 Code(s): R21 - RASH AND OTHER NONSPECIFIC SKIN ERUPTION Priority: Low Current Visit: No (18) HLD (hyperlipidemia) SNOMED Code(s): 68920922 Code(s): E78.5 - HYPERLIPIDEMIA, UNSPECIFIED Priority: Low Current Visit : No Qualifiers: Hyperlipidemia type: unspecified Qualified Code(s): E78.5 - Hyperlipidemia , unspecified (19) Sleep apnea SNOMED Code(s): 56311265 Code(s): G47.30 - SLEEP APNEA, UNSPECIFIED Priority: Low Current Visit: No Qualifiers: Sleep apnea type: unspecified type Qualified Code(s): G47.30 - Sleep apnea , unspecified (20) Basal cell carcinoma (BCC) SNOMED Code(s): 559390515 Code(s): C44.91 - BASAL CELL CARCINOMA OF SKIN, UNSPECIFIED Priority: Low Current Visit: No Qualifiers: Basal cell carcinoma location: unspecified site Qualified Code(s): C44.91 - Basal cell carcinoma of skin, unspecified (21) Cervical radiculopathy SNOMED Code(s): 97481763 Code(s): M54.12 - RADICULOPATHY, CERVICAL REGION Priority: Low Current Visit: No (22) CKD (chronic kidney disease) stage 3, GFR 30-59 ml/min SNOMED Code(s): 514161458 Code(s): N18.3 - CHRONIC KIDNEY DISEASE, STAGE 3 (MODERATE) Priority: Medium Current Visit: Yes (23) Postoperative urinary retention SNOMED Code(s): 488296828 Code(s): N99.89 - OTH POSTPROCEDURAL COMPLICATIONS AND DISORDERS OF SYS; R33.8 - OTHER RETENTION OF URINE Priority: High Current Visit: Yes (24) Altered mental state SNOMED Code(s): 974276977 Code(s): R41.82 - ALTERED MENTAL STATUS, UNSPECIFIED Priority: High Current Visit: Yes Qualifiers: Altered mental status type: unspecified Qualified Code(s): R41.82 - Altered mental status, unspecified (25) Hypercapnemia SNOMED Code(s): 26691775 Code(s): R06.89 - OTHER ABNORMALITIES OF BREATHING Priority: High Current Visit: Yes (26) Acute hypercapnic respiratory failure SNOMED Code(s): 169179911 Code(s): J96.02 - ACUTE RESPIRATORY FAILURE WITH HYPERCAPNIA Priority: High Current Visit: Yes Problem List Initiated/Reviewed/Updated: Yes My Orders Last 24 Hours: My Active Orders 08/08/19 13:14 Consult to Respiratory Therapy [Respiratory Care Assess and Treatment] [CONS] Routine Plan: I/P: Acute: S/P left total hip arthroplasty - post-operative day 3 -DVT prophylaxis and pain management per primary care team -PT/OT -IS/RT -Monitor oxygen saturation -Titrate oxygen as needed -Home medications reviewed -Vital signs stable -Monitor labs -Pre-operative Hgb was 13.2; Now 10.7-->9.8-->10.1 -Pre-operative GFR was 38; Now 22-->35-->50 -Pre-operative creatinine was 1.37; Now 2.2-->1.5-->1.1 -Pre-operative BUN was 27; Now 28-->26-->22 Osteoarthritis of left hip -Pain management per primary care team Acute weakness -2/2 anesthesia -PT/OT -Caution with pain medications -Narcan given last night NOREEN, improved -Kidney function labs as above -Started on IV fluids last night -Improved urine output - monitor S/P Post-operative urinary retention -IV fluids given -Straight catheter per protocol -Monitor Hypercapnia with acute respiratory failure -A&Ox3, sleepy/lethargic at times but less today -Likely exacerbated by anesthesia -ABG shows metabolic acidosis -Underlying BETTINA - reportedly underwent one of the 2 stages of sleep study -BiPAP -O2 as needed -RT to monitor -IS when not on BiPAP Chronic: Positive MRSA Screen RA Gout Insomnia GERD Depression Osteoporosis TMJ HTN Anemia Headache Intracranial vascular stenosis Vitamin D deficiency Rash HLD Untreated Sleep Apnea CKD Cervical radiculopathy Basal cell carcinoma Plan: CM for discharge planning SW for possible SNF placement GI prophylaxis CLINICAL PROFESSOR cognitive 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 Her PCP is Dr. Dias. From a hospitalist standpoint Zamzam is doing ok. She continues to be sleepy at times but is more alert today at times. This continues to wax and wane. Kidney function has improved again. She has been working with PT/OT and they continue to recommend a SNF rehab saty. She remains on O2. BiPAP remains ordered and she should wear this at night or when resting. She wore it until around 0400 yesterday. and patient have been continuing to work on SNF applications. She is pending placement. Thank you for allowing us to participate in the care of this patient!! Will need outpatient sleep study after discharge.
--- NOTE | 2019-08-09 11:57 | PCM.OPNOTE ---
- General Post-Op/Procedure Note Date of Surgery/Procedure: 08/06/19 Operative Procedure(s): left total hip arthroplasty Pre Op Diagnosis: left hip osteoarthrosis Post-Op Diagnosis: Same Anesthesia Technique: Local, MAC, Spinal Primary Surgeon: Yuriy Garza Anesthesia Provider: Seth Bennett Cleaner: Cady Mar Cleaner: Marisa Evans EBL in mLs: 200 Complications: None Condition: Good Free Text/Narrative:: Intake & Output 08/08/19 08/09/19 08/09/19 22:59 06:59 14:59 Intake Total 150 780 120 Output Total 400 700 Balance -250 80 120 50 cup 4 stem 36+0
--- NOTE | 2019-08-09 12:10 | PCM.SURGPN ---
- General Info Date of Service: 08/09/19 POD#: 3 Functional Status: Reports: Pain Controlled, Tolerating Diet, Ambulating, Urinating, Incentive Spirometry, Other (The pt states she is progressing with therapies and would like to return home.) - Patient Data Vitals - Most Recent: Last Vital Signs Temp 98.1 F 08/09/19 09:37 Pulse 69 08/09/19 09:37 Resp 16 08/09/19 09:37 BP 153/77 H 08/09/19 09:42 Pulse Ox 98 08/09/19 09:37 Orthostatic Blood Pressure [ 110/78 Sitting] Orthostatic Blood Pressure [ 122/88 Standing] Orthostatic Blood Pressure [ 103/68 Supine] Weight - Most Recent: 213 lb 9.6 oz I&O - Last 24 Hours: Intake & Output 08/08/19 08/09/19 08/09/19 22:59 06:59 14:59 Intake Total 150 780 120 Output Total 400 700 Balance -250 80 120 Lab Results Last 24 Hrs: Laboratory Results - last 24 hr 08/08/19 08/09/19 08/09/19 Range/Units 14:58 08:25 08:25 WBC 9.54 (3.98-10.04) K/mm3 RBC 3.42 L (3.98-5.22) M/mm3 Hgb 10.1 L (11.2-15.7) gm/dl Hct 31.6 L (34.1-44.9) % MCV 92.4 (79.4-94.8) fl MCH 29.5 (25.6-32.2) pg MCHC 32.0 L (32.2-35.5) g/dl RDW Std Deviation 39.3 (36.4-46.3) fL Plt Count 238 (182-369) K/mm3 MPV 11.7 (9.4-12.3) fl Neut % (Auto) 71.8 H (34.0-71.1) % Lymph % (Auto) 14.0 L (19.3-51.7) % [place] % (Auto) 7.4 (4.7-12.5) % Eos % (Auto) 5.5 (0.7-5.8) Baso % (Auto) 0.3 (0.1-1.2) % Neut # (Auto) 6.84 H (1.56-6.13) K/mm3 Lymph # (Auto) 1.34 (1.18-3.74) K/mm3 [place] # (Auto) 0.71 H (0.24-0.36) K/mm3 Eos # (Auto) 0.52 H (0.04-0.36) K/mm3 Baso # (Auto) 0.03 (0.01-0.08) K/mm3 Puncture Site Lt radial ABG pH 7.31 L (7.35-7.45) ABG pCO2 51.0 H (35.0-45.0) mmHg ABG pO2 73.0 L (80.0-100.0) mmHg ABG HCO3 25.0 (22.0-26.0) meq/L ABG O2 Saturation 94.2 L (96.0-97.0) % ABG Base Excess -1.0 (-2-2.0) [place] Test Positive A-a Gradient 92 mmHg O2 Delivery Device Bipap 12/6 Oxygen Flow Rate 3.0 FiO2 32.00 (21.00-100.00) % Sodium 138 (136-145) mEq/L Potassium 4.0 (3.5-5.1) mEq/L Chloride 103 (98-107) mEq/L Carbon Dioxide 26 (21-32) mEq/L Anion Gap 13.0 (5-15) BUN 22 H (7-18) mg/dL Creatinine 1.1 H (0.55-1.02) mg/dL Est Cr Clr Drug Dosing 41.05 mL/min Estimated GFR (MDRD) 50 (>60) mL/min BUN/Creatinine Ratio 20.0 H (14-18) Glucose 188 H (80-115) mg/dL Calcium 9.1 (8.5-10.1) mg/dL Magnesium 1.8 (1.8-2.4) mg/dl Total Bilirubin 0.6 (0.2-1.0) mg/dL AST 54 H (15-37) U/L ALT 27 (14-59) U/L Alkaline Phosphatase 115 (46-116) U/L Total Protein 7.2 (6.4-8.2) g/dl Albumin 2.6 L (3.4-5.0) g/dl Globulin 4.6 gm/dL Albumin/Globulin Ratio 0.6 L (1-2) Med Orders - Current: Current Medications Hydrocodone Bitart/Acetaminophen ([place] 325-5 Mg) 1 - 2 tab PO Q6H PRN PRN Reason: Pain Last Admin: 08/08/19 15:04 Dose: 1 tab Amlodipine Besylate (Norvasc) 5 mg PO DAILY [facility] Last Admin: 08/09/19 09:42 Dose: 5 mg Aspirin (Ecotrin) 325 mg PO BID [facility] Last Admin: 08/09/19 09:42 Dose: 325 mg Bisacodyl (Dulcolax) 5 mg PO DAILY PRN PRN Reason: Constipation Last Admin: 08/08/19 21:05 Dose: 5 mg Docusate Sodium (Colace) 100 mg PO BID [facility] Last Admin: 08/09/19 09:44 Dose: 100 mg Duloxetine HCl (Cymbalta) 60 mg PO DAILY [facility] Last Admin: 08/09/19 09:41 Dose: 60 mg Ezetimibe (Zetia) 10 mg PO DAILY [facility] Last Admin: 08/09/19 09:44 Dose: 10 mg Folic Acid (Folic Acid) 1 mg PO DAILY [facility] Last Admin: 08/09/19 09:44 Dose: 1 mg Gemfibrozil (Lopid) 600 mg PO DAILY [facility] Last Admin: 08/09/19 09:44 Dose: 600 mg Losartan Potassium (Cozaar) 50 mg PO DAILY [facility] Last Admin: 08/09/19 09:41 Dose: 50 mg Morphine Sulfate (Morphine) 2 mg IVPUSH Q2H PRN PRN Reason: Breakthrough Pain Naloxone HCl (Narcan) 0.1 mg IVPUSH Q5M PRN PRN Reason: Oversedation Ondansetron HCl (Zofran) 4 mg IVPUSH Q6H PRN PRN Reason: Nausea/Vomiting Last Admin: 08/07/19 11:10 Dose: 4 mg Pantoprazole Sodium (Protonix) 40 mg PO DAILY [facility] Last Admin: 08/09/19 09:43 Dose: 40 mg Fexofenadine Hcl 180 (Mg) 0 each PO DAILY [facility] Last Admin: 08/09/19 09:48 Dose: 1 each Levocetirizine Dihydrochloride [ Xyzal] 5 Mg 0 each PO DAILY [facility] Last Admin: 03/12/20 09:48 Dose: 1 each Propranolol HCl (Inderal La) 120 mg PO DAILY [facility] Last Admin: 08/09/19 09:40 Dose: 120 mg Senna (Senna) 8.6 mg PO BID PRN PRN Reason: Constipation Discontinued Medications Acetaminophen (Tylenol) 975 mg PO ONETIME [facility] Stop: 08/06/19 16:00 Acetaminophen (Tylenol) 975 mg PO ONETIME [facility] Stop: 08/06/19 14:00 Last Admin: 08/06/19 10:31 Dose: 975 mg Bupivacaine HCl (Sensorcaine-Mpf 0.25%) Confirm Administered Dose 30 ml .ROUTE .STK-MED ONE Stop: 08/06/19 10:23 Last Admin: 08/06/19 12:27 Dose: 30 ml Cefazolin Sodium (Ancef) Confirm Administered Dose 2 gm .ROUTE .STK-MED ONE Stop: 08/06/19 09:52 Last Admin: 08/06/19 12:23 Dose: 2 gm Cefazolin Sodium (Ancef) Confirm Administered Dose 2 gm .ROUTE .STK-MED ONE Stop: 08/06/19 10:22 Clonidine HCl (Duraclon) Confirm Administered Dose 1,000 mcg .ROUTE .STK-MED ONE Stop: 08/06/19 11:32 Morphine Sulfate 8 mg/Epinephrine HCl 0.3 mg/Cefuroxime Sodium 750 mg/Ketorolac Tromethamine 30 mg/Sodium Chloride 7.9 ml 0 mg .XX ONETIME ONE Stop: 08/06/19 10:01 Last Admin: 08/06/19 12:27 Dose: 788.3 mg Famotidine (Pepcid) 20 mg PO Q12H [facility] Fentanyl (Sublimaze) Confirm Administered Dose 100 mcg .ROUTE .STK-MED ONE Stop: 08/06/19 09:49 Glycopyrrolate () Confirm Administered Dose 1 mg .ROUTE .STK-MED ONE Stop: 08/06/19 12:06 Lactated Ringer's (Ringers, Lactated) 1,000 mls @ 125 mls/hr IV ASDIRECTED [facility] Stop: 08/06/19 23:00 Last Admin: 08/06/19 10:40 Dose: 125 mls/hr Cefazolin Sodium/Dextrose 2 gm (/ Premix) 50 mls @ 100 mls/hr IV Q8H [facility] Stop: 08/07/19 10:59 Last Admin: 08/07/19 09:44 Dose: 100 mls/hr Lidocaine HCl (Xylocaine-Mpf 1%) Confirm Administered Dose 4 mls @ as directed .ROUTE .STK-MED ONE Stop: 08/06/19 09:50 Vancomycin HCl 1 gm/Vancomycin HCl 500 mg/ Sodium Chloride 500 mls @ 250 mls/ hr IV ONETIME ONE Stop: 08/06/19 12:59 Last Admin: 08/06/19 11:05 Dose: 250 mls/hr Lactated Ringer's (Ringers, Lactated) Confirm Administered Dose 1,000 mls @ as directed .ROUTE .STK-MED ONE Stop: 08/06/19 12:54 Lactated Ringer's (Ringers, Lactated) 1,000 mls @ 999 mls/hr IV .BOLUS ONE Stop: 08/07/19 06:54 Last Admin: 08/07/19 06:02 Dose: 999 mls/hr Lactated Ringer's (Ringers, Lactated) 1,000 mls @ 200 mls/hr IV ASDIRECTED [facility] Stop: 08/07/19 10:59 Last Admin: 08/07/19 07:37 Dose: 200 mls/hr Iodine (Iodine 2% Mild Tincture) Confirm Administered Dose 30 ml .ROUTE .STK- MED ONE Stop: 08/06/19 10:23 Last Admin: 08/06/19 12:21 Dose: 18 ml Lidocaine HCl (Xylocaine-Mpf 1%) Confirm Administered Dose 5 ml .ROUTE .STK-MED ONE Stop: 08/06/19 11:32 Lidocaine/Sodium Bicarbonate (Buffered Lidocaine 1% In Ns 8.4%) 0.25 ml IDERM ONETIME PRN PRN Reason: Prior to IV Start Stop: 08/06/19 18:00 Last Admin: 08/06/19 10:39 Dose: 0.25 ml Midazolam HCl (Versed 1 Mg/Ml) Confirm Administered Dose 2 mg .ROUTE .STK-MED ONE Stop: 08/06/19 09:51 Miscellaneous Medication (Phenylephrine 1 Mg/10 Ml-Ns) Confirm Administered Dose 1 mg IV .STK-MED ONE Stop: 08/06/19 12:28 Miscellaneous Medication (Phenylephrine 1 Mg/10 Ml-Ns) Confirm Administered Dose 1 mg IV .STK-MED ONE Stop: 08/06/19 12:54 Naloxone HCl (Narcan) 0.4 mg IVPUSH Q3M [facility] Stop: 08/07/19 20:22 Last Admin: 08/07/19 21:01 Dose: 0.4 mg Oxycodone HCl (Oxycontin) 10 mg PO ONETIME [facility] Stop: 08/06/19 16:00 Oxycodone HCl (Oxycontin) 10 mg PO ONETIME [facility] Stop: 08/06/19 14:00 Last Admin: 08/06/19 10:31 Dose: 10 mg Oxycodone/Acetaminophen (Percocet 325-5 Mg) 1 - 2 tab PO Q4H PRN PRN Reason: Pain Last Admin: 08/06/19 22:28 Dose: 2 tab Fexofenadine Hcl 180 (Mg) 0 each PO DAILY [facility] Last Admin: 08/07/19 09:42 Dose: Not Given Levocetirizine Dihydrochloride [ Xyzal] 5 Mg 0 each PO DAILY [facility] Last Admin: 08/07/19 09:42 Dose: Not Given Pregabalin (Lyrica) 50 mg PO ONETIME [facility] Stop: 08/06/19 16:00 Pregabalin (Lyrica) 50 mg PO ONETIME [facility] Stop: 08/06/19 14:00 Last Admin: 08/06/19 10:31 Dose: 50 mg Propofol (Diprivan 20 Ml) Confirm Administered Dose 200 mg .ROUTE .STK-MED ONE Stop: 08/06/19 09:50 Sodium Chloride (Saline Flush) 10 ml FLUSH ASDIRECTED PRN PRN Reason: Keep Vein Open Stop: 08/06/19 18:00 Tranexamic Acid (Cyklokapron) Confirm Administered Dose 1,000 mg .ROUTE .STK- MED ONE Stop: 08/06/19 10:22 Last Admin: 08/06/19 12:28 Dose: 1,000 mg Vancomycin HCl (Vancomycin) Confirm Administered Dose 1 gm .ROUTE .STK-MED ONE Stop: 08/06/19 10:23 Last Admin: 08/06/19 12:28 Dose: 1 gm - Exam Wound/Incisions: Dressing Dry and Intact General: Alert, Cooperative, No Acute Distress Lungs: Normal Respiratory Effort Extremities: Other (NVS intact for BLE. Deborah's negative.) Sepsis Event Note - Evaluation Sepsis Screening Result: No Definite Risk - Focused Exam Vital Signs: Vital Signs Temp Pulse Resp BP Pulse Ox Pulse Ox 08/09/19 09:42 153/77 H 08/09/19 09:41 153/77 H 08/09/19 09:37 98.1 F 69 16 153/77 H 98 08/09/19 06:31 94 L 08/09/19 03:56 98.2 F 77 16 139/67 96 08/09/19 03:11 93 L 08/09/19 00:21 97.3 F 75 16 130/88 95 Date Exam was Performed: 08/09/19 Time Exam was Performed: 12:08 - Problem List Review Problem List Initiated/Reviewed/Updated: Yes - My Orders Last 24 Hours: Active Orders 24 hr Category Date Time Status Consult to Respiratory Therapy [Respiratory Care Assess Cons 08/08/19 13:14 Active and Treatment] [CONS] Routine Consult to Speech Language Pathology [OFFICE ADMIN Evaluation Cons 08/09/19 10:59 Active and Treatment] [CONS] Routine COMPREHENSIVE METABOLIC PN,CMP [CHEM] AM Lab 08/10/19 05:11 Ordered MAGNESIUM [CHEM] AM Lab 08/10/19 05:11 Ordered PHOSPHORUS [CHEM] AM Lab 08/10/19 05:11 Ordered Medication Orders Hydrocodone Bitart/Acetaminophen ([place] 325-5 Mg) 1 - 2 tab PO Q6H PRN PRN Reason: Pain Last Admin: 08/08/19 15:04 Dose: 1 tab Admin: 08/08/19 06:33 Dose: 1 tab Admin: 08/07/19 22:10 Dose: 1 tab Admin: 08/07/19 09:52 Dose: 1 tab Amlodipine Besylate (Norvasc) 5 mg PO DAILY [facility] Last Admin: 08/09/19 09:42 Dose: 5 mg Admin: 08/08/19 09:18 Dose: 5 mg Admin: 08/07/19 09:40 Dose: 5 mg Aspirin (Ecotrin) 325 mg PO BID [facility] Last Admin: 08/09/19 09:42 Dose: 325 mg Admin: 08/08/19 21:05 Dose: 325 mg Admin: 08/08/19 09:16 Dose: 325 mg Admin: 08/07/19 21:07 Dose: 325 mg Admin: 08/07/19 09:37 Dose: 325 mg Bisacodyl (Dulcolax) 5 mg PO DAILY PRN PRN Reason: Constipation Last Admin: 08/08/19 21:05 Dose: 5 mg Docusate Sodium (Colace) 100 mg PO BID [facility] Last Admin: 08/09/19 09:44 Dose: 100 mg Admin: 08/08/19 21:05 Dose: 100 mg Admin: 08/08/19 09:16 Dose: 100 mg Admin: 08/07/19 21:08 Dose: 100 mg Admin: 08/07/19 09:38 Dose: 100 mg Admin: 08/06/19 21:50 Dose: 100 mg Duloxetine HCl (Cymbalta) 60 mg PO DAILY [facility] Last Admin: 08/09/19 09:41 Dose: 60 mg Admin: 08/08/19 09:16 Dose: 60 mg Admin: 08/07/19 09:36 Dose: 60 mg Ezetimibe (Zetia) 10 mg PO DAILY [facility] Last Admin: 08/09/19 09:44 Dose: 10 mg Admin: 08/08/19 09:20 Dose: 10 mg Admin: 08/07/19 09:40 Dose: 10 mg Folic Acid (Folic Acid) 1 mg PO DAILY [facility] Last Admin: 08/09/19 09:44 Dose: 1 mg Admin: 08/08/19 09:18 Dose: 1 mg Admin: 08/07/19 09:40 Dose: 1 mg Gemfibrozil (Lopid) 600 mg PO DAILY [facility] Last Admin: 08/09/19 09:44 Dose: 600 mg Admin: 08/08/19 09:19 Dose: 600 mg Admin: 08/07/19 09:37 Dose: 600 mg Losartan Potassium (Cozaar) 50 mg PO DAILY [facility] Last Admin: 08/09/19 09:41 Dose: 50 mg Admin: 08/08/19 09:17 Dose: 50 mg Admin: 08/07/19 09:38 Dose: 50 mg Morphine Sulfate (Morphine) 2 mg IVPUSH Q2H PRN PRN Reason: Breakthrough Pain Naloxone HCl (Narcan) 0.1 mg IVPUSH Q5M PRN PRN Reason: Oversedation Ondansetron HCl (Zofran) 4 mg IVPUSH Q6H PRN PRN Reason: Nausea/Vomiting Last Admin: 08/07/19 11:10 Dose: 4 mg Pantoprazole Sodium (Protonix) 40 mg PO DAILY [facility] Last Admin: 08/09/19 09:43 Dose: 40 mg Admin: 08/08/19 09:18 Dose: 40 mg Admin: 08/07/19 09:39 Dose: 40 mg Fexofenadine Hcl 180 (Mg) 0 each PO DAILY [facility] Last Admin: 08/09/19 09:48 Dose: 1 each Admin: 08/08/19 15:02 Dose: 1 each Levocetirizine Dihydrochloride [ Xyzal] 5 Mg 0 each PO DAILY [facility] Last Admin: 08/09/19 09:48 Dose: 1 each Admin: 08/08/19 15:04 Dose: 1 each Propranolol HCl (Inderal La) 120 mg PO DAILY [facility] Last Admin: 08/09/19 09:40 Dose: 120 mg Admin: 08/08/19 09:19 Dose: 120 mg Admin: 08/07/19 09:35 Dose: 120 mg Senna (Senna) 8.6 mg PO BID PRN PRN Reason: Constipation - Assessment Assessment (Free Text/Narrative):: POD#3 - left [id number] - Plan Plan (Free Text/Narrative):: 1. Medical management per Hospitalist service. 2. The pt has progressed with therapies, however, has not met inpt therapy goals. 3. 325mg ASA PO BID, TEDs, SCDs. 4. Suspect d/c to NH for continued rehab vs. home. The pt was evaluated by Dr. Kayla varghese.
--- NOTE | 2019-08-09 12:54 | OR ---
DATE OF OPERATION: 08/06/2019 SURGEON: Yuriy Garza MD OPERATION PERFORMED: Left total hip arthroplasty. PREOPERATIVE DIAGNOSIS: Left hip osteoarthrosis. POSTOPERATIVE DIAGNOSIS: Left hip osteoarthrosis. ANESTHESIA: Local MAC with spinal. ANESTHESIA PROVIDER: Ameena Hayden. ASSISTANTS: Cady Mar PA-C; and Marisa Evans LPN. ESTIMATED BLOOD LOSS: 200 mL. COMPLICATIONS: None. CONDITION: Stable. IMPLANTS: 1. Elk size 50 solid Tritanium II acetabular cup. 2. Elk size 4 Accolade II stem. 3. Elk size 36 +0 Biolox femoral head. DESCRIPTION OF PROCEDURE: The patient was identified in the preoperative holding area, where proper site was marked and identified by the surgeon. The patient was taken back to the operating theater, where after adequate anesthesia, the patient was placed in the right lateral decubitus position. Axillary roll was placed. Bony prominences were well padded. The patient's gluteal fold was parallel to the floor and pegs were placed and well padded. The left hip was then sterilely prepped and draped in the usual sterile fashion. OR-wide time-out was performed. The patient received 2 g IV Ancef and standard posterior incision was made. This was taken down the IT band and gluteal fascia, which was incised along the incisional length. Charnley retractor was then placed. Short external rotators were identified. Takedown of the short external rotators as well as capsulotomy was performed down to the level of the lesser trochanter. Hip was then dislocated. Neck cut was completed and found to be adequate. Attention was turned to the acetabulum. Anterior and posterior acetabular retractors were placed. Circumferential removal of the remaining labrum as well as pulvinar was done at this time. Starting with a 46 reamer, I was able to ream up to a 50, which was found to have adequate purchase. A 50 mm Tritanium II acetabular cup was then impacted in place and was found to be solidly fixed. The 36 mm flat liner was then impacted into place and attention was turned to the femur. Box chisel was used out laterally. Starter awl was placed down the canal. Starting with the 0 broach, I was able to broach up to a size 4, which was found to be rotationally and vertically stable. We trialed a 36 +0 head. It had adequate amish of leg lengths and stable throughout range of motion. Trial implants were then dislocated and removed. The size 4 Accolade II stem was impacted into place along with a 36 +0 femoral head and the hip was then relocated. A #5 Ethibond suture was used for closure of the short external rotators and capsule. 1 L dilute Betadine solution was then irrigated through the hip along with 3 L of pulse lavage irrigation with Ancef. Topical tranexamic acid and vancomycin powder were applied. A periarticular injection was completed and #2 barbed suture was used for closure of the IT band and gluteal fascia. 2-0 Vicryl was used subcutaneously and Prineo was used for the skin. The patient tolerated the procedure well and was sent to the PACU in stable condition. MMRIA /[id number]
[2019-08-09] MEDS: Acetaminophen/HYDROcodone 325-5 MG Tab PO PRN (20:45)
--- NOTE | 2019-08-10 07:27 | PCM.CONSN ---
- General Info Date of Service: 08/10/19 Admission Dx/Problem (Free Text): Admission Diagnosis/Problem Admission Diagnosis/Problem Osteoarthritis of hip Functional Status: Reports: Pain Controlled, Tolerating Diet, Ambulating, Urinating, Incentive Spirometry. Denies: New Symptoms - Review of Systems General: Reports: Weakness, Fatigue. Denies: Fever, Malaise, Chills HEENT: Reports: No Symptoms. Denies: Headaches, Sore Throat Pulmonary: Reports: No Symptoms. Denies: Shortness of Breath, Pleuritic Chest Pain, Cough, Sputum, Wheezing Cardiovascular: Reports: No Symptoms. Denies: Chest Pain, Palpitations, Dyspnea on Exertion Gastrointestinal: Reports: No Symptoms. Denies: Abdominal Pain, Constipation, Diarrhea, Nausea, Vomiting Genitourinary: Reports: No Symptoms. Denies: Pain Musculoskeletal: Reports: Leg Pain Skin: Reports: No Symptoms. Denies: Cyanosis Neurological: Reports: Difficulty Walking, Weakness, Gait Disturbance Psychiatric: Reports: No Symptoms - Patient Data Vitals - Most Recent: Last Vital Signs Temp 98.1 F 08/10/19 02:13 Pulse 70 08/10/19 02:13 Resp 14 08/10/19 02:13 BP 154/77 H 08/10/19 02:13 Pulse Ox 96 08/10/19 06:42 Orthostatic Blood Pressure [ 110/78 Sitting] Orthostatic Blood Pressure [ 122/88 Standing] Orthostatic Blood Pressure [ 103/68 Supine] Weight - Most Recent: 209 lb 3 oz I&O - Last 24 Hours: Intake & Output 08/09/19 08/10/19 08/10/19 22:59 06:59 14:59 Intake Total 1190 200 Output Total 1000 500 Balance 190 -300 Lab Results Last 24 Hours: Laboratory Results - last 24 hr 08/09/19 08/09/19 08/09/19 Range/Units 08:25 08:25 08:25 WBC 9.54 (3.98-10.04) K/mm3 RBC 3.42 L (3.98-5.22) M/mm3 Hgb 10.1 L (11.2-15.7) gm/dl Hct 31.6 L (34.1-44.9) % MCV 92.4 (79.4-94.8) fl MCH 29.5 (25.6-32.2) pg MCHC 32.0 L (32.2-35.5) g/dl RDW Std Deviation 39.3 (36.4-46.3) fL Plt Count 238 (182-369) K/mm3 MPV 11.7 (9.4-12.3) fl Neut % (Auto) 71.8 H (34.0-71.1) % Lymph % (Auto) 14.0 L (19.3-51.7) % Dolores % (Auto) 7.4 (4.7-12.5) % Eos % (Auto) 5.5 (0.7-5.8) Baso % (Auto) 0.3 (0.1-1.2) % Neut # (Auto) 6.84 H (1.56-6.13) K/mm3 Lymph # (Auto) 1.34 (1.18-3.74) K/mm3 Dolores # (Auto) 0.71 H (0.24-0.36) K/mm3 Eos # (Auto) 0.52 H (0.04-0.36) K/mm3 Baso # (Auto) 0.03 (0.01-0.08) K/mm3 Sodium 138 (136-145) mEq/L Potassium 4.0 (3.5-5.1) mEq/L Chloride 103 (98-107) mEq/L Carbon Dioxide 26 (21-32) mEq/L Anion Gap 13.0 (5-15) BUN 22 H (7-18) mg/dL Creatinine 1.1 H (0.55-1.02) mg/dL Est Cr Clr Drug Dosing 41.05 mL/min Estimated GFR (MDRD) 50 (>60) mL/min BUN/Creatinine Ratio 20.0 H (14-18) Glucose 188 H (80-115) mg/dL Hemoglobin A1c 6.00 (4.50-6.20) % Calcium 9.1 (8.5-10.1) mg/dL Phosphorus (2.6-4.7) mg/dL Magnesium 1.8 (1.8-2.4) mg/dl Total Bilirubin 0.6 (0.2-1.0) mg/dL AST 54 H (15-37) U/L ALT 27 (14-59) U/L Alkaline Phosphatase 115 (46-116) U/L Total Protein 7.2 (6.4-8.2) g/dl Albumin 2.6 L (3.4-5.0) g/dl Globulin 4.6 gm/dL Albumin/Globulin Ratio 0.6 L (1-2) 08/10/19 Range/Units 05:22 WBC (3.98-10.04) K/mm3 RBC (3.98-5.22) M/mm3 Hgb (11.2-15.7) gm/dl Hct (34.1-44.9) % MCV (79.4-94.8) fl MCH (25.6-32.2) pg MCHC (32.2-35.5) g/dl RDW Std Deviation (36.4-46.3) fL Plt Count (182-369) K/mm3 MPV (9.4-12.3) fl Neut % (Auto) (34.0-71.1) % Lymph % (Auto) (19.3-51.7) % Dolores % (Auto) (4.7-12.5) % Eos % (Auto) (0.7-5.8) Baso % (Auto) (0.1-1.2) % Neut # (Auto) (1.56-6.13) K/mm3 Lymph # (Auto) (1.18-3.74) K/mm3 Dolores # (Auto) (0.24-0.36) K/mm3 Eos # (Auto) (0.04-0.36) K/mm3 Baso # (Auto) (0.01-0.08) K/mm3 Sodium 144 (136-145) mEq/L Potassium 3.7 (3.5-5.1) mEq/L Chloride 107 (98-107) mEq/L Carbon Dioxide 28 (21-32) mEq/L Anion Gap 12.7 (5-15) BUN 21 H (7-18) mg/dL Creatinine 0.9 (0.55-1.02) mg/dL Est Cr Clr Drug Dosing 50.18 mL/min Estimated GFR (MDRD) > 60 (>60) mL/min BUN/Creatinine Ratio 23.3 H (14-18) Glucose 96 (80-115) mg/dL Hemoglobin A1c (4.50-6.20) % Calcium 9.3 (8.5-10.1) mg/dL Phosphorus 2.3 L (2.6-4.7) mg/dL Magnesium 1.9 (1.8-2.4) mg/dl Total Bilirubin 0.5 (0.2-1.0) mg/dL AST 45 H (15-37) U/L ALT 29 (14-59) U/L Alkaline Phosphatase 111 (46-116) U/L Total Protein 7.2 (6.4-8.2) g/dl Albumin 2.4 L (3.4-5.0) g/dl Globulin 4.8 gm/dL Albumin/Globulin Ratio 0.5 L (1-2) Med Orders - Current: Current Medications Hydrocodone Bitart/Acetaminophen (Ignacio 325-5 Mg) 1 - 2 tab PO Q6H PRN PRN Reason: Pain Last Admin: 08/09/19 20:45 Dose: 1 tab Amlodipine Besylate (Norvasc) 5 mg PO DAILY [facility] Last Admin: 08/09/19 09:42 Dose: 5 mg Aspirin (Ecotrin) 325 mg PO BID [facility] Last Admin: 08/09/19 20:18 Dose: 325 mg Bisacodyl (Dulcolax) 5 mg PO DAILY PRN PRN Reason: Constipation Last Admin: 08/08/19 21:05 Dose: 5 mg Docusate Sodium (Colace) 100 mg PO BID [facility] Last Admin: 08/09/19 20:18 Dose: 100 mg Duloxetine HCl (Cymbalta) 60 mg PO DAILY [facility] Last Admin: 08/09/19 09:41 Dose: 60 mg Ezetimibe (Zetia) 10 mg PO DAILY [facility] Last Admin: 08/09/19 09:44 Dose: 10 mg Folic Acid (Folic Acid) 1 mg PO DAILY [facility] Last Admin: 08/09/19 09:44 Dose: 1 mg Gemfibrozil (Lopid) 600 mg PO DAILY [facility] Last Admin: 08/09/19 09:44 Dose: 600 mg Losartan Potassium (Cozaar) 50 mg PO DAILY [facility] Last Admin: 08/09/19 09:41 Dose: 50 mg Morphine Sulfate (Morphine) 2 mg IVPUSH Q2H PRN PRN Reason: Breakthrough Pain Naloxone HCl (Narcan) 0.1 mg IVPUSH Q5M PRN PRN Reason: Oversedation Ondansetron HCl (Zofran) 4 mg IVPUSH Q6H PRN PRN Reason: Nausea/Vomiting Last Admin: 08/07/19 11:10 Dose: 4 mg Pantoprazole Sodium (Protonix) 40 mg PO DAILY [facility] Last Admin: 08/09/19 09:43 Dose: 40 mg Fexofenadine Hcl 180 (Mg) 0 each PO DAILY [facility] Last Admin: 08/09/19 09:48 Dose: 1 each Levocetirizine Dihydrochloride [ Xyzal] 5 Mg 0 each PO DAILY [facility] Last Admin: 08/09/19 09:48 Dose: 1 each Propranolol HCl (Inderal La) 120 mg PO DAILY [facility] Last Admin: 08/09/19 09:40 Dose: 120 mg Senna (Senna) 8.6 mg PO BID PRN PRN Reason: Constipation Discontinued Medications Acetaminophen (Tylenol) 975 mg PO ONETIME [facility] Stop: 08/06/19 16:00 Acetaminophen (Tylenol) 975 mg PO ONETIME [facility] Stop: 08/06/19 14:00 Last Admin: 08/06/19 10:31 Dose: 975 mg Bupivacaine HCl (Sensorcaine-Mpf 0.25%) Confirm Administered Dose 30 ml .ROUTE .STK-MED ONE Stop: 08/06/19 10:23 Last Admin: 08/06/19 12:27 Dose: 30 ml Cefazolin Sodium (Ancef) Confirm Administered Dose 2 gm .ROUTE .STK-MED ONE Stop: 08/06/19 09:52 Last Admin: 08/06/19 12:23 Dose: 2 gm Cefazolin Sodium (Ancef) Confirm Administered Dose 2 gm .ROUTE .STK-MED ONE Stop: 08/06/19 10:22 Clonidine HCl (Duraclon) Confirm Administered Dose 1,000 mcg .ROUTE .STK-MED ONE Stop: 08/06/19 11:32 Morphine Sulfate 8 mg/Epinephrine HCl 0.3 mg/Cefuroxime Sodium 750 mg/Ketorolac Tromethamine 30 mg/Sodium Chloride 7.9 ml 0 mg .XX ONETIME ONE Stop: 08/06/19 10:01 Last Admin: 08/06/19 12:27 Dose: 788.3 mg Famotidine (Pepcid) 20 mg PO Q12H [facility] Fentanyl (Sublimaze) Confirm Administered Dose 100 mcg .ROUTE .STK-MED ONE Stop: 08/06/19 09:49 Glycopyrrolate () Confirm Administered Dose 1 mg .ROUTE .STK-MED ONE Stop: 08/06/19 12:06 Lactated Ringer's (Ringers, Lactated) 1,000 mls @ 125 mls/hr IV ASDIRECTED [facility] Stop: 08/06/19 23:00 Last Admin: 08/06/19 10:40 Dose: 125 mls/hr Cefazolin Sodium/Dextrose 2 gm (/ Premix) 50 mls @ 100 mls/hr IV Q8H [facility] Stop: 08/07/19 10:59 Last Admin: 08/07/19 09:44 Dose: 100 mls/hr Lidocaine HCl (Xylocaine-Mpf 1%) Confirm Administered Dose 4 mls @ as directed .ROUTE .STK-MED ONE Stop: 08/06/19 09:50 Vancomycin HCl 1 gm/Vancomycin HCl 500 mg/ Sodium Chloride 500 mls @ 250 mls/ hr IV ONETIME ONE Stop: 08/06/19 12:59 Last Admin: 08/06/19 11:05 Dose: 250 mls/hr Lactated Ringer's (Ringers, Lactated) Confirm Administered Dose 1,000 mls @ as directed .ROUTE .STK-MED ONE Stop: 08/06/19 12:54 Lactated Ringer's (Ringers, Lactated) 1,000 mls @ 999 mls/hr IV .BOLUS ONE Stop: 08/07/19 06:54 Last Admin: 08/07/19 06:02 Dose: 999 mls/hr Lactated Ringer's (Ringers, Lactated) 1,000 mls @ 200 mls/hr IV ASDIRECTED [facility] Stop: 08/07/19 10:59 Last Admin: 08/07/19 07:37 Dose: 200 mls/hr Iodine (Iodine 2% Mild Tincture) Confirm Administered Dose 30 ml .ROUTE .STK- MED ONE Stop: 08/06/19 10:23 Last Admin: 08/06/19 12:21 Dose: 18 ml Lidocaine HCl (Xylocaine-Mpf 1%) Confirm Administered Dose 5 ml .ROUTE .STK-MED ONE Stop: 08/06/19 11:32 Lidocaine/Sodium Bicarbonate (Buffered Lidocaine 1% In Ns 8.4%) 0.25 ml IDERM ONETIME PRN PRN Reason: Prior to IV Start Stop: 08/06/19 18:00 Last Admin: 08/06/19 10:39 Dose: 0.25 ml Midazolam HCl (Versed 1 Mg/Ml) Confirm Administered Dose 2 mg .ROUTE .STK-MED ONE Stop: 08/06/19 09:51 Miscellaneous Medication (Phenylephrine 1 Mg/10 Ml-Ns) Confirm Administered Dose 1 mg IV .STK-MED ONE Stop: 08/06/19 12:28 Miscellaneous Medication (Phenylephrine 1 Mg/10 Ml-Ns) Confirm Administered Dose 1 mg IV .STK-MED ONE Stop: 08/06/19 12:54 Naloxone HCl (Narcan) 0.4 mg IVPUSH Q3M [facility] Stop: 08/07/19 20:22 Last Admin: 08/07/19 21:01 Dose: 0.4 mg Oxycodone HCl (Oxycontin) 10 mg PO ONETIME [facility] Stop: 08/06/19 16:00 Oxycodone HCl (Oxycontin) 10 mg PO ONETIME [facility] Stop: 08/06/19 14:00 Last Admin: 08/06/19 10:31 Dose: 10 mg Oxycodone/Acetaminophen (Percocet 325-5 Mg) 1 - 2 tab PO Q4H PRN PRN Reason: Pain Last Admin: 08/06/19 22:28 Dose: 2 tab Fexofenadine Hcl 180 (Mg) 0 each PO DAILY [facility] Last Admin: 08/07/19 09:42 Dose: Not Given Levocetirizine Dihydrochloride [ Xyzal] 5 Mg 0 each PO DAILY [facility] Last Admin: 08/07/19 09:42 Dose: Not Given Pregabalin (Lyrica) 50 mg PO ONETIME [facility] Stop: 08/06/19 16:00 Pregabalin (Lyrica) 50 mg PO ONETIME [facility] Stop: 08/06/19 14:00 Last Admin: 08/06/19 10:31 Dose: 50 mg Propofol (Diprivan 20 Ml) Confirm Administered Dose 200 mg .ROUTE .STK-MED ONE Stop: 08/06/19 09:50 Sodium Chloride (Saline Flush) 10 ml FLUSH ASDIRECTED PRN PRN Reason: Keep Vein Open Stop: 08/06/19 18:00 Tranexamic Acid (Cyklokapron) Confirm Administered Dose 1,000 mg .ROUTE .STK- MED ONE Stop: 08/06/19 10:22 Last Admin: 08/06/19 12:28 Dose: 1,000 mg Vancomycin HCl (Vancomycin) Confirm Administered Dose 1 gm .ROUTE .STK-MED ONE Stop: 08/06/19 10:23 Last Admin: 08/06/19 12:28 Dose: 1 gm - Exam Quality Assessment: Supplemental Oxygen (1L), DVT Prophylaxis General: Alert, Oriented, Cooperative, No Acute Distress HEENT: Pupils Equal, Pupils Reactive, Mucous Membr. Moist/[place] Neck: Supple, Trachea Midline Lungs: Normal Respiratory Effort, Decreased Breath Sounds Cardiovascular: Regular Rate, Regular Rhythm GI/Abdominal Exam: Normal Bowel Sounds, Soft, Non-Tender, No Distention (Female) Exam: Deferred Back Exam: Normal Inspection, Full Range of Motion Extremities: Normal Capillary Refill, Leg Pain, Limited Range of Motion, Other ( Bandage in place on left leg. Cooling pack in place. ) Peripheral Pulses: 2+: Radial (L), Radial (R), Dorsalis Pedis (L), Dorsalis Pedis (R) Skin: Warm, Dry, Intact Wound/Incisions: Dressing Dry and Intact Neurological: No New Focal Deficit Psy/Mental Status: Alert (at times - mental status has improved today however she still has moments of sleepiness. ) Sepsis Event Note - Evaluation Sepsis Screening Result: No Definite Risk - Focused Exam Vital Signs: Vital Signs Temp Pulse Resp BP Pulse Ox Pulse Ox Pulse Ox 08/10/19 06:42 96 08/10/19 03:24 94 L 08/10/19 02:40 94 L 08/10/19 02:13 98.1 F 70 14 154/77 H 08/09/19 23:15 98.1 F 75 16 148/64 H 95 08/09/19 20:00 94 L 08/09/19 19:26 97.3 F 75 18 155/70 H Date Exam was Performed: 08/10/19 Time Exam was Performed: 13:11 Consult PN Assessment/Plan POD#: 4 Procedures: Procedures AFTER CATARACT LASER SURGERY (08/17/16) ASSAY OF CREATININE (11/22/13) ASSAY OF MAGNESIUM (11/14/13) BLOOD CULTURE FOR BACTERIA (11/14/13) C-REACTIVE PROTEIN (11/14/13) CHEST X-RAY 2VW FRONTAL&LATL (11/14/13) COMPLETE CBC W/AUTO DIFF WBC (11/14/13) COMPREHEN METABOLIC PANEL (11/14/13) CT HEAD/BRAIN W/O DYE (11/14/13) CULTURE SCREEN ONLY (04/09/18) EMERGENCY DEPT VISIT (09/10/14) GAIT TRAINING THERAPY (11/14/13) HEPATITIS B SURFACE AG IA (09/10/14) HEPATITIS C AB TEST (09/10/14) MEASURE BLOOD OXYGEN LEVEL (11/14/13) MEASURE BLOOD OXYGEN LEVEL (11/14/13) MR ANGIOGRAPHY HEAD W/O DYE (11/14/13) MRI BRAIN STEM W/O & W/DYE (11/14/13) MRI NECK SPINE W/O DYE (11/22/13) PARATHYRD PLANAR W/SPECT&CT (11/18/14) POLYSOM 6/> YRS 4/> BEREKET (12/14/16) PT EVALUATION (11/14/13) ROUTINE VENIPUNCTURE (11/22/13) URINALYSIS AUTO W/SCOPE (11/14/13) URINE BACTERIA CULTURE (11/14/13) WEST NILE VIRUS AB IGM (11/14/13) (1) S/P total hip arthroplasty SNOMED Code(s): 338405247551, 345807395322 Code(s): Z96.649 - PRESENCE OF UNSPECIFIED ARTIFICIAL HIP JOINT Priority: High Current Visit: Yes Qualifiers: Laterality: left Qualified Code(s): Z96.642 - Presence of left artificial hip joint (2) Osteoarthritis SNOMED Code(s): 700024089 Code(s): M19.90 - UNSPECIFIED OSTEOARTHRITIS, UNSPECIFIED SITE Priority: High Current Visit: Yes Qualifiers: Osteoarthritis location: hip Osteoarthritis type: primary Laterality: left Qualified Code(s): M16.12 - Unilateral primary osteoarthritis, left hip (3) Positive result for methicillin resistant Staphylococcus aureus (MRSA) screening SNOMED Code(s): 258771879 Code(s): Z22.322 - CARRIER OR SUSPECTED CARRIER OF METHICILLIN RESIS STAPH Priority: Medium Current Visit: Yes (4) Former smoker SNOMED Code(s): 2287355 Code(s): Z87.891 - PERSONAL HISTORY OF NICOTINE DEPENDENCE Priority: Low Current Visit: No (5) Rheumatoid arthritis SNOMED Code(s): 80385519 Code(s): M06.9 - RHEUMATOID ARTHRITIS, UNSPECIFIED Priority: Low Current Visit: No Qualifiers: Rheumatoid arthritis location: unspecified site Rheumatoid factor presence : unspecified presence Qualified Code(s): M06.9 - Rheumatoid arthritis, unspecified (6) Gout SNOMED Code(s): 97517323 Code(s): M10.9 - GOUT, UNSPECIFIED Priority: Low Current Visit: No Qualifiers: Gout site: unspecified site Gout etiology: unspecified cause Chronicity: unspecified Qualified Code(s): M10.9 - Gout, unspecified (7) Insomnia SNOMED Code(s): 573893031 Code(s): G47.00 - INSOMNIA, UNSPECIFIED Priority: Low Current Visit: No Qualifiers: Insomnia type: unspecified Qualified Code(s): G47.00 - Insomnia, unspecified (8) GERD (gastroesophageal reflux disease) SNOMED Code(s): 493201987 Code(s): K21.9 - GASTRO-ESOPHAGEAL REFLUX DISEASE WITHOUT ESOPHAGITIS Priority: Low Current Visit: No Qualifiers: Esophagitis presence: esophagitis presence not specified Qualified Code(s) : K21.9 - Gastro-esophageal reflux disease without esophagitis (9) Depression SNOMED Code(s): 74642293 Code(s): F32.9 - MAJOR DEPRESSIVE DISORDER, SINGLE EPISODE, UNSPECIFIED Priority: Low Current Visit: No Qualifiers: Depression Type: other depression Qualified Code(s): F32.89 - Other specified depressive episodes (10) Osteoporosis SNOMED Code(s): 56889214 Code(s): M81.0 - AGE-RELATED OSTEOPOROSIS W/O CURRENT PATHOLOGICAL FRACTURE Priority: Low Current Visit: No Qualifiers: Osteoporosis type: unspecified Presence of current pathological fracture: unspecified Qualified Code(s): M81.0 - Age-related osteoporosis without current pathological fracture (11) TMJ (temporomandibular joint syndrome) SNOMED Code(s): 57693551 Code(s): M26.609 - UNSPECIFIED TMJ JOINT DISORDER, UNSPECIFIED SIDE Priority: Low Current Visit: No (12) HTN (hypertension) SNOMED Code(s): 23809357 Code(s): I10 - ESSENTIAL (PRIMARY) HYPERTENSION Priority: Medium Current Visit: No Qualifiers: Hypertension type: unspecified Qualified Code(s): I10 - Essential (primary ) hypertension (13) Anemia SNOMED Code(s): 602547480 Code(s): D64.9 - ANEMIA, UNSPECIFIED Priority: Low Current Visit: No Qualifiers: Anemia type: unspecified type Qualified Code(s): D64.9 - Anemia, unspecified (14) Headache SNOMED Code(s): 67243454 Code(s): R51 - HEADACHE Priority: Low Current Visit: No Qualifiers: Headache type: unspecified Headache chronicity pattern: unspecified pattern Intractability: not intractable Qualified Code(s): R51 - Headache (15) Intracranial vascular stenosis SNOMED Code(s): 45940876 Code(s): I67.9 - CEREBROVASCULAR DISEASE, UNSPECIFIED Priority: Low Current Visit: No (16) Vitamin D deficiency SNOMED Code(s): 77058180 Code(s): E55.9 - VITAMIN D DEFICIENCY, UNSPECIFIED Priority: Low Current Visit: No (17) Rash SNOMED Code(s): 915460044 Code(s): R21 - RASH AND OTHER NONSPECIFIC SKIN ERUPTION Priority: Low Current Visit: No (18) HLD (hyperlipidemia) SNOMED Code(s): 09665888 Code(s): E78.5 - HYPERLIPIDEMIA, UNSPECIFIED Priority: Low Current Visit : No Qualifiers: Hyperlipidemia type: unspecified Qualified Code(s): E78.5 - Hyperlipidemia , unspecified (19) Sleep apnea SNOMED Code(s): 56308667 Code(s): G47.30 - SLEEP APNEA, UNSPECIFIED Priority: Low Current Visit: No Qualifiers: Sleep apnea type: unspecified type Qualified Code(s): G47.30 - Sleep apnea , unspecified (20) Basal cell carcinoma (BCC) SNOMED Code(s): 708810942 Code(s): C44.91 - BASAL CELL CARCINOMA OF SKIN, UNSPECIFIED Priority: Low Current Visit: No Qualifiers: Basal cell carcinoma location: unspecified site Qualified Code(s): C44.91 - Basal cell carcinoma of skin, unspecified (21) Cervical radiculopathy SNOMED Code(s): 53784404 Code(s): M54.12 - RADICULOPATHY, CERVICAL REGION Priority: Low Current Visit: No (22) CKD (chronic kidney disease) stage 3, GFR 30-59 ml/min SNOMED Code(s): 513047929 Code(s): N18.3 - CHRONIC KIDNEY DISEASE, STAGE 3 (MODERATE) Priority: Medium Current Visit: Yes (23) Postoperative urinary retention SNOMED Code(s): 744626432 Code(s): N99.89 - OTH POSTPROCEDURAL COMPLICATIONS AND DISORDERS OF SYS; R33.8 - OTHER RETENTION OF URINE Priority: High Current Visit: Yes (24) Altered mental state SNOMED Code(s): 235174673 Code(s): R41.82 - ALTERED MENTAL STATUS, UNSPECIFIED Priority: High Current Visit: Yes Qualifiers: Altered mental status type: unspecified Qualified Code(s): R41.82 - Altered mental status, unspecified (25) Hypercapnemia SNOMED Code(s): 07101033 Code(s): R06.89 - OTHER ABNORMALITIES OF BREATHING Priority: High Current Visit: Yes (26) Acute hypercapnic respiratory failure SNOMED Code(s): 556006810 Code(s): J96.02 - ACUTE RESPIRATORY FAILURE WITH HYPERCAPNIA Priority: High Current Visit: Yes (27) Hypophosphatemia SNOMED Code(s): 9537304 Code(s): E83.39 - OTHER DISORDERS OF PHOSPHORUS METABOLISM Priority: High Current Visit: Yes Problem List Initiated/Reviewed/Updated: Yes My Orders Last 24 Hours: My Active Orders 08/10/19 09:00 Phosphorus #1 [Neutra-Phos] 250 mg PO BID Plan: I/P: Acute: S/P left total hip arthroplasty - post-operative day 4 -DVT prophylaxis and pain management per primary care team -PT/OT -IS/RT -Monitor oxygen saturation -Titrate oxygen as needed -Home medications reviewed -Vital signs stable -Monitor labs -Pre-operative Hgb was 13.2; Now 10.7-->9.8-->10.1 -Pre-operative GFR was 38; Now 22-->35-->50-->greater than 60 -Pre-operative creatinine was 1.37; Now 2.2-->1.5-->1.1-->0.9 -Pre-operative BUN was 27; Now 28-->26-->22-->21 Osteoarthritis of left hip -Pain management per primary care team Acute weakness -2/2 anesthesia -PT/OT -Caution with pain medications -Narcan given NOREEN, improved -Kidney function labs as above -Started on IV fluids last night -Improved urine output - monitor S/P Post-operative urinary retention -IV fluids given -Straight catheter per protocol -Monitor Hypercapnia with acute respiratory failure -A&Ox3, sleepy/lethargic at times but less today -Likely exacerbated by anesthesia -ABG shows metabolic acidosis -Underlying BETTINA - reportedly underwent one of the 2 stages of sleep study -BiPAP -O2 as needed -RT to monitor -IS when not on BiPAP Hypophosphatemia -Supplement Chronic: Positive MRSA Screen RA Gout Insomnia GERD Depression Osteoporosis TMJ HTN Anemia Headache Intracranial vascular stenosis Vitamin D deficiency Rash HLD Untreated Sleep Apnea CKD Cervical radiculopathy Basal cell carcinoma Plan: CM for discharge planning SW for possible SNF placement GI prophylaxis 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 Her PCP is Dr. Dias. From a hospitalist standpoint Zamzam is doing ok. She continues to be sleepy at times but is more alert today than other days. This continues to wax and wane. Kidney function has returned to normal range. She has been working with PT/OT and they continue to recommend a SNF rehab stay. BiPAP remains ordered and she continues wear this at night or when resting. She was accepted at [facility] but they delayed the discharge today and stated they would not accept the patient until Tuesday at the earliest. Thank you for allowing us to participate in the care of this patient!! Will need outpatient sleep study after discharge.
[2019-08-10] MEDS: Losartan 25 MG Tab PO SCH (08:32)
[2019-08-10] MEDS: Phosphorus #1 250 MG Tab PO SCH ×2 (08:33→21:00)
[2019-08-10] MEDS: Propranolol 60 MG Cap.ER PO SCH (08:33)
[2019-08-10] MEDS: Docusate Sodium 100 MG Cap PO SCH ×2 (08:34→21:00)
[2019-08-10] MEDS: Pantoprazole 40 MG Tab.CR PO SCH (08:34)
[2019-08-10] MEDS: DULoxetine 30 MG Cap PO SCH (08:34)
[2019-08-10] MEDS: Ezetimibe 10 MG Tab PO SCH (08:35)
[2019-08-10] MEDS: Gemfibrozil 600 MG Tab PO SCH (08:35)
[2019-08-10] MEDS: Acetaminophen/HYDROcodone 325-5 MG Tab PO PRN ×2 (08:36→21:01)
[2019-08-10] MEDS: amLODIPine 5 MG Tab PO SCH (08:36)
[2019-08-10] MEDS: Folic Acid 1 MG Tab PO SCH (08:36)
[2019-08-10] MEDS: Aspirin 325 MG Tab.EC PO SCH ×2 (08:36→21:00)
--- NOTE | 2019-08-10 14:02 | PCM.SURGPN ---
- General Info Date of Service: 08/10/19 POD#: 4 Functional Status: Reports: Pain Controlled, Tolerating Diet, Ambulating, Urinating, Incentive Spirometry, Other (The pt continues to require O2 per NC durign the day and bi-pap at HS.) - Patient Data Vitals - Most Recent: Last Vital Signs Temp 97.9 F 08/10/19 11:49 Pulse 76 08/10/19 11:49 Resp 16 08/10/19 11:49 BP 145/77 H 08/10/19 11:49 Pulse Ox 94 L 08/10/19 11:49 Orthostatic Blood Pressure [ 110/78 Sitting] Orthostatic Blood Pressure [ 122/88 Standing] Orthostatic Blood Pressure [ 103/68 Supine] Weight - Most Recent: 209 lb 3 oz I&O - Last 24 Hours: Intake & Output 08/09/19 08/10/19 08/10/19 22:59 06:59 14:59 Intake Total 1190 200 480 Output Total 1000 500 Balance 190 -300 480 Lab Results Last 24 Hrs: Laboratory Results - last 24 hr 08/09/19 08/10/19 Range/Units 08:25 05:22 Sodium 144 (136-145) mEq/L Potassium 3.7 (3.5-5.1) mEq/L Chloride 107 (98-107) mEq/L Carbon Dioxide 28 (21-32) mEq/L Anion Gap 12.7 (5-15) BUN 21 H (7-18) mg/dL Creatinine 0.9 (0.55-1.02) mg/dL Est Cr Clr Drug Dosing 50.18 mL/min Estimated GFR (MDRD) > 60 (>60) mL/min BUN/Creatinine Ratio 23.3 H (14-18) Glucose 96 (80-115) mg/dL Hemoglobin A1c 6.00 (4.50-6.20) % Calcium 9.3 (8.5-10.1) mg/dL Phosphorus 2.3 L (2.6-4.7) mg/dL Magnesium 1.9 (1.8-2.4) mg/dl Total Bilirubin 0.5 (0.2-1.0) mg/dL AST 45 H (15-37) U/L ALT 29 (14-59) U/L Alkaline Phosphatase 111 (46-116) U/L Total Protein 7.2 (6.4-8.2) g/dl Albumin 2.4 L (3.4-5.0) g/dl Globulin 4.8 gm/dL Albumin/Globulin Ratio 0.5 L (1-2) Med Orders - Current: Current Medications Hydrocodone Bitart/Acetaminophen ([place] 325-5 Mg) 1 - 2 tab PO Q6H PRN PRN Reason: Pain Last Admin: 08/10/19 08:36 Dose: 1 tab Amlodipine Besylate (Norvasc) 5 mg PO DAILY [facility] Last Admin: 08/10/19 08:36 Dose: 5 mg Aspirin (Ecotrin) 325 mg PO BID [facility] Last Admin: 08/10/19 08:36 Dose: 325 mg Bisacodyl (Dulcolax) 5 mg PO DAILY PRN PRN Reason: Constipation Last Admin: 08/08/19 21:05 Dose: 5 mg Docusate Sodium (Colace) 100 mg PO BID [facility] Last Admin: 08/10/19 08:34 Dose: 100 mg Duloxetine HCl (Cymbalta) 60 mg PO DAILY [facility] Last Admin: 08/10/19 08:34 Dose: 60 mg Ezetimibe (Zetia) 10 mg PO DAILY [facility] Last Admin: 08/10/19 08:35 Dose: 10 mg Folic Acid (Folic Acid) 1 mg PO DAILY [facility] Last Admin: 08/10/19 08:36 Dose: 1 mg Gemfibrozil (Lopid) 600 mg PO DAILY [facility] Last Admin: 08/10/19 08:35 Dose: 600 mg Losartan Potassium (Cozaar) 50 mg PO DAILY [facility] Last Admin: 08/10/19 08:32 Dose: 50 mg Morphine Sulfate (Morphine) 2 mg IVPUSH Q2H PRN PRN Reason: Breakthrough Pain Naloxone HCl (Narcan) 0.1 mg IVPUSH Q5M PRN PRN Reason: Oversedation Ondansetron HCl (Zofran) 4 mg IVPUSH Q6H PRN PRN Reason: Nausea/Vomiting Last Admin: 08/07/19 11:10 Dose: 4 mg Pantoprazole Sodium (Protonix) 40 mg PO DAILY [facility] Last Admin: 08/10/19 08:34 Dose: 40 mg Fexofenadine Hcl 180 (Mg) 0 each PO DAILY [facility] Last Admin: 08/10/19 08:37 Dose: 1 each Levocetirizine Dihydrochloride [ Xyzal] 5 Mg 0 each PO DAILY [facility] Last Admin: 08/10/19 08:37 Dose: 1 each Propranolol HCl (Inderal La) 120 mg PO DAILY [facility] Last Admin: 08/10/19 08:33 Dose: 120 mg Senna (Senna) 8.6 mg PO BID PRN PRN Reason: Constipation Sodium Phosphate (Neutra-Phos) 250 mg PO BID [facility] Stop: 08/10/19 21:01 Last Admin: 08/10/19 08:33 Dose: 250 mg Discontinued Medications Acetaminophen (Tylenol) 975 mg PO ONETIME [facility] Stop: 08/06/19 16:00 Acetaminophen (Tylenol) 975 mg PO ONETIME [facility] Stop: 08/06/19 14:00 Last Admin: 08/06/19 10:31 Dose: 975 mg Bupivacaine HCl (Sensorcaine-Mpf 0.25%) Confirm Administered Dose 30 ml .ROUTE .STK-MED ONE Stop: 08/06/19 10:23 Last Admin: 08/06/19 12:27 Dose: 30 ml Cefazolin Sodium (Ancef) Confirm Administered Dose 2 gm .ROUTE .STK-MED ONE Stop: 08/06/19 09:52 Last Admin: 08/06/19 12:23 Dose: 2 gm Cefazolin Sodium (Ancef) Confirm Administered Dose 2 gm .ROUTE .STK-MED ONE Stop: 08/06/19 10:22 Clonidine HCl (Duraclon) Confirm Administered Dose 1,000 mcg .ROUTE .STK-MED ONE Stop: 08/06/19 11:32 Morphine Sulfate 8 mg/Epinephrine HCl 0.3 mg/Cefuroxime Sodium 750 mg/Ketorolac Tromethamine 30 mg/Sodium Chloride 7.9 ml 0 mg .XX ONETIME ONE Stop: 08/06/19 10:01 Last Admin: 08/06/19 12:27 Dose: 788.3 mg Famotidine (Pepcid) 20 mg PO Q12H [facility] Fentanyl (Sublimaze) Confirm Administered Dose 100 mcg .ROUTE .STK-MED ONE Stop: 08/06/19 09:49 Glycopyrrolate () Confirm Administered Dose 1 mg .ROUTE .STK-MED ONE Stop: 08/06/19 12:06 Lactated Ringer's (Ringers, Lactated) 1,000 mls @ 125 mls/hr IV ASDIRECTED [facility] Stop: 08/06/19 23:00 Last Admin: 08/06/19 10:40 Dose: 125 mls/hr Cefazolin Sodium/Dextrose 2 gm (/ Premix) 50 mls @ 100 mls/hr IV Q8H [facility] Stop: 08/07/19 10:59 Last Admin: 08/07/19 09:44 Dose: 100 mls/hr Lidocaine HCl (Xylocaine-Mpf 1%) Confirm Administered Dose 4 mls @ as directed .ROUTE .STK-MED ONE Stop: 08/06/19 09:50 Vancomycin HCl 1 gm/Vancomycin HCl 500 mg/ Sodium Chloride 500 mls @ 250 mls/ hr IV ONETIME ONE Stop: 08/06/19 12:59 Last Admin: 08/06/19 11:05 Dose: 250 mls/hr Lactated Ringer's (Ringers, Lactated) Confirm Administered Dose 1,000 mls @ as directed .ROUTE .STK-MED ONE Stop: 08/06/19 12:54 Lactated Ringer's (Ringers, Lactated) 1,000 mls @ 999 mls/hr IV .BOLUS ONE Stop: 08/07/19 06:54 Last Admin: 08/07/19 06:02 Dose: 999 mls/hr Lactated Ringer's (Ringers, Lactated) 1,000 mls @ 200 mls/hr IV ASDIRECTED [facility] Stop: 08/07/19 10:59 Last Admin: 08/07/19 07:37 Dose: 200 mls/hr Iodine (Iodine 2% Mild Tincture) Confirm Administered Dose 30 ml .ROUTE .STK- MED ONE Stop: 08/06/19 10:23 Last Admin: 08/06/19 12:21 Dose: 18 ml Lidocaine HCl (Xylocaine-Mpf 1%) Confirm Administered Dose 5 ml .ROUTE .STK-MED ONE Stop: 08/06/19 11:32 Lidocaine/Sodium Bicarbonate (Buffered Lidocaine 1% In Ns 8.4%) 0.25 ml IDERM ONETIME PRN PRN Reason: Prior to IV Start Stop: 08/06/19 18:00 Last Admin: 08/06/19 10:39 Dose: 0.25 ml Midazolam HCl (Versed 1 Mg/Ml) Confirm Administered Dose 2 mg .ROUTE .STK-MED ONE Stop: 08/06/19 09:51 Miscellaneous Medication (Phenylephrine 1 Mg/10 Ml-Ns) Confirm Administered Dose 1 mg IV .STK-MED ONE Stop: 08/06/19 12:28 Miscellaneous Medication (Phenylephrine 1 Mg/10 Ml-Ns) Confirm Administered Dose 1 mg IV .STK-MED ONE Stop: 08/06/19 12:54 Naloxone HCl (Narcan) 0.4 mg IVPUSH Q3M [facility] Stop: 08/07/19 20:22 Last Admin: 08/07/19 21:01 Dose: 0.4 mg Oxycodone HCl (Oxycontin) 10 mg PO ONETIME [facility] Stop: 08/06/19 16:00 Oxycodone HCl (Oxycontin) 10 mg PO ONETIME [facility] Stop: 08/06/19 14:00 Last Admin: 08/06/19 10:31 Dose: 10 mg Oxycodone/Acetaminophen (Percocet 325-5 Mg) 1 - 2 tab PO Q4H PRN PRN Reason: Pain Last Admin: 08/06/19 22:28 Dose: 2 tab Fexofenadine Hcl 180 (Mg) 0 each PO DAILY [facility] Last Admin: 08/07/19 09:42 Dose: Not Given Levocetirizine Dihydrochloride [ Xyzal] 5 Mg 0 each PO DAILY [facility] Last Admin: 08/07/19 09:42 Dose: Not Given Pregabalin (Lyrica) 50 mg PO ONETIME [facility] Stop: 08/06/19 16:00 Pregabalin (Lyrica) 50 mg PO ONETIME [facility] Stop: 08/06/19 14:00 Last Admin: 08/06/19 10:31 Dose: 50 mg Propofol (Diprivan 20 Ml) Confirm Administered Dose 200 mg .ROUTE .STK-MED ONE Stop: 08/06/19 09:50 Sodium Chloride (Saline Flush) 10 ml FLUSH ASDIRECTED PRN PRN Reason: Keep Vein Open Stop: 08/06/19 18:00 Tranexamic Acid (Cyklokapron) Confirm Administered Dose 1,000 mg .ROUTE .STK- MED ONE Stop: 08/06/19 10:22 Last Admin: 08/06/19 12:28 Dose: 1,000 mg Vancomycin HCl (Vancomycin) Confirm Administered Dose 1 gm .ROUTE .STK-MED ONE Stop: 08/06/19 10:23 Last Admin: 08/06/19 12:28 Dose: 1 gm - Exam Wound/Incisions: Dressing Dry and Intact Quality Assessment: Supplemental Oxygen General: Alert, Oriented, No Acute Distress Lungs: Normal Respiratory Effort Extremities: Other (NVS intact for BLE. Deborah's negative.) Sepsis Event Note - Evaluation Sepsis Screening Result: No Definite Risk - Focused Exam Vital Signs: Vital Signs Temp Pulse Resp BP Pulse Ox Pulse Ox Pulse Ox 08/10/19 11:49 97.9 F 76 16 145/77 H 94 L 08/10/19 08:36 141/78 H 08/10/19 08:32 141/78 H 08/10/19 08:31 97.9 F 81 18 141/78 H 99 08/10/19 06:42 96 08/10/19 03:24 94 L 08/10/19 02:40 94 L 08/10/19 02:13 98.1 F 70 14 154/77 H Date Exam was Performed: 08/10/19 Time Exam was Performed: 13:56 - Problem List Review Problem List Initiated/Reviewed/Updated: Yes - My Orders Last 24 Hours: Active Orders 24 hr Category Date Time Status Communication Order [RC] ASDIRECTED Care 08/10/19 10:04 Active Ready for Discharge [RC] PER UNIT ROUTINE Care 08/10/19 10:03 Inactive Phosphorus #1 [Neutra-Phos] Med 08/10/19 09:00 Active 250 mg PO BID Medication Orders Hydrocodone Bitart/Acetaminophen ([place] 325-5 Mg) 1 - 2 tab PO Q6H PRN PRN Reason: Pain Last Admin: 08/10/19 08:36 Dose: 1 tab Admin: 08/09/19 20:45 Dose: 1 tab Admin: 08/08/19 15:04 Dose: 1 tab Admin: 08/08/19 06:33 Dose: 1 tab Admin: 08/07/19 22:10 Dose: 1 tab Admin: 08/07/19 09:52 Dose: 1 tab Amlodipine Besylate (Norvasc) 5 mg PO DAILY [facility] Last Admin: 08/10/19 08:36 Dose: 5 mg Admin: 08/09/19 09:42 Dose: 5 mg Admin: 08/08/19 09:18 Dose: 5 mg Admin: 08/07/19 09:40 Dose: 5 mg Aspirin (Ecotrin) 325 mg PO BID [facility] Last Admin: 08/10/19 08:36 Dose: 325 mg Admin: 08/09/19 20:18 Dose: 325 mg Admin: 08/09/19 09:42 Dose: 325 mg Admin: 08/08/19 21:05 Dose: 325 mg Admin: 08/08/19 09:16 Dose: 325 mg Admin: 08/07/19 21:07 Dose: 325 mg Admin: 08/07/19 09:37 Dose: 325 mg Bisacodyl (Dulcolax) 5 mg PO DAILY PRN PRN Reason: Constipation Last Admin: 08/08/19 21:05 Dose: 5 mg Docusate Sodium (Colace) 100 mg PO BID [facility] Last Admin: 08/10/19 08:34 Dose: 100 mg Admin: 08/09/19 20:18 Dose: 100 mg Admin: 08/09/19 09:44 Dose: 100 mg Admin: 08/08/19 21:05 Dose: 100 mg Admin: 08/08/19 09:16 Dose: 100 mg Admin: 08/07/19 21:08 Dose: 100 mg Admin: 08/07/19 09:38 Dose: 100 mg Admin: 08/06/19 21:50 Dose: 100 mg Duloxetine HCl (Cymbalta) 60 mg PO DAILY [facility] Last Admin: 08/10/19 08:34 Dose: 60 mg Admin: 08/09/19 09:41 Dose: 60 mg Admin: 08/08/19 09:16 Dose: 60 mg Admin: 08/07/19 09:36 Dose: 60 mg Ezetimibe (Zetia) 10 mg PO DAILY [facility] Last Admin: 08/10/19 08:35 Dose: 10 mg Admin: 08/09/19 09:44 Dose: 10 mg Admin: 08/08/19 09:20 Dose: 10 mg Admin: 08/07/19 09:40 Dose: 10 mg Folic Acid (Folic Acid) 1 mg PO DAILY [facility] Last Admin: 08/10/19 08:36 Dose: 1 mg Admin: 08/09/19 09:44 Dose: 1 mg Admin: 08/08/19 09:18 Dose: 1 mg Admin: 08/07/19 09:40 Dose: 1 mg Gemfibrozil (Lopid) 600 mg PO DAILY [facility] Last Admin: 08/10/19 08:35 Dose: 600 mg Admin: 08/09/19 09:44 Dose: 600 mg Admin: 08/08/19 09:19 Dose: 600 mg Admin: 08/07/19 09:37 Dose: 600 mg Losartan Potassium (Cozaar) 50 mg PO DAILY [facility] Last Admin: 08/10/19 08:32 Dose: 50 mg Admin: 08/09/19 09:41 Dose: 50 mg Admin: 08/08/19 09:17 Dose: 50 mg Admin: 08/07/19 09:38 Dose: 50 mg Morphine Sulfate (Morphine) 2 mg IVPUSH Q2H PRN PRN Reason: Breakthrough Pain Naloxone HCl (Narcan) 0.1 mg IVPUSH Q5M PRN PRN Reason: Oversedation Ondansetron HCl (Zofran) 4 mg IVPUSH Q6H PRN PRN Reason: Nausea/Vomiting Last Admin: 08/07/19 11:10 Dose: 4 mg Pantoprazole Sodium (Protonix) 40 mg PO DAILY [facility] Last Admin: 08/10/19 08:34 Dose: 40 mg Admin: 08/09/19 09:43 Dose: 40 mg Admin: 08/08/19 09:18 Dose: 40 mg Admin: 08/07/19 09:39 Dose: 40 mg Fexofenadine Hcl 180 (Mg) 0 each PO DAILY [facility] Last Admin: 08/10/19 08:37 Dose: 1 each Admin: 08/09/19 09:48 Dose: 1 each Admin: 08/08/19 15:02 Dose: 1 each Levocetirizine Dihydrochloride [ Xyzal] 5 Mg 0 each PO DAILY [facility] Last Admin: 08/10/19 08:37 Dose: 1 each Admin: 08/09/19 09:48 Dose: 1 each Admin: 08/08/19 15:04 Dose: 1 each Propranolol HCl (Inderal La) 120 mg PO DAILY [facility] Last Admin: 08/10/19 08:33 Dose: 120 mg Admin: 08/09/19 09:40 Dose: 120 mg Admin: 08/08/19 09:19 Dose: 120 mg Admin: 08/07/19 09:35 Dose: 120 mg Senna (Senna) 8.6 mg PO BID PRN PRN Reason: Constipation Sodium Phosphate (Neutra-Phos) 250 mg PO BID [facility] Stop: 08/10/19 21:01 Last Admin: 08/10/19 08:33 Dose: 250 mg - Assessment Assessment (Free Text/Narrative):: POD#4 - s/p left RAGHAVENDRA - Plan Plan (Free Text/Narrative):: 1. Pt is progressing with therapies. Continue with WBAT, RAGHAVENDRA precautions. 2. ASA PO BID, frequent mobility, TEDs. 3. Discharge to NH for continued rehab and bi-pap use. Sleep study pending. 4. Medical management per Hospitalist service. The pt will remain in Hospital x > 96 hours while awaiting NH placement, for continued respiratory therapy and for continued PT and OT. The pt's case was discussed with Dr. Garza.
--- NOTE | 2019-08-11 09:08 | PCM.CONSN ---
- General Info Date of Service: 08/11/19 Subjective Update: Feeling ok Slept better BM 08/09 Tolerating diet Ambulating with assistance - Patient Data Vitals - Most Recent: Last Vital Signs Temp 98.2 F 08/11/19 04:38 Pulse 81 08/11/19 04:38 Resp 13 08/11/19 04:38 BP 146/81 H 08/11/19 04:38 Pulse Ox 96 08/11/19 04:38 Weight - Most Recent: 94.211 kg - Exam Physical Findings Comments:: Quality Assessment: Supplemental Oxygen (1L), DVT Prophylaxis General: Alert, Oriented, Cooperative, No Acute Distress HEENT: Pupils Equal, Pupils Reactive, Mucous Membr. Moist/[place] Neck: Supple, Trachea Midline Lungs: Normal Respiratory Effort, Decreased Breath Sounds Cardiovascular: Regular Rate, Regular Rhythm GI/Abdominal Exam: Normal Bowel Sounds, Soft, Non-Tender, No Distention (Female) Exam: Deferred Back Exam: Normal Inspection, Full Range of Motion Extremities: Normal Capillary Refill, Leg Pain, Limited Range of Motion, Other ( Bandage in place on left leg. Cooling pack in place. ) Peripheral Pulses: 2+: Radial (L), Radial (R), Dorsalis Pedis (L), Dorsalis Pedis (R) Skin: Warm, Dry, Intact Wound/Incisions: Dressing Dry and Intact Neurological: No New Focal Deficit Psy/Mental Status: Alert (at times - mental status has improved today however she still has moments of sleepiness. ) Sepsis Event Note - Evaluation Sepsis Screening Result: No Definite Risk Consult PN Assessment/Plan POD#: 4 Procedures: Procedures AFTER CATARACT LASER SURGERY (08/17/16) ASSAY OF CREATININE (11/22/13) ASSAY OF MAGNESIUM (11/14/13) BLOOD CULTURE FOR BACTERIA (11/14/13) C-REACTIVE PROTEIN (11/14/13) CHEST X-RAY 2VW FRONTAL&LATL (11/14/13) COMPLETE CBC W/AUTO DIFF WBC (11/14/13) COMPREHEN METABOLIC PANEL (11/14/13) CT HEAD/BRAIN W/O DYE (11/14/13) CULTURE SCREEN ONLY (04/09/18) EMERGENCY DEPT VISIT (09/10/14) GAIT TRAINING THERAPY (11/14/13) HEPATITIS B SURFACE AG IA (09/10/14) HEPATITIS C AB TEST (09/10/14) MEASURE BLOOD OXYGEN LEVEL (11/14/13) MEASURE BLOOD OXYGEN LEVEL (11/14/13) MR ANGIOGRAPHY HEAD W/O DYE (11/14/13) MRI BRAIN STEM W/O & W/DYE (11/14/13) MRI NECK SPINE W/O DYE (11/22/13) PARATHYRD PLANAR W/SPECT&CT (11/18/14) POLYSOM 6/> YRS 4/> BEREKET (12/14/16) PT EVALUATION (11/14/13) ROUTINE VENIPUNCTURE (11/22/13) URINALYSIS AUTO W/SCOPE (11/14/13) URINE BACTERIA CULTURE (11/14/13) WEST NILE VIRUS AB IGM (11/14/13) (1) Altered mental state SNOMED Code(s): 709541042 Code(s): R41.82 - ALTERED MENTAL STATUS, UNSPECIFIED Priority: High Qualifiers: Altered mental status type: unspecified Qualified Code(s): R41.82 - Altered mental status, unspecified (2) Anemia SNOMED Code(s): 387856948 Code(s): D64.9 - ANEMIA, UNSPECIFIED Priority: Low Qualifiers: Anemia type: unspecified type Qualified Code(s): D64.9 - Anemia, unspecified (3) CKD (chronic kidney disease) stage 3, GFR 30-59 ml/min SNOMED Code(s): 671439659 Code(s): N18.3 - CHRONIC KIDNEY DISEASE, STAGE 3 (MODERATE) Priority: Medium (4) Cervical radiculopathy SNOMED Code(s): 06802614 Code(s): M54.12 - RADICULOPATHY, CERVICAL REGION Priority: Low (5) Depression SNOMED Code(s): 28306479 Code(s): F32.9 - MAJOR DEPRESSIVE DISORDER, SINGLE EPISODE, UNSPECIFIED Priority: Low Qualifiers: Depression Type: other depression Qualified Code(s): F32.89 - Other specified depressive episodes (6) Former smoker SNOMED Code(s): 4827722 Code(s): Z87.891 - PERSONAL HISTORY OF NICOTINE DEPENDENCE Priority: Low (7) GERD (gastroesophageal reflux disease) SNOMED Code(s): 820040125 Code(s): K21.9 - GASTRO-ESOPHAGEAL REFLUX DISEASE WITHOUT ESOPHAGITIS Priority: Low Qualifiers: Esophagitis presence: esophagitis presence not specified Qualified Code(s) : K21.9 - Gastro-esophageal reflux disease without esophagitis (8) HLD (hyperlipidemia) SNOMED Code(s): 88505934 Code(s): E78.5 - HYPERLIPIDEMIA, UNSPECIFIED Priority: Low Qualifiers: Hyperlipidemia type: unspecified Qualified Code(s): E78.5 - Hyperlipidemia , unspecified (9) HTN (hypertension) SNOMED Code(s): 15438258 Code(s): I10 - ESSENTIAL (PRIMARY) HYPERTENSION Priority: Medium Qualifiers: Hypertension type: unspecified Qualified Code(s): I10 - Essential (primary ) hypertension (10) Headache SNOMED Code(s): 41156201 Code(s): R51 - HEADACHE Priority: Low Qualifiers: Headache type: unspecified Headache chronicity pattern: unspecified pattern Intractability: not intractable Qualified Code(s): R51 - Headache (11) Osteoarthritis SNOMED Code(s): 334520870 Code(s): M19.90 - UNSPECIFIED OSTEOARTHRITIS, UNSPECIFIED SITE Priority: High Qualifiers: Osteoarthritis location: hip Osteoarthritis type: primary Laterality: left Qualified Code(s): M16.12 - Unilateral primary osteoarthritis, left hip (12) Osteoporosis SNOMED Code(s): 98319951 Code(s): M81.0 - AGE-RELATED OSTEOPOROSIS W/O CURRENT PATHOLOGICAL FRACTURE Priority: Low Qualifiers: Osteoporosis type: unspecified Presence of current pathological fracture: unspecified Qualified Code(s): M81.0 - Age-related osteoporosis without current pathological fracture (13) Positive result for methicillin resistant Staphylococcus aureus (MRSA) screening SNOMED Code(s): 630112624 Code(s): Z22.322 - CARRIER OR SUSPECTED CARRIER OF METHICILLIN RESIS STAPH Priority: Medium (14) Rash SNOMED Code(s): 334065294 Code(s): R21 - RASH AND OTHER NONSPECIFIC SKIN ERUPTION Priority: Low (15) Rheumatoid arthritis SNOMED Code(s): 02775538 Code(s): M06.9 - RHEUMATOID ARTHRITIS, UNSPECIFIED Priority: Low Qualifiers: Rheumatoid arthritis location: unspecified site Rheumatoid factor presence : unspecified presence Qualified Code(s): M06.9 - Rheumatoid arthritis, unspecified (16) S/P total hip arthroplasty SNOMED Code(s): 812921204873, 230704167677 Code(s): Z96.649 - PRESENCE OF UNSPECIFIED ARTIFICIAL HIP JOINT Priority: High Qualifiers: Laterality: left Qualified Code(s): Z96.642 - Presence of left artificial hip joint (17) Sleep apnea SNOMED Code(s): 92460600 Code(s): G47.30 - SLEEP APNEA, UNSPECIFIED Priority: Low Qualifiers: Sleep apnea type: unspecified type Qualified Code(s): G47.30 - Sleep apnea , unspecified (18) TMJ (temporomandibular joint syndrome) SNOMED Code(s): 52067412 Code(s): M26.609 - UNSPECIFIED TMJ JOINT DISORDER, UNSPECIFIED SIDE Priority: Low (19) Vitamin D deficiency SNOMED Code(s): 14851640 Code(s): E55.9 - VITAMIN D DEFICIENCY, UNSPECIFIED Priority: Low Problem List Initiated/Reviewed/Updated: Yes Plan: S/P left total hip arthroplasty Post-operative day 5 DVT prophylaxis and pain management per primary care team PLAN -PT/OT - IS/RT - Monitor oxygen saturation - Titrate oxygen as needed - Pain management with [place] and morphine as needed Altered mental status, improved Obstructive sleep apnea Acute hypercapnic respiratory failure, resolved Acute hypoxemic respiratory failure O2 via NC at 1L until midnight and off since then > 93% PLAN - Continue to monitor - BiPAP for sleep - Avoid central acting medications as much as possible - Incentive spirometry NOREEN, improved CKD stage III Improved GFR Adequate urine output, 1500/24hr PLAN - Monitor urine output - Renally dosed medications - Avoid nephrotoxic agents -Kidney function labs as above -Started on IV fluids last night -Improved urine output - monitor Hypertension BP trend 134-154/71-78 PLAN - Continue amlodipine - Continue losartan S/P Post-operative urinary retention, resolved Hypophosphatemia, resolved PROPHYLAXIS DVT- ASA GI- not indicated CODE STATUS: FULL CODE DISPOSITION: Will remain admitted for possible disposition on Tuesday to skilled nursing as per PT recommendations.
[2019-08-11] MEDS: Gemfibrozil 600 MG Tab PO SCH (09:23)
[2019-08-11] MEDS: Losartan 25 MG Tab PO SCH (09:23)
[2019-08-11] MEDS: amLODIPine 5 MG Tab PO SCH (09:23)
[2019-08-11] MEDS: Propranolol 60 MG Cap.ER PO SCH (09:24)
[2019-08-11] MEDS: Pantoprazole 40 MG Tab.CR PO SCH (09:24)
[2019-08-11] MEDS: Aspirin 325 MG Tab.EC PO SCH ×2 (09:24→21:25)
[2019-08-11] MEDS: Folic Acid 1 MG Tab PO SCH (09:24)
[2019-08-11] MEDS: DULoxetine 30 MG Cap PO SCH (09:24)
[2019-08-11] MEDS: Ezetimibe 10 MG Tab PO SCH (09:25)
[2019-08-11] MEDS: Docusate Sodium 100 MG Cap PO SCH ×2 (09:25→21:25)
[2019-08-11] MEDS: Acetaminophen/HYDROcodone 325-5 MG Tab PO PRN (11:40)
--- NOTE | 2019-08-11 11:41 | PCM.SURGPN ---
- General Info Date of Service: 08/11/19 POD#: 5 Functional Status: Reports: Pain Controlled, Tolerating Diet, Ambulating, Urinating, Incentive Spirometry (From the orthopedic standpoint, the pt is doing very well.) - Patient Data Vitals - Most Recent: Last Vital Signs Temp 98.4 F 08/11/19 08:52 Pulse 90 08/11/19 08:52 Resp 18 08/11/19 08:52 BP 162/79 H 08/11/19 09:23 Pulse Ox 95 08/11/19 08:52 Orthostatic Blood Pressure [ 110/78 Sitting] Orthostatic Blood Pressure [ 122/88 Standing] Orthostatic Blood Pressure [ 103/68 Supine] Weight - Most Recent: 207 lb 11.2 oz I&O - Last 24 Hours: Intake & Output 08/10/19 08/11/19 08/11/19 22:59 06:59 14:59 Intake Total 780 800 360 Output Total 650 875 Balance 130 -75 360 Med Orders - Current: Current Medications Hydrocodone Bitart/Acetaminophen ([place] 325-5 Mg) 1 - 2 tab PO Q6H PRN PRN Reason: Pain Last Admin: 08/10/19 21:01 Dose: 1 tab Amlodipine Besylate (Norvasc) 5 mg PO DAILY [facility] Last Admin: 08/11/19 09:23 Dose: 5 mg Aspirin (Ecotrin) 325 mg PO BID [facility] Last Admin: 08/11/19 09:24 Dose: 325 mg Bisacodyl (Dulcolax) 5 mg PO DAILY PRN PRN Reason: Constipation Last Admin: 08/08/19 21:05 Dose: 5 mg Docusate Sodium (Colace) 100 mg PO BID [facility] Last Admin: 08/11/19 09:25 Dose: 100 mg Duloxetine HCl (Cymbalta) 60 mg PO DAILY [facility] Last Admin: 08/11/19 09:24 Dose: 60 mg Ezetimibe (Zetia) 10 mg PO DAILY [facility] Last Admin: 08/11/19 09:25 Dose: 10 mg Folic Acid (Folic Acid) 1 mg PO DAILY [facility] Last Admin: 08/11/19 09:24 Dose: 1 mg Gemfibrozil (Lopid) 600 mg PO DAILY [facility] Last Admin: 08/11/19 09:23 Dose: 600 mg Losartan Potassium (Cozaar) 50 mg PO DAILY [facility] Last Admin: 08/11/19 09:23 Dose: 50 mg Morphine Sulfate (Morphine) 2 mg IVPUSH Q2H PRN PRN Reason: Breakthrough Pain Naloxone HCl (Narcan) 0.1 mg IVPUSH Q5M PRN PRN Reason: Oversedation Ondansetron HCl (Zofran) 4 mg IVPUSH Q6H PRN PRN Reason: Nausea/Vomiting Last Admin: 08/07/19 11:10 Dose: 4 mg Pantoprazole Sodium (Protonix) 40 mg PO DAILY [facility] Last Admin: 08/11/19 09:24 Dose: 40 mg Fexofenadine Hcl 180 (Mg) 0 each PO DAILY [facility] Last Admin: 08/11/19 09:34 Dose: 1 each Levocetirizine Dihydrochloride [ Xyzal] 5 Mg 0 each PO DAILY [facility] Last Admin: 08/11/19 09:34 Dose: 1 each Propranolol HCl (Inderal La) 120 mg PO DAILY [facility] Last Admin: 08/11/19 09:24 Dose: 120 mg Senna (Senna) 8.6 mg PO BID PRN PRN Reason: Constipation Discontinued Medications Acetaminophen (Tylenol) 975 mg PO ONETIME [facility] Stop: 08/06/19 16:00 Acetaminophen (Tylenol) 975 mg PO ONETIME [facility] Stop: 08/06/19 14:00 Last Admin: 08/06/19 10:31 Dose: 975 mg Bupivacaine HCl (Sensorcaine-Mpf 0.25%) Confirm Administered Dose 30 ml .ROUTE .STK-MED ONE Stop: 08/06/19 10:23 Last Admin: 08/06/19 12:27 Dose: 30 ml Cefazolin Sodium (Ancef) Confirm Administered Dose 2 gm .ROUTE .STK-MED ONE Stop: 08/06/19 09:52 Last Admin: 08/06/19 12:23 Dose: 2 gm Cefazolin Sodium (Ancef) Confirm Administered Dose 2 gm .ROUTE .STK-MED ONE Stop: 08/06/19 10:22 Clonidine HCl (Duraclon) Confirm Administered Dose 1,000 mcg .ROUTE .STK-MED ONE Stop: 08/06/19 11:32 Morphine Sulfate 8 mg/Epinephrine HCl 0.3 mg/Cefuroxime Sodium 750 mg/Ketorolac Tromethamine 30 mg/Sodium Chloride 7.9 ml 0 mg .XX ONETIME ONE Stop: 08/06/19 10:01 Last Admin: 08/06/19 12:27 Dose: 788.3 mg Famotidine (Pepcid) 20 mg PO Q12H [facility] Fentanyl (Sublimaze) Confirm Administered Dose 100 mcg .ROUTE .STK-MED ONE Stop: 08/06/19 09:49 Glycopyrrolate () Confirm Administered Dose 1 mg .ROUTE .STK-MED ONE Stop: 08/06/19 12:06 Lactated Ringer's (Ringers, Lactated) 1,000 mls @ 125 mls/hr IV ASDIRECTED [facility] Stop: 08/06/19 23:00 Last Admin: 08/06/19 10:40 Dose: 125 mls/hr Cefazolin Sodium/Dextrose 2 gm (/ Premix) 50 mls @ 100 mls/hr IV Q8H [facility] Stop: 08/07/19 10:59 Last Admin: 08/07/19 09:44 Dose: 100 mls/hr Lidocaine HCl (Xylocaine-Mpf 1%) Confirm Administered Dose 4 mls @ as directed .ROUTE .STK-MED ONE Stop: 08/06/19 09:50 Vancomycin HCl 1 gm/Vancomycin HCl 500 mg/ Sodium Chloride 500 mls @ 250 mls/ hr IV ONETIME ONE Stop: 08/06/19 12:59 Last Admin: 08/06/19 11:05 Dose: 250 mls/hr Lactated Ringer's (Ringers, Lactated) Confirm Administered Dose 1,000 mls @ as directed .ROUTE .STK-MED ONE Stop: 08/06/19 12:54 Lactated Ringer's (Ringers, Lactated) 1,000 mls @ 999 mls/hr IV .BOLUS ONE Stop: 08/07/19 06:54 Last Admin: 08/07/19 06:02 Dose: 999 mls/hr Lactated Ringer's (Ringers, Lactated) 1,000 mls @ 200 mls/hr IV ASDIRECTED [facility] Stop: 08/07/19 10:59 Last Admin: 08/07/19 07:37 Dose: 200 mls/hr Iodine (Iodine 2% Mild Tincture) Confirm Administered Dose 30 ml .ROUTE .STK- MED ONE Stop: 08/06/19 10:23 Last Admin: 08/06/19 12:21 Dose: 18 ml Lidocaine HCl (Xylocaine-Mpf 1%) Confirm Administered Dose 5 ml .ROUTE .STK-MED ONE Stop: 08/06/19 11:32 Lidocaine/Sodium Bicarbonate (Buffered Lidocaine 1% In Ns 8.4%) 0.25 ml IDERM ONETIME PRN PRN Reason: Prior to IV Start Stop: 08/06/19 18:00 Last Admin: 08/06/19 10:39 Dose: 0.25 ml Midazolam HCl (Versed 1 Mg/Ml) Confirm Administered Dose 2 mg .ROUTE .STK-MED ONE Stop: 08/06/19 09:51 Miscellaneous Medication (Phenylephrine 1 Mg/10 Ml-Ns) Confirm Administered Dose 1 mg IV .STK-MED ONE Stop: 08/06/19 12:28 Miscellaneous Medication (Phenylephrine 1 Mg/10 Ml-Ns) Confirm Administered Dose 1 mg IV .STK-MED ONE Stop: 08/06/19 12:54 Naloxone HCl (Narcan) 0.4 mg IVPUSH Q3M [facility] Stop: 08/07/19 20:22 Last Admin: 08/07/19 21:01 Dose: 0.4 mg Oxycodone HCl (Oxycontin) 10 mg PO ONETIME [facility] Stop: 08/06/19 16:00 Oxycodone HCl (Oxycontin) 10 mg PO ONETIME [facility] Stop: 08/06/19 14:00 Last Admin: 08/06/19 10:31 Dose: 10 mg Oxycodone/Acetaminophen (Percocet 325-5 Mg) 1 - 2 tab PO Q4H PRN PRN Reason: Pain Last Admin: 08/06/19 22:28 Dose: 2 tab Fexofenadine Hcl 180 (Mg) 0 each PO DAILY [facility] Last Admin: 08/07/19 09:42 Dose: Not Given Levocetirizine Dihydrochloride [ Xyzal] 5 Mg 0 each PO DAILY [facility] Last Admin: 08/07/19 09:42 Dose: Not Given Pregabalin (Lyrica) 50 mg PO ONETIME [facility] Stop: 08/06/19 16:00 Pregabalin (Lyrica) 50 mg PO ONETIME [facility] Stop: 08/06/19 14:00 Last Admin: 08/06/19 10:31 Dose: 50 mg Propofol (Diprivan 20 Ml) Confirm Administered Dose 200 mg .ROUTE .STK-MED ONE Stop: 08/06/19 09:50 Sodium Chloride (Saline Flush) 10 ml FLUSH ASDIRECTED PRN PRN Reason: Keep Vein Open Stop: 08/06/19 18:00 Sodium Phosphate (Neutra-Phos) 250 mg PO BID [facility] Stop: 08/10/19 21:01 Last Admin: 08/10/19 21:00 Dose: 250 mg Tranexamic Acid (Cyklokapron) Confirm Administered Dose 1,000 mg .ROUTE .STK- MED ONE Stop: 08/06/19 10:22 Last Admin: 08/06/19 12:28 Dose: 1,000 mg Vancomycin HCl (Vancomycin) Confirm Administered Dose 1 gm .ROUTE .STK-MED ONE Stop: 08/06/19 10:23 Last Admin: 08/06/19 12:28 Dose: 1 gm - Exam Wound/Incisions: Dressing Dry and Intact General: Alert, Cooperative, No Acute Distress Lungs: Normal Respiratory Effort Extremities: Other (NVS intact for BLE. Deborah's negative.) Sepsis Event Note - Evaluation Sepsis Screening Result: No Definite Risk - Focused Exam Vital Signs: Vital Signs Temp Pulse Resp BP Pulse Ox 08/11/19 09:23 162/79 H 08/11/19 08:52 98.4 F 90 18 162/79 H 95 08/11/19 04:38 98.2 F 81 13 146/81 H 96 Date Exam was Performed: 08/11/19 Time Exam was Performed: 11:39 - Problem List Review Problem List Initiated/Reviewed/Updated: Yes - My Orders Last 24 Hours: Active Orders 24 hr Category Date Time Status Dressing Change [Wound Care] [RC] 04,10,16,22 Care 08/10/19 14:17 Active Medication Orders Hydrocodone Bitart/Acetaminophen ([place] 325-5 Mg) 1 - 2 tab PO Q6H PRN PRN Reason: Pain Last Admin: 08/10/19 21:01 Dose: 1 tab Admin: 08/10/19 08:36 Dose: 1 tab Admin: 08/09/19 20:45 Dose: 1 tab Admin: 08/08/19 15:04 Dose: 1 tab Admin: 08/08/19 06:33 Dose: 1 tab Admin: 08/07/19 22:10 Dose: 1 tab Admin: 08/07/19 09:52 Dose: 1 tab Amlodipine Besylate (Norvasc) 5 mg PO DAILY [facility] Last Admin: 08/11/19 09:23 Dose: 5 mg Admin: 08/10/19 08:36 Dose: 5 mg Admin: 08/09/19 09:42 Dose: 5 mg Admin: 08/08/19 09:18 Dose: 5 mg Admin: 08/07/19 09:40 Dose: 5 mg Aspirin (Ecotrin) 325 mg PO BID [facility] Last Admin: 08/11/19 09:24 Dose: 325 mg Admin: 08/10/19 21:00 Dose: 325 mg Admin: 08/10/19 08:36 Dose: 325 mg Admin: 08/09/19 20:18 Dose: 325 mg Admin: 08/09/19 09:42 Dose: 325 mg Admin: 08/08/19 21:05 Dose: 325 mg Admin: 08/08/19 09:16 Dose: 325 mg Admin: 08/07/19 21:07 Dose: 325 mg Admin: 08/07/19 09:37 Dose: 325 mg Bisacodyl (Dulcolax) 5 mg PO DAILY PRN PRN Reason: Constipation Last Admin: 08/08/19 21:05 Dose: 5 mg Docusate Sodium (Colace) 100 mg PO BID [facility] Last Admin: 08/11/19 09:25 Dose: 100 mg Admin: 08/10/19 21:00 Dose: 100 mg Admin: 08/10/19 08:34 Dose: 100 mg Admin: 08/09/19 20:18 Dose: 100 mg Admin: 08/09/19 09:44 Dose: 100 mg Admin: 08/08/19 21:05 Dose: 100 mg Admin: 08/08/19 09:16 Dose: 100 mg Admin: 08/07/19 21:08 Dose: 100 mg Admin: 08/07/19 09:38 Dose: 100 mg Admin: 08/06/19 21:50 Dose: 100 mg Duloxetine HCl (Cymbalta) 60 mg PO DAILY [facility] Last Admin: 08/11/19 09:24 Dose: 60 mg Admin: 08/10/19 08:34 Dose: 60 mg Admin: 08/09/19 09:41 Dose: 60 mg Admin: 08/08/19 09:16 Dose: 60 mg Admin: 08/07/19 09:36 Dose: 60 mg Ezetimibe (Zetia) 10 mg PO DAILY [facility] Last Admin: 08/11/19 09:25 Dose: 10 mg Admin: 08/10/19 08:35 Dose: 10 mg Admin: 08/09/19 09:44 Dose: 10 mg Admin: 08/08/19 09:20 Dose: 10 mg Admin: 08/07/19 09:40 Dose: 10 mg Folic Acid (Folic Acid) 1 mg PO DAILY [facility] Last Admin: 08/11/19 09:24 Dose: 1 mg Admin: 08/10/19 08:36 Dose: 1 mg Admin: 08/09/19 09:44 Dose: 1 mg Admin: 08/08/19 09:18 Dose: 1 mg Admin: 08/07/19 09:40 Dose: 1 mg Gemfibrozil (Lopid) 600 mg PO DAILY [facility] Last Admin: 08/11/19 09:23 Dose: 600 mg Admin: 08/10/19 08:35 Dose: 600 mg Admin: 08/09/19 09:44 Dose: 600 mg Admin: 08/08/19 09:19 Dose: 600 mg Admin: 08/07/19 09:37 Dose: 600 mg Losartan Potassium (Cozaar) 50 mg PO DAILY [facility] Last Admin: 08/11/19 09:23 Dose: 50 mg Admin: 08/10/19 08:32 Dose: 50 mg Admin: 08/09/19 09:41 Dose: 50 mg Admin: 08/08/19 09:17 Dose: 50 mg Admin: 08/07/19 09:38 Dose: 50 mg Morphine Sulfate (Morphine) 2 mg IVPUSH Q2H PRN PRN Reason: Breakthrough Pain Naloxone HCl (Narcan) 0.1 mg IVPUSH Q5M PRN PRN Reason: Oversedation Ondansetron HCl (Zofran) 4 mg IVPUSH Q6H PRN PRN Reason: Nausea/Vomiting Last Admin: 08/07/19 11:10 Dose: 4 mg Pantoprazole Sodium (Protonix) 40 mg PO DAILY [facility] Last Admin: 08/11/19 09:24 Dose: 40 mg Admin: 08/10/19 08:34 Dose: 40 mg Admin: 08/09/19 09:43 Dose: 40 mg Admin: 08/08/19 09:18 Dose: 40 mg Admin: 08/07/19 09:39 Dose: 40 mg Fexofenadine Hcl 180 (Mg) 0 each PO DAILY [facility] Last Admin: 08/11/19 09:34 Dose: 1 each Admin: 08/10/19 08:37 Dose: 1 each Admin: 08/09/19 09:48 Dose: 1 each Admin: 08/08/19 15:02 Dose: 1 each Levocetirizine Dihydrochloride [ Xyzal] 5 Mg 0 each PO DAILY [facility] Last Admin: 08/11/19 09:34 Dose: 1 each Admin: 08/10/19 08:37 Dose: 1 each Admin: 08/09/19 09:48 Dose: 1 each Admin: 08/08/19 15:04 Dose: 1 each Propranolol HCl (Inderal La) 120 mg PO DAILY [facility] Last Admin: 08/11/19 09:24 Dose: 120 mg Admin: 08/10/19 08:33 Dose: 120 mg Admin: 08/09/19 09:40 Dose: 120 mg Admin: 08/08/19 09:19 Dose: 120 mg Admin: 08/07/19 09:35 Dose: 120 mg Senna (Senna) 8.6 mg PO BID PRN PRN Reason: Constipation - Assessment Assessment (Free Text/Narrative):: POD#5 - s/p left RAGHAVENDRA - Plan Plan (Free Text/Narrative):: 1. Pt is doing well re: mobility. 2. 325mg ASA PO BID, frequent mobility, TEDs. 3. Discharge to [place] when medically cleared. Discussed pt's status with and son also today. The pt's case was discussed with Dr. Garza.
[2019-08-12] MEDS: DULoxetine 30 MG Cap PO SCH (09:55)
[2019-08-12] MEDS: Propranolol 60 MG Cap.ER PO SCH (09:55)
[2019-08-12] MEDS: Folic Acid 1 MG Tab PO SCH (09:55)
[2019-08-12] MEDS: Losartan 25 MG Tab PO SCH (09:56)
[2019-08-12] MEDS: Docusate Sodium 100 MG Cap PO SCH ×2 (09:56→20:43)
[2019-08-12] MEDS: Aspirin 325 MG Tab.EC PO SCH ×2 (09:56→20:43)
[2019-08-12] MEDS: Gemfibrozil 600 MG Tab PO SCH (09:57)
[2019-08-12] MEDS: Ezetimibe 10 MG Tab PO SCH (09:57)
[2019-08-12] MEDS: amLODIPine 5 MG Tab PO SCH (09:57)
--- NOTE | 2019-08-12 19:28 | PCM.CONSN ---
- General Info Date of Service: 08/12/19 Subjective Update: BM 08/09 Slept ok Tolerating diet Feels great - Patient Data Vitals - Most Recent: Last Vital Signs Temp 97.9 F 08/12/19 15:10 Pulse 73 08/12/19 15:10 Resp 20 08/12/19 15:10 BP 149/71 H 08/12/19 15:10 Pulse Ox 96 08/12/19 15:10 Weight - Most Recent: 94.166 kg - Exam Physical Findings Comments:: Quality Assessment: Supplemental Oxygen (1L), DVT Prophylaxis General: Alert, Oriented, Cooperative, No Acute Distress HEENT: Pupils Equal, Pupils Reactive, Mucous Membr. Moist/[place] Neck: Supple, Trachea Midline Lungs: Normal Respiratory Effort, Decreased Breath Sounds Cardiovascular: Regular Rate, Regular Rhythm GI/Abdominal Exam: Normal Bowel Sounds, Soft, Non-Tender, No Distention (Female) Exam: Deferred Back Exam: Normal Inspection, Full Range of Motion Extremities: Normal Capillary Refill, Leg Pain, Limited Range of Motion, Other ( Bandage in place on left leg. Cooling pack in place. ) Peripheral Pulses: 2+: Radial (L), Radial (R), Dorsalis Pedis (L), Dorsalis Pedis (R) Skin: Warm, Dry, Intact Wound/Incisions: Dressing Dry and Intact Neurological: No New Focal Deficit Psy/Mental Status: Alert (at times - mental status has improved today however she still has moments of sleepiness. ) Sepsis Event Note - Evaluation Sepsis Screening Result: No Definite Risk - Focused Exam Vital Signs: Vital Signs Temp Pulse Resp BP Pulse Ox 08/12/19 15:10 97.9 F 73 20 149/71 H 96 08/12/19 09:57 154/72 H 08/12/19 09:56 154/72 H 08/12/19 07:55 98.4 F 74 20 154/72 H 95 Date Exam was Performed: 08/14/19 Time Exam was Performed: 19:21 Consult PN Assessment/Plan POD#: 6 Procedures: Procedures AFTER CATARACT LASER SURGERY (08/17/16) ASSAY OF CREATININE (11/22/13) ASSAY OF MAGNESIUM (11/14/13) BLOOD CULTURE FOR BACTERIA (11/14/13) C-REACTIVE PROTEIN (11/14/13) CHEST X-RAY 2VW FRONTAL&LATL (11/14/13) COMPLETE CBC W/AUTO DIFF WBC (11/14/13) COMPREHEN METABOLIC PANEL (11/14/13) CT HEAD/BRAIN W/O DYE (11/14/13) CULTURE SCREEN ONLY (04/09/18) EMERGENCY DEPT VISIT (09/10/14) GAIT TRAINING THERAPY (11/14/13) HEPATITIS B SURFACE AG IA (09/10/14) HEPATITIS C AB TEST (09/10/14) MEASURE BLOOD OXYGEN LEVEL (11/14/13) MEASURE BLOOD OXYGEN LEVEL (11/14/13) MR ANGIOGRAPHY HEAD W/O DYE (11/14/13) MRI BRAIN STEM W/O & W/DYE (11/14/13) MRI NECK SPINE W/O DYE (11/22/13) PARATHYRD PLANAR W/SPECT&CT (11/18/14) POLYSOM 6/> YRS 4/> BEREKET (12/14/16) PT EVALUATION (11/14/13) ROUTINE VENIPUNCTURE (11/22/13) URINALYSIS AUTO W/SCOPE (11/14/13) URINE BACTERIA CULTURE (11/14/13) WEST [place] VIRUS AB IGM (11/14/13) (1) Acute hypercapnic respiratory failure SNOMED Code(s): 118342262 Code(s): J96.02 - ACUTE RESPIRATORY FAILURE WITH HYPERCAPNIA Priority: High (2) Altered mental state SNOMED Code(s): 943449393 Code(s): R41.82 - ALTERED MENTAL STATUS, UNSPECIFIED Priority: High Qualifiers: Altered mental status type: unspecified Qualified Code(s): R41.82 - Altered mental status, unspecified (3) Anemia SNOMED Code(s): 607660428 Code(s): D64.9 - ANEMIA, UNSPECIFIED Priority: Low Qualifiers: Anemia type: unspecified type Qualified Code(s): D64.9 - Anemia, unspecified (4) Basal cell carcinoma (BCC) SNOMED Code(s): 391457009 Code(s): C44.91 - BASAL CELL CARCINOMA OF SKIN, UNSPECIFIED Priority: Low Qualifiers: Basal cell carcinoma location: unspecified site Qualified Code(s): C44.91 - Basal cell carcinoma of skin, unspecified (5) CKD (chronic kidney disease) stage 3, GFR 30-59 ml/min SNOMED Code(s): 007489458 Code(s): N18.3 - CHRONIC KIDNEY DISEASE, STAGE 3 (MODERATE) Priority: Medium (6) Cervical radiculopathy SNOMED Code(s): 62155321 Code(s): M54.12 - RADICULOPATHY, CERVICAL REGION Priority: Low (7) Depression SNOMED Code(s): 22776242 Code(s): F32.9 - MAJOR DEPRESSIVE DISORDER, SINGLE EPISODE, UNSPECIFIED Priority: Low Qualifiers: Depression Type: other depression Qualified Code(s): F32.89 - Other specified depressive episodes (8) Former smoker SNOMED Code(s): 3784690 Code(s): Z87.891 - PERSONAL HISTORY OF NICOTINE DEPENDENCE Priority: Low (9) GERD (gastroesophageal reflux disease) SNOMED Code(s): 774853277 Code(s): K21.9 - GASTRO-ESOPHAGEAL REFLUX DISEASE WITHOUT ESOPHAGITIS Priority: Low Qualifiers: Esophagitis presence: esophagitis presence not specified Qualified Code(s) : K21.9 - Gastro-esophageal reflux disease without esophagitis (10) Gout SNOMED Code(s): 77522675 Code(s): M10.9 - GOUT, UNSPECIFIED Priority: Low Qualifiers: Gout site: unspecified site Gout etiology: unspecified cause Chronicity: unspecified Qualified Code(s): M10.9 - Gout, unspecified (11) HLD (hyperlipidemia) SNOMED Code(s): 61076618 Code(s): E78.5 - HYPERLIPIDEMIA, UNSPECIFIED Priority: Low Qualifiers: Hyperlipidemia type: unspecified Qualified Code(s): E78.5 - Hyperlipidemia , unspecified (12) HTN (hypertension) SNOMED Code(s): 72632992 Code(s): I10 - ESSENTIAL (PRIMARY) HYPERTENSION Priority: Medium Qualifiers: Hypertension type: unspecified Qualified Code(s): I10 - Essential (primary ) hypertension (13) Headache SNOMED Code(s): 27619942 Code(s): R51 - HEADACHE Priority: Low Qualifiers: Headache type: unspecified Headache chronicity pattern: unspecified pattern Intractability: not intractable Qualified Code(s): R51 - Headache (14) Hypercapnemia SNOMED Code(s): 72822248 Code(s): R06.89 - OTHER ABNORMALITIES OF BREATHING Priority: High (15) Insomnia SNOMED Code(s): 008949502 Code(s): G47.00 - INSOMNIA, UNSPECIFIED Priority: Low Qualifiers: Insomnia type: unspecified Qualified Code(s): G47.00 - Insomnia, unspecified (16) Intracranial vascular stenosis SNOMED Code(s): 69504168 Code(s): I67.9 - CEREBROVASCULAR DISEASE, UNSPECIFIED Priority: Low (17) Osteoarthritis SNOMED Code(s): 747570703 Code(s): M19.90 - UNSPECIFIED OSTEOARTHRITIS, UNSPECIFIED SITE Priority: High Qualifiers: Osteoarthritis location: hip Osteoarthritis type: primary Laterality: left Qualified Code(s): M16.12 - Unilateral primary osteoarthritis, left hip (18) Osteoporosis SNOMED Code(s): 85813638 Code(s): M81.0 - AGE-RELATED OSTEOPOROSIS W/O CURRENT PATHOLOGICAL FRACTURE Priority: Low Qualifiers: Osteoporosis type: unspecified Presence of current pathological fracture: unspecified Qualified Code(s): M81.0 - Age-related osteoporosis without current pathological fracture (19) Positive result for methicillin resistant Staphylococcus aureus (MRSA) screening SNOMED Code(s): 749829015 Code(s): Z22.322 - CARRIER OR SUSPECTED CARRIER OF METHICILLIN RESIS STAPH Priority: Medium (20) Postoperative urinary retention SNOMED Code(s): 908535713 Code(s): N99.89 - OTH POSTPROCEDURAL COMPLICATIONS AND DISORDERS OF SYS; R33.8 - OTHER RETENTION OF URINE Priority: High (21) Rheumatoid arthritis SNOMED Code(s): 91335374 Code(s): M06.9 - RHEUMATOID ARTHRITIS, UNSPECIFIED Priority: Low Qualifiers: Rheumatoid arthritis location: unspecified site Rheumatoid factor presence : unspecified presence Qualified Code(s): M06.9 - Rheumatoid arthritis, unspecified (22) S/P total hip arthroplasty SNOMED Code(s): 017335390178, 252163543433 Code(s): Z96.649 - PRESENCE OF UNSPECIFIED ARTIFICIAL HIP JOINT Priority: High Qualifiers: Laterality: left Qualified Code(s): Z96.642 - Presence of left artificial hip joint (23) Sleep apnea SNOMED Code(s): 86347643 Code(s): G47.30 - SLEEP APNEA, UNSPECIFIED Priority: Low Qualifiers: Sleep apnea type: unspecified type Qualified Code(s): G47.30 - Sleep apnea , unspecified (24) TMJ (temporomandibular joint syndrome) SNOMED Code(s): 29054894 Code(s): M26.609 - UNSPECIFIED TMJ JOINT DISORDER, UNSPECIFIED SIDE Priority: Low (25) Vitamin D deficiency SNOMED Code(s): 93043071 Code(s): E55.9 - VITAMIN D DEFICIENCY, UNSPECIFIED Priority: Low Problem List Initiated/Reviewed/Updated: Yes Plan: S/P left total hip arthroplasty Post-operative day 6 Pain controlled DVT prophylaxis and pain management per primary care team PLAN -PT/OT - IS/RT - Monitor oxygen saturation - Titrate oxygen as needed - Pain management with [place] and morphine as needed Altered mental status, improved Obstructive sleep apnea Acute hypercapnic respiratory failure, resolved Acute hypoxemic respiratory failure >90% on 24% NC PLAN - Continue to monitor - BiPAP for sleep - Avoid central acting medications as much as possible - Incentive spirometry NOREEN, improved CKD stage III Improved GFR Adequate urine output, 1525/24hr PLAN - Monitor urine output - Renally dosed medications - Avoid nephrotoxic agents Hypertension BP trend 111-129/66-76 PLAN - Continue amlodipine - Continue losartan S/P Post-operative urinary retention, resolved Hypophosphatemia, resolved PROPHYLAXIS DVT- ASA GI- not indicated CODE STATUS: FULL CODE DISPOSITION: Will remain admitted for possible disposition on Tuesday to alf as per PT recommendations.
[2019-08-12] MEDS: Acetaminophen/HYDROcodone 325-5 MG Tab PO PRN (20:43)
--- NOTE | 2019-08-12 22:19 | PCM.SURGPN ---
- General Info Date of Service: 08/12/19 POD#: 6 Functional Status: Reports: Pain Controlled, Tolerating Diet, Ambulating, Urinating, Incentive Spirometry - Patient Data Vitals - Most Recent: Last Vital Signs Temp 97.9 F 08/12/19 15:10 Pulse 73 08/12/19 15:10 Resp 20 08/12/19 15:10 BP 149/71 H 08/12/19 15:10 Pulse Ox 96 08/12/19 15:10 Orthostatic Blood Pressure [ 110/78 Sitting] Orthostatic Blood Pressure [ 122/88 Standing] Orthostatic Blood Pressure [ 103/68 Supine] Weight - Most Recent: 207 lb 9.6 oz I&O - Last 24 Hours: Intake & Output 08/12/19 08/12/19 08/12/19 06:59 14:59 22:59 Intake Total 800 240 637 Output Total 1350 Balance -550 240 637 Med Orders - Current: Current Medications Hydrocodone Bitart/Acetaminophen ([place] 325-5 Mg) 1 - 2 tab PO Q6H PRN PRN Reason: Pain Last Admin: 08/12/19 20:43 Dose: 1 tab Amlodipine Besylate (Norvasc) 5 mg PO DAILY [facility] Last Admin: 08/12/19 09:57 Dose: 5 mg Aspirin (Ecotrin) 325 mg PO BID [facility] Last Admin: 08/12/19 20:43 Dose: 325 mg Bisacodyl (Dulcolax) 5 mg PO DAILY PRN PRN Reason: Constipation Last Admin: 08/08/19 21:05 Dose: 5 mg Docusate Sodium (Colace) 100 mg PO BID [facility] Last Admin: 08/12/19 20:43 Dose: 100 mg Duloxetine HCl (Cymbalta) 60 mg PO DAILY [facility] Last Admin: 08/12/19 09:55 Dose: 60 mg Ezetimibe (Zetia) 10 mg PO DAILY [facility] Last Admin: 08/12/19 09:57 Dose: 10 mg Folic Acid (Folic Acid) 1 mg PO DAILY [facility] Last Admin: 08/12/19 09:55 Dose: 1 mg Gemfibrozil (Lopid) 600 mg PO DAILY [facility] Last Admin: 08/12/19 09:57 Dose: 600 mg Losartan Potassium (Cozaar) 50 mg PO DAILY [facility] Last Admin: 08/12/19 09:56 Dose: 50 mg Morphine Sulfate (Morphine) 2 mg IVPUSH Q2H PRN PRN Reason: Breakthrough Pain Naloxone HCl (Narcan) 0.1 mg IVPUSH Q5M PRN PRN Reason: Oversedation Ondansetron HCl (Zofran) 4 mg IVPUSH Q6H PRN PRN Reason: Nausea/Vomiting Last Admin: 08/07/19 11:10 Dose: 4 mg Fexofenadine Hcl 180 (Mg) 0 each PO DAILY [facility] Last Admin: 08/12/19 09:59 Dose: 1 each Levocetirizine Dihydrochloride [ Xyzal] 5 Mg 0 each PO DAILY [facility] Last Admin: 08/12/19 09:59 Dose: 1 each Propranolol HCl (Inderal La) 120 mg PO DAILY [facility] Last Admin: 08/12/19 09:55 Dose: 120 mg Senna (Senna) 8.6 mg PO BID PRN PRN Reason: Constipation Discontinued Medications Acetaminophen (Tylenol) 975 mg PO ONETIME [facility] Stop: 08/06/19 16:00 Acetaminophen (Tylenol) 975 mg PO ONETIME [facility] Stop: 08/06/19 14:00 Last Admin: 08/06/19 10:31 Dose: 975 mg Bupivacaine HCl (Sensorcaine-Mpf 0.25%) Confirm Administered Dose 30 ml .ROUTE .STK-MED ONE Stop: 08/06/19 10:23 Last Admin: 08/06/19 12:27 Dose: 30 ml Cefazolin Sodium (Ancef) Confirm Administered Dose 2 gm .ROUTE .STK-MED ONE Stop: 08/06/19 09:52 Last Admin: 08/06/19 12:23 Dose: 2 gm Cefazolin Sodium (Ancef) Confirm Administered Dose 2 gm .ROUTE .STK-MED ONE Stop: 08/06/19 10:22 Clonidine HCl (Duraclon) Confirm Administered Dose 1,000 mcg .ROUTE .STK-MED ONE Stop: 08/06/19 11:32 Morphine Sulfate 8 mg/Epinephrine HCl 0.3 mg/Cefuroxime Sodium 750 mg/Ketorolac Tromethamine 30 mg/Sodium Chloride 7.9 ml 0 mg .XX ONETIME ONE Stop: 08/06/19 10:01 Last Admin: 08/06/19 12:27 Dose: 788.3 mg Famotidine (Pepcid) 20 mg PO Q12H [facility] Fentanyl (Sublimaze) Confirm Administered Dose 100 mcg .ROUTE .STK-MED ONE Stop: 08/06/19 09:49 Glycopyrrolate () Confirm Administered Dose 1 mg .ROUTE .STK-MED ONE Stop: 08/06/19 12:06 Lactated Ringer's (Ringers, Lactated) 1,000 mls @ 125 mls/hr IV ASDIRECTED [facility] Stop: 08/06/19 23:00 Last Admin: 08/06/19 10:40 Dose: 125 mls/hr Cefazolin Sodium/Dextrose 2 gm (/ Premix) 50 mls @ 100 mls/hr IV Q8H [facility] Stop: 08/07/19 10:59 Last Admin: 08/07/19 09:44 Dose: 100 mls/hr Lidocaine HCl (Xylocaine-Mpf 1%) Confirm Administered Dose 4 mls @ as directed .ROUTE .STK-MED ONE Stop: 08/06/19 09:50 Vancomycin HCl 1 gm/Vancomycin HCl 500 mg/ Sodium Chloride 500 mls @ 250 mls/ hr IV ONETIME [facility] Stop: 08/06/19 12:59 Last Admin: 08/06/19 11:05 Dose: 250 mls/hr Lactated Ringer's (Ringers, Lactated) Confirm Administered Dose 1,000 mls @ as directed .ROUTE .STK-MED ONE Stop: 08/06/19 12:54 Lactated Ringer's (Ringers, Lactated) 1,000 mls @ 999 mls/hr IV .BOLUS ONE Stop: 08/07/19 06:54 Last Admin: 08/07/19 06:02 Dose: 999 mls/hr Lactated Ringer's (Ringers, Lactated) 1,000 mls @ 200 mls/hr IV ASDIRECTED [facility] Stop: 08/07/19 10:59 Last Admin: 08/07/19 07:37 Dose: 200 mls/hr Iodine (Iodine 2% Mild Tincture) Confirm Administered Dose 30 ml .ROUTE .STK- MED ONE Stop: 08/06/19 10:23 Last Admin: 08/06/19 12:21 Dose: 18 ml Lidocaine HCl (Xylocaine-Mpf 1%) Confirm Administered Dose 5 ml .ROUTE .STK-MED ONE Stop: 08/06/19 11:32 Lidocaine/Sodium Bicarbonate (Buffered Lidocaine 1% In Ns 8.4%) 0.25 ml IDERM ONETIME PRN PRN Reason: Prior to IV Start Stop: 08/06/19 18:00 Last Admin: 08/06/19 10:39 Dose: 0.25 ml Midazolam HCl (Versed 1 Mg/Ml) Confirm Administered Dose 2 mg .ROUTE .STK-MED ONE Stop: 08/06/19 09:51 Miscellaneous Medication (Phenylephrine 1 Mg/10 Ml-Ns) Confirm Administered Dose 1 mg IV .STK-MED ONE Stop: 08/06/19 12:28 Miscellaneous Medication (Phenylephrine 1 Mg/10 Ml-Ns) Confirm Administered Dose 1 mg IV .STK-MED ONE Stop: 08/06/19 12:54 Naloxone HCl (Narcan) 0.4 mg IVPUSH Q3M [facility] Stop: 08/07/19 20:22 Last Admin: 08/07/19 21:01 Dose: 0.4 mg Oxycodone HCl (Oxycontin) 10 mg PO ONETIME [facility] Stop: 08/06/19 16:00 Oxycodone HCl (Oxycontin) 10 mg PO ONETIME [facility] Stop: 08/06/19 14:00 Last Admin: 08/06/19 10:31 Dose: 10 mg Oxycodone/Acetaminophen (Percocet 325-5 Mg) 1 - 2 tab PO Q4H PRN PRN Reason: Pain Last Admin: 08/06/19 22:28 Dose: 2 tab Pantoprazole Sodium (Protonix) 40 mg PO DAILY [facility] Last Admin: 08/11/19 09:24 Dose: 40 mg Fexofenadine Hcl 180 (Mg) 0 each PO DAILY [facility] Last Admin: 08/07/19 09:42 Dose: Not Given Levocetirizine Dihydrochloride [ Xyzal] 5 Mg 0 each PO DAILY [facility] Last Admin: 08/07/19 09:42 Dose: Not Given Pregabalin (Lyrica) 50 mg PO ONETIME [facility] Stop: 08/06/19 16:00 Pregabalin (Lyrica) 50 mg PO ONETIME [facility] Stop: 08/06/19 14:00 Last Admin: 08/06/19 10:31 Dose: 50 mg Propofol (Diprivan 20 Ml) Confirm Administered Dose 200 mg .ROUTE .STK-MED ONE Stop: 08/06/19 09:50 Sodium Chloride (Saline Flush) 10 ml FLUSH ASDIRECTED PRN PRN Reason: Keep Vein Open Stop: 08/06/19 18:00 Sodium Phosphate (Neutra-Phos) 250 mg PO BID [facility] Stop: 08/10/19 21:01 Last Admin: 08/10/19 21:00 Dose: 250 mg Tranexamic Acid (Cyklokapron) Confirm Administered Dose 1,000 mg .ROUTE .STK- MED ONE Stop: 08/06/19 10:22 Last Admin: 08/06/19 12:28 Dose: 1,000 mg Vancomycin HCl (Vancomycin) Confirm Administered Dose 1 gm .ROUTE .STK-MED ONE Stop: 08/06/19 10:23 Last Admin: 08/06/19 12:28 Dose: 1 gm - Exam Wound/Incisions: Dressing Dry and Intact General: Alert, Cooperative, No Acute Distress, Other (Friendly. Answers questions.) Lungs: Normal Respiratory Effort Extremities: Other (NVS intact for BLE. Deborah's negative.) Sepsis Event Note - Evaluation Sepsis Screening Result: No Definite Risk - Focused Exam Vital Signs: Vital Signs Temp Pulse Resp BP Pulse Ox 08/12/19 15:10 97.9 F 73 20 149/71 H 96 Date Exam was Performed: 08/12/19 Time Exam was Performed: 22:17 - Problem List Review Problem List Initiated/Reviewed/Updated: Yes - My Orders Last 24 Hours: Medication Orders Hydrocodone Bitart/Acetaminophen ([place] 325-5 Mg) 1 - 2 tab PO Q6H PRN PRN Reason: Pain Last Admin: 08/12/19 20:43 Dose: 1 tab Admin: 08/11/19 11:40 Dose: 2 tab Admin: 08/10/19 21:01 Dose: 1 tab Admin: 08/10/19 08:36 Dose: 1 tab Admin: 08/09/19 20:45 Dose: 1 tab Admin: 08/08/19 15:04 Dose: 1 tab Admin: 08/08/19 06:33 Dose: 1 tab Admin: 08/07/19 22:10 Dose: 1 tab Admin: 08/07/19 09:52 Dose: 1 tab Amlodipine Besylate (Norvasc) 5 mg PO DAILY [facility] Last Admin: 08/12/19 09:57 Dose: 5 mg Admin: 08/11/19 09:23 Dose: 5 mg Admin: 08/10/19 08:36 Dose: 5 mg Admin: 08/09/19 09:42 Dose: 5 mg Admin: 08/08/19 09:18 Dose: 5 mg Admin: 08/07/19 09:40 Dose: 5 mg Aspirin (Ecotrin) 325 mg PO BID [facility] Last Admin: 08/12/19 20:43 Dose: 325 mg Admin: 08/12/19 09:56 Dose: 325 mg Admin: 08/11/19 21:25 Dose: 325 mg Admin: 08/11/19 09:24 Dose: 325 mg Admin: 08/10/19 21:00 Dose: 325 mg Admin: 08/10/19 08:36 Dose: 325 mg Admin: 08/09/19 20:18 Dose: 325 mg Admin: 08/09/19 09:42 Dose: 325 mg Admin: 08/08/19 21:05 Dose: 325 mg Admin: 08/08/19 09:16 Dose: 325 mg Admin: 08/07/19 21:07 Dose: 325 mg Admin: 08/07/19 09:37 Dose: 325 mg Bisacodyl (Dulcolax) 5 mg PO DAILY PRN PRN Reason: Constipation Last Admin: 08/08/19 21:05 Dose: 5 mg Docusate Sodium (Colace) 100 mg PO BID [facility] Last Admin: 08/12/19 20:43 Dose: 100 mg Admin: 08/12/19 09:56 Dose: 100 mg Admin: 08/11/19 21:25 Dose: 100 mg Admin: 08/11/19 09:25 Dose: 100 mg Admin: 08/10/19 21:00 Dose: 100 mg Admin: 08/10/19 08:34 Dose: 100 mg Admin: 08/09/19 20:18 Dose: 100 mg Admin: 08/09/19 09:44 Dose: 100 mg Admin: 08/08/19 21:05 Dose: 100 mg Admin: 08/08/19 09:16 Dose: 100 mg Admin: 08/07/19 21:08 Dose: 100 mg Admin: 08/07/19 09:38 Dose: 100 mg Admin: 08/06/19 21:50 Dose: 100 mg Duloxetine HCl (Cymbalta) 60 mg PO DAILY [facility] Last Admin: 08/12/19 09:55 Dose: 60 mg Admin: 08/11/19 09:24 Dose: 60 mg Admin: 08/10/19 08:34 Dose: 60 mg Admin: 08/09/19 09:41 Dose: 60 mg Admin: 08/08/19 09:16 Dose: 60 mg Admin: 08/07/19 09:36 Dose: 60 mg Ezetimibe (Zetia) 10 mg PO DAILY [facility] Last Admin: 08/12/19 09:57 Dose: 10 mg Admin: 08/11/19 09:25 Dose: 10 mg Admin: 08/10/19 08:35 Dose: 10 mg Admin: 08/09/19 09:44 Dose: 10 mg Admin: 08/08/19 09:20 Dose: 10 mg Admin: 08/07/19 09:40 Dose: 10 mg Folic Acid (Folic Acid) 1 mg PO DAILY [facility] Last Admin: 08/12/19 09:55 Dose: 1 mg Admin: 08/11/19 09:24 Dose: 1 mg Admin: 08/10/19 08:36 Dose: 1 mg Admin: 08/09/19 09:44 Dose: 1 mg Admin: 08/08/19 09:18 Dose: 1 mg Admin: 08/07/19 09:40 Dose: 1 mg Gemfibrozil (Lopid) 600 mg PO DAILY [facility] Last Admin: 08/12/19 09:57 Dose: 600 mg Admin: 08/11/19 09:23 Dose: 600 mg Admin: 08/10/19 08:35 Dose: 600 mg Admin: 08/09/19 09:44 Dose: 600 mg Admin: 08/08/19 09:19 Dose: 600 mg Admin: 08/07/19 09:37 Dose: 600 mg Losartan Potassium (Cozaar) 50 mg PO DAILY [facility] Last Admin: 08/12/19 09:56 Dose: 50 mg Admin: 08/11/19 09:23 Dose: 50 mg Admin: 08/10/19 08:32 Dose: 50 mg Admin: 08/09/19 09:41 Dose: 50 mg Admin: 08/08/19 09:17 Dose: 50 mg Admin: 08/07/19 09:38 Dose: 50 mg Morphine Sulfate (Morphine) 2 mg IVPUSH Q2H PRN PRN Reason: Breakthrough Pain Naloxone HCl (Narcan) 0.1 mg IVPUSH Q5M PRN PRN Reason: Oversedation Ondansetron HCl (Zofran) 4 mg IVPUSH Q6H PRN PRN Reason: Nausea/Vomiting Last Admin: 08/07/19 11:10 Dose: 4 mg Fexofenadine Hcl 180 (Mg) 0 each PO DAILY [facility] Last Admin: 08/12/19 09:59 Dose: 1 each Admin: 08/11/19 09:34 Dose: 1 each Admin: 08/10/19 08:37 Dose: 1 each Admin: 08/09/19 09:48 Dose: 1 each Admin: 08/08/19 15:02 Dose: 1 each Levocetirizine Dihydrochloride [ Xyzal] 5 Mg 0 each PO DAILY [facility] Last Admin: 08/12/19 09:59 Dose: 1 each Admin: 08/11/19 09:34 Dose: 1 each Admin: 08/10/19 08:37 Dose: 1 each Admin: 08/09/19 09:48 Dose: 1 each Admin: 08/08/19 15:04 Dose: 1 each Propranolol HCl (Inderal La) 120 mg PO DAILY [facility] Last Admin: 08/12/19 09:55 Dose: 120 mg Admin: 08/11/19 09:24 Dose: 120 mg Admin: 08/10/19 08:33 Dose: 120 mg Admin: 08/09/19 09:40 Dose: 120 mg Admin: 08/08/19 09:19 Dose: 120 mg Admin: 08/07/19 09:35 Dose: 120 mg Senna (Senna) 8.6 mg PO BID PRN PRN Reason: Constipation - Assessment Assessment (Free Text/Narrative):: POD#6 - left [facility] - Plan Plan (Free Text/Narrative):: 1. The pt is awaiting [facility] placement. 2. The pt is doing well re: [facility] rehabilitation. 3. Medical management per Hospitalist service. The pt's case was discussed with Dr. Garza.
[2019-08-13] MEDS: Losartan 25 MG Tab PO SCH (08:36)
[2019-08-13] MEDS: Folic Acid 1 MG Tab PO SCH (08:37)
[2019-08-13] MEDS: DULoxetine 30 MG Cap PO SCH (08:37)
[2019-08-13] MEDS: Aspirin 325 MG Tab.EC PO SCH (08:37)
[2019-08-13] MEDS: Propranolol 60 MG Cap.ER PO SCH (08:37)
[2019-08-13] MEDS: Gemfibrozil 600 MG Tab PO SCH (08:37)
[2019-08-13] MEDS: Docusate Sodium 100 MG Cap PO SCH (08:37)
[2019-08-13] MEDS: Ezetimibe 10 MG Tab PO SCH (08:37)
[2019-08-13] MEDS: amLODIPine 5 MG Tab PO SCH (08:37)
[2019-08-13 08:44] VITALS: BP 136/72; PULSE 78
--- NOTE | 2019-08-13 09:53 | PCM.SURGPN ---
- General Info Date of Service: 08/13/19 POD#: 7 Functional Status: Reports: Pain Controlled, Tolerating Diet, Ambulating, Urinating, Incentive Spirometry, Other (The pt states she feels "really good" and is prepared for discharge.) - Patient Data Vitals - Most Recent: Last Vital Signs Temp 97.3 F 08/13/19 07:57 Pulse 70 08/13/19 07:57 Resp 16 08/13/19 07:57 BP 158/89 H 08/13/19 08:37 Pulse Ox 96 08/13/19 07:57 Orthostatic Blood Pressure [ 110/78 Sitting] Orthostatic Blood Pressure [ 122/88 Standing] Orthostatic Blood Pressure [ 103/68 Supine] Weight - Most Recent: 206 lb 3.2 oz I&O - Last 24 Hours: Intake & Output 08/12/19 08/13/19 08/13/19 22:59 06:59 14:59 Intake Total 877 800 Output Total 950 Balance 877 -150 Med Orders - Current: Current Medications Hydrocodone Bitart/Acetaminophen (Berwick 325-5 Mg) 1 - 2 tab PO Q6H PRN PRN Reason: Pain Last Admin: 08/12/19 20:43 Dose: 1 tab Amlodipine Besylate (Norvasc) 5 mg PO DAILY [facility] Last Admin: 08/13/19 08:37 Dose: 5 mg Aspirin (Ecotrin) 325 mg PO BID [facility] Last Admin: 08/13/19 08:37 Dose: 325 mg Bisacodyl (Dulcolax) 5 mg PO DAILY PRN PRN Reason: Constipation Last Admin: 08/08/19 21:05 Dose: 5 mg Docusate Sodium (Colace) 100 mg PO BID [facility] Last Admin: 08/13/19 08:37 Dose: 100 mg Duloxetine HCl (Cymbalta) 60 mg PO DAILY [facility] Last Admin: 08/13/19 08:37 Dose: 60 mg Ezetimibe (Zetia) 10 mg PO DAILY [facility] Last Admin: 08/13/19 08:37 Dose: 10 mg Folic Acid (Folic Acid) 1 mg PO DAILY [facility] Last Admin: 08/13/19 08:37 Dose: 1 mg Gemfibrozil (Lopid) 600 mg PO DAILY [facility] Last Admin: 08/13/19 08:37 Dose: 600 mg Losartan Potassium (Cozaar) 50 mg PO DAILY [facility] Last Admin: 08/13/19 08:36 Dose: 50 mg Morphine Sulfate (Morphine) 2 mg IVPUSH Q2H PRN PRN Reason: Breakthrough Pain Naloxone HCl (Narcan) 0.1 mg IVPUSH Q5M PRN PRN Reason: Oversedation Ondansetron HCl (Zofran) 4 mg IVPUSH Q6H PRN PRN Reason: Nausea/Vomiting Last Admin: 08/07/19 11:10 Dose: 4 mg Fexofenadine Hcl 180 (Mg) 0 each PO DAILY [facility] Last Admin: 08/13/19 08:38 Dose: 1 each Levocetirizine Dihydrochloride [ Xyzal] 5 Mg 0 each PO DAILY [facility] Last Admin: 08/13/19 08:38 Dose: 1 each Propranolol HCl (Inderal La) 120 mg PO DAILY [facility] Last Admin: 08/13/19 08:37 Dose: 120 mg Senna (Senna) 8.6 mg PO BID PRN PRN Reason: Constipation Discontinued Medications Acetaminophen (Tylenol) 975 mg PO ONETIME [facility] Stop: 08/06/19 16:00 Acetaminophen (Tylenol) 975 mg PO ONETIME [facility] Stop: 08/06/19 14:00 Last Admin: 08/06/19 10:31 Dose: 975 mg Bupivacaine HCl (Sensorcaine-Mpf 0.25%) Confirm Administered Dose 30 ml .ROUTE .STK-MED ONE Stop: 08/06/19 10:23 Last Admin: 08/06/19 12:27 Dose: 30 ml Cefazolin Sodium (Ancef) Confirm Administered Dose 2 gm .ROUTE .STK-MED ONE Stop: 08/06/19 09:52 Last Admin: 08/06/19 12:23 Dose: 2 gm Cefazolin Sodium (Ancef) Confirm Administered Dose 2 gm .ROUTE .STK-MED ONE Stop: 08/06/19 10:22 Clonidine HCl (Duraclon) Confirm Administered Dose 1,000 mcg .ROUTE .STK-MED ONE Stop: 08/06/19 11:32 Morphine Sulfate 8 mg/Epinephrine HCl 0.3 mg/Cefuroxime Sodium 750 mg/Ketorolac Tromethamine 30 mg/Sodium Chloride 7.9 ml 0 mg .XX ONETIME ONE Stop: 08/06/19 10:01 Last Admin: 08/06/19 12:27 Dose: 788.3 mg Famotidine (Pepcid) 20 mg PO Q12H [facility] Fentanyl (Sublimaze) Confirm Administered Dose 100 mcg .ROUTE .STK-MED ONE Stop: 08/06/19 09:49 Glycopyrrolate () Confirm Administered Dose 1 mg .ROUTE .STK-MED ONE Stop: 08/06/19 12:06 Lactated Ringer's (Ringers, Lactated) 1,000 mls @ 125 mls/hr IV ASDIRECTED [facility] Stop: 08/06/19 23:00 Last Admin: 08/06/19 10:40 Dose: 125 mls/hr Cefazolin Sodium/Dextrose 2 gm (/ Premix) 50 mls @ 100 mls/hr IV Q8H [facility] Stop: 08/07/19 10:59 Last Admin: 08/07/19 09:44 Dose: 100 mls/hr Lidocaine HCl (Xylocaine-Mpf 1%) Confirm Administered Dose 4 mls @ as directed .ROUTE .STK-MED ONE Stop: 08/06/19 09:50 Vancomycin HCl 1 gm/Vancomycin HCl 500 mg/ Sodium Chloride 500 mls @ 250 mls/ hr IV ONETIME [facility] Stop: 08/06/19 12:59 Last Admin: 08/06/19 11:05 Dose: 250 mls/hr Lactated Ringer's (Ringers, Lactated) Confirm Administered Dose 1,000 mls @ as directed .ROUTE .STK-MED ONE Stop: 08/06/19 12:54 Lactated Ringer's (Ringers, Lactated) 1,000 mls @ 999 mls/hr IV .BOLUS ONE Stop: 08/07/19 06:54 Last Admin: 08/07/19 06:02 Dose: 999 mls/hr Lactated Ringer's (Ringers, Lactated) 1,000 mls @ 200 mls/hr IV ASDIRECTED [facility] Stop: 08/07/19 10:59 Last Admin: 08/07/19 07:37 Dose: 200 mls/hr Iodine (Iodine 2% Mild Tincture) Confirm Administered Dose 30 ml .ROUTE .STK- MED ONE Stop: 08/06/19 10:23 Last Admin: 08/06/19 12:21 Dose: 18 ml Lidocaine HCl (Xylocaine-Mpf 1%) Confirm Administered Dose 5 ml .ROUTE .STK-MED ONE Stop: 08/06/19 11:32 Lidocaine/Sodium Bicarbonate (Buffered Lidocaine 1% In Ns 8.4%) 0.25 ml IDERM ONETIME PRN PRN Reason: Prior to IV Start Stop: 08/06/19 18:00 Last Admin: 08/06/19 10:39 Dose: 0.25 ml Midazolam HCl (Versed 1 Mg/Ml) Confirm Administered Dose 2 mg .ROUTE .STK-MED ONE Stop: 08/06/19 09:51 Miscellaneous Medication (Phenylephrine 1 Mg/10 Ml-Ns) Confirm Administered Dose 1 mg IV .STK-MED ONE Stop: 08/06/19 12:28 Miscellaneous Medication (Phenylephrine 1 Mg/10 Ml-Ns) Confirm Administered Dose 1 mg IV .STK-MED ONE Stop: 08/06/19 12:54 Naloxone HCl (Narcan) 0.4 mg IVPUSH Q3M [facility] Stop: 08/07/19 20:22 Last Admin: 08/07/19 21:01 Dose: 0.4 mg Oxycodone HCl (Oxycontin) 10 mg PO ONETIME [facility] Stop: 08/06/19 16:00 Oxycodone HCl (Oxycontin) 10 mg PO ONETIME [facility] Stop: 08/06/19 14:00 Last Admin: 08/06/19 10:31 Dose: 10 mg Oxycodone/Acetaminophen (Percocet 325-5 Mg) 1 - 2 tab PO Q4H PRN PRN Reason: Pain Last Admin: 08/06/19 22:28 Dose: 2 tab Pantoprazole Sodium (Protonix) 40 mg PO DAILY [facility] Last Admin: 08/11/19 09:24 Dose: 40 mg Fexofenadine Hcl 180 (Mg) 0 each PO DAILY [facility] Last Admin: 08/07/19 09:42 Dose: Not Given Levocetirizine Dihydrochloride [ Xyzal] 5 Mg 0 each PO DAILY [facility] Last Admin: 08/07/19 09:42 Dose: Not Given Pregabalin (Lyrica) 50 mg PO ONETIME [facility] Stop: 08/06/19 16:00 Pregabalin (Lyrica) 50 mg PO ONETIME [facility] Stop: 08/06/19 14:00 Last Admin: 08/06/19 10:31 Dose: 50 mg Propofol (Diprivan 20 Ml) Confirm Administered Dose 200 mg .ROUTE .STK-MED ONE Stop: 08/06/19 09:50 Sodium Chloride (Saline Flush) 10 ml FLUSH ASDIRECTED PRN PRN Reason: Keep Vein Open Stop: 08/06/19 18:00 Sodium Phosphate (Neutra-Phos) 250 mg PO BID [facility] Stop: 08/10/19 21:01 Last Admin: 08/10/19 21:00 Dose: 250 mg Tranexamic Acid (Cyklokapron) Confirm Administered Dose 1,000 mg .ROUTE .STK- MED ONE Stop: 08/06/19 10:22 Last Admin: 08/06/19 12:28 Dose: 1,000 mg Vancomycin HCl (Vancomycin) Confirm Administered Dose 1 gm .ROUTE .STK-MED ONE Stop: 08/06/19 10:23 Last Admin: 08/06/19 12:28 Dose: 1 gm - Exam Wound/Incisions: Dressing Dry and Intact General: Alert, Cooperative, No Acute Distress Lungs: Normal Respiratory Effort Extremities: Other (NVS intact for BLE. Deborah's negative.) Sepsis Event Note - Evaluation Sepsis Screening Result: No Definite Risk - Focused Exam Vital Signs: Vital Signs Temp Temp Pulse Pulse Resp BP BP 08/13/19 08:37 158/89 H 08/13/19 08:36 158/89 H 08/13/19 07:57 97.3 F 70 16 158/89 H 08/13/19 04:15 97.8 F 78 12 136/72 Pulse Ox 08/13/19 08:37 08/13/19 08:36 08/13/19 07:57 96 08/13/19 04:15 98 Date Exam was Performed: 08/13/19 Time Exam was Performed: 09:51 - Problem List Review Problem List Initiated/Reviewed/Updated: Yes - My Orders Last 24 Hours: Medication Orders Hydrocodone Bitart/Acetaminophen (Berwick 325-5 Mg) 1 - 2 tab PO Q6H PRN PRN Reason: Pain Last Admin: 08/12/19 20:43 Dose: 1 tab Admin: 08/11/19 11:40 Dose: 2 tab Admin: 08/10/19 21:01 Dose: 1 tab Admin: 08/10/19 08:36 Dose: 1 tab Admin: 08/09/19 20:45 Dose: 1 tab Admin: 08/08/19 15:04 Dose: 1 tab Admin: 08/08/19 06:33 Dose: 1 tab Admin: 08/07/19 22:10 Dose: 1 tab Admin: 08/07/19 09:52 Dose: 1 tab Amlodipine Besylate (Norvasc) 5 mg PO DAILY [facility] Last Admin: 08/13/19 08:37 Dose: 5 mg Admin: 08/12/19 09:57 Dose: 5 mg Admin: 08/11/19 09:23 Dose: 5 mg Admin: 08/10/19 08:36 Dose: 5 mg Admin: 08/09/19 09:42 Dose: 5 mg Admin: 08/08/19 09:18 Dose: 5 mg Admin: 08/07/19 09:40 Dose: 5 mg Aspirin (Ecotrin) 325 mg PO BID [facility] Last Admin: 08/13/19 08:37 Dose: 325 mg Admin: 08/12/19 20:43 Dose: 325 mg Admin: 08/12/19 09:56 Dose: 325 mg Admin: 08/11/19 21:25 Dose: 325 mg Admin: 08/11/19 09:24 Dose: 325 mg Admin: 08/10/19 21:00 Dose: 325 mg Admin: 08/10/19 08:36 Dose: 325 mg Admin: 08/09/19 20:18 Dose: 325 mg Admin: 08/09/19 09:42 Dose: 325 mg Admin: 08/08/19 21:05 Dose: 325 mg Admin: 08/08/19 09:16 Dose: 325 mg Admin: 08/07/19 21:07 Dose: 325 mg Admin: 08/07/19 09:37 Dose: 325 mg Bisacodyl (Dulcolax) 5 mg PO DAILY PRN PRN Reason: Constipation Last Admin: 08/08/19 21:05 Dose: 5 mg Docusate Sodium (Colace) 100 mg PO BID [facility] Last Admin: 08/13/19 08:37 Dose: 100 mg Admin: 08/12/19 20:43 Dose: 100 mg Admin: 08/12/19 09:56 Dose: 100 mg Admin: 08/11/19 21:25 Dose: 100 mg Admin: 08/11/19 09:25 Dose: 100 mg Admin: 08/10/19 21:00 Dose: 100 mg Admin: 08/10/19 08:34 Dose: 100 mg Admin: 08/09/19 20:18 Dose: 100 mg Admin: 08/09/19 09:44 Dose: 100 mg Admin: 08/08/19 21:05 Dose: 100 mg Admin: 08/08/19 09:16 Dose: 100 mg Admin: 08/07/19 21:08 Dose: 100 mg Admin: 08/07/19 09:38 Dose: 100 mg Admin: 08/06/19 21:50 Dose: 100 mg Duloxetine HCl (Cymbalta) 60 mg PO DAILY [facility] Last Admin: 08/13/19 08:37 Dose: 60 mg Admin: 08/12/19 09:55 Dose: 60 mg Admin: 08/11/19 09:24 Dose: 60 mg Admin: 08/10/19 08:34 Dose: 60 mg Admin: 08/09/19 09:41 Dose: 60 mg Admin: 08/08/19 09:16 Dose: 60 mg Admin: 08/07/19 09:36 Dose: 60 mg Ezetimibe (Zetia) 10 mg PO DAILY [facility] Last Admin: 08/13/19 08:37 Dose: 10 mg Admin: 08/12/19 09:57 Dose: 10 mg Admin: 08/11/19 09:25 Dose: 10 mg Admin: 08/10/19 08:35 Dose: 10 mg Admin: 08/09/19 09:44 Dose: 10 mg Admin: 08/08/19 09:20 Dose: 10 mg Admin: 08/07/19 09:40 Dose: 10 mg Folic Acid (Folic Acid) 1 mg PO DAILY [facility] Last Admin: 08/13/19 08:37 Dose: 1 mg Admin: 08/12/19 09:55 Dose: 1 mg Admin: 08/11/19 09:24 Dose: 1 mg Admin: 08/10/19 08:36 Dose: 1 mg Admin: 08/09/19 09:44 Dose: 1 mg Admin: 08/08/19 09:18 Dose: 1 mg Admin: 08/07/19 09:40 Dose: 1 mg Gemfibrozil (Lopid) 600 mg PO DAILY [facility] Last Admin: 08/13/19 08:37 Dose: 600 mg Admin: 08/12/19 09:57 Dose: 600 mg Admin: 08/11/19 09:23 Dose: 600 mg Admin: 08/10/19 08:35 Dose: 600 mg Admin: 08/09/19 09:44 Dose: 600 mg Admin: 08/08/19 09:19 Dose: 600 mg Admin: 08/07/19 09:37 Dose: 600 mg Losartan Potassium (Cozaar) 50 mg PO DAILY [facility] Last Admin: 08/13/19 08:36 Dose: 50 mg Admin: 08/12/19 09:56 Dose: 50 mg Admin: 08/11/19 09:23 Dose: 50 mg Admin: 08/10/19 08:32 Dose: 50 mg Admin: 08/09/19 09:41 Dose: 50 mg Admin: 08/08/19 09:17 Dose: 50 mg Admin: 08/07/19 09:38 Dose: 50 mg Morphine Sulfate (Morphine) 2 mg IVPUSH Q2H PRN PRN Reason: Breakthrough Pain Naloxone HCl (Narcan) 0.1 mg IVPUSH Q5M PRN PRN Reason: Oversedation Ondansetron HCl (Zofran) 4 mg IVPUSH Q6H PRN PRN Reason: Nausea/Vomiting Last Admin: 08/07/19 11:10 Dose: 4 mg Fexofenadine Hcl 180 (Mg) 0 each PO DAILY [facility] Last Admin: 08/13/19 08:38 Dose: 1 each Admin: 08/12/19 09:59 Dose: 1 each Admin: 08/11/19 09:34 Dose: 1 each Admin: 08/10/19 08:37 Dose: 1 each Admin: 08/09/19 09:48 Dose: 1 each Admin: 08/08/19 15:02 Dose: 1 each Levocetirizine Dihydrochloride [ Xyzal] 5 Mg 0 each PO DAILY [facility] Last Admin: 08/13/19 08:38 Dose: 1 each Admin: 08/12/19 09:59 Dose: 1 each Admin: 08/11/19 09:34 Dose: 1 each Admin: 08/10/19 08:37 Dose: 1 each Admin: 08/09/19 09:48 Dose: 1 each Admin: 08/08/19 15:04 Dose: 1 each Propranolol HCl (Inderal La) 120 mg PO DAILY [facility] Last Admin: 08/13/19 08:37 Dose: 120 mg Admin: 08/12/19 09:55 Dose: 120 mg Admin: 08/11/19 09:24 Dose: 120 mg Admin: 08/10/19 08:33 Dose: 120 mg Admin: 08/09/19 09:40 Dose: 120 mg Admin: 08/08/19 09:19 Dose: 120 mg Admin: 08/07/19 09:35 Dose: 120 mg Senna (Senna) 8.6 mg PO BID PRN PRN Reason: Constipation - Assessment Assessment (Free Text/Narrative):: POD#7 - left RAGHAVENDRA - Plan Plan (Free Text/Narrative):: 1. Bandage changed and no concerns noted with hip incision. 2. RAGHAVENDRA precautions. WBAT. 3. Discharge to [place] for continued Bi-Pap use. 4. Further orders per Hospitalist service. The pt's case was discussed with Dr. Garza.
--- NOTE | 2019-08-13 11:18 | PCM.CONSN ---
- General Info Date of Service: 08/13/19 Admission Dx/Problem (Free Text): Admission Diagnosis/Problem Admission Diagnosis/Problem Osteoarthritis of hip Functional Status: Reports: Pain Controlled, Tolerating Diet, Ambulating, Urinating, Incentive Spirometry. Denies: New Symptoms - Review of Systems General: Reports: No Symptoms. Denies: Fever, Weakness, Fatigue, Malaise, Chills HEENT: Reports: No Symptoms. Denies: Headaches, Sore Throat Pulmonary: Reports: No Symptoms. Denies: Shortness of Breath, Pleuritic Chest Pain, Cough, Sputum, Wheezing Cardiovascular: Reports: No Symptoms. Denies: Chest Pain, Palpitations, Dyspnea on Exertion Gastrointestinal: Reports: No Symptoms. Denies: Abdominal Pain, Constipation, Diarrhea, Nausea, Vomiting Genitourinary: Reports: No Symptoms. Denies: Pain Musculoskeletal: Reports: Leg Pain (greatly improved ) Skin: Reports: No Symptoms Neurological: Reports: Difficulty Walking, Gait Disturbance. Denies: Confusion , Numbness, Pre-Existing Deficit, Tingling Psychiatric: Reports: No Symptoms - Patient Data Vitals - Most Recent: Last Vital Signs Temp 97.3 F 08/13/19 07:57 Pulse 70 08/13/19 07:57 Resp 16 08/13/19 07:57 BP 158/89 H 08/13/19 08:37 Pulse Ox 96 08/13/19 07:57 Orthostatic Blood Pressure [ 110/78 Sitting] Orthostatic Blood Pressure [ 122/88 Standing] Orthostatic Blood Pressure [ 103/68 Supine] Weight - Most Recent: 206 lb 3.2 oz I&O - Last 24 Hours: Intake & Output 08/12/19 08/13/19 08/13/19 22:59 06:59 14:59 Intake Total 877 800 Output Total 950 Balance 877 -150 Med Orders - Current: Current Medications Hydrocodone Bitart/Acetaminophen ([place] 325-5 Mg) 1 - 2 tab PO Q6H PRN PRN Reason: Pain Last Admin: 08/12/19 20:43 Dose: 1 tab Amlodipine Besylate (Norvasc) 5 mg PO DAILY [facility] Last Admin: 08/13/19 08:37 Dose: 5 mg Aspirin (Ecotrin) 325 mg PO BID ALEXANDER Last Admin: 08/13/19 08:37 Dose: 325 mg Bisacodyl (Dulcolax) 5 mg PO DAILY PRN PRN Reason: Constipation Last Admin: 08/08/19 21:05 Dose: 5 mg Docusate Sodium (Colace) 100 mg PO BID [facility] Last Admin: 08/13/19 08:37 Dose: 100 mg Duloxetine HCl (Cymbalta) 60 mg PO DAILY [facility] Last Admin: 08/13/19 08:37 Dose: 60 mg Ezetimibe (Zetia) 10 mg PO DAILY [facility] Last Admin: 08/13/19 08:37 Dose: 10 mg Folic Acid (Folic Acid) 1 mg PO DAILY [facility] Last Admin: 08/13/19 08:37 Dose: 1 mg Gemfibrozil (Lopid) 600 mg PO DAILY [facility] Last Admin: 08/13/19 08:37 Dose: 600 mg Losartan Potassium (Cozaar) 50 mg PO DAILY [facility] Last Admin: 08/13/19 08:36 Dose: 50 mg Morphine Sulfate (Morphine) 2 mg IVPUSH Q2H PRN PRN Reason: Breakthrough Pain Naloxone HCl (Narcan) 0.1 mg IVPUSH Q5M PRN PRN Reason: Oversedation Ondansetron HCl (Zofran) 4 mg IVPUSH Q6H PRN PRN Reason: Nausea/Vomiting Last Admin: 08/07/19 11:10 Dose: 4 mg Fexofenadine Hcl 180 (Mg) 0 each PO DAILY [facility] Last Admin: 08/13/19 08:38 Dose: 1 each Levocetirizine Dihydrochloride [ Xyzal] 5 Mg 0 each PO DAILY [facility] Last Admin: 08/13/19 08:38 Dose: 1 each Propranolol HCl (Inderal La) 120 mg PO DAILY [facility] Last Admin: 08/13/19 08:37 Dose: 120 mg Senna (Senna) 8.6 mg PO BID PRN PRN Reason: Constipation Discontinued Medications Acetaminophen (Tylenol) 975 mg PO ONETIME [facility] Stop: 08/06/19 16:00 Acetaminophen (Tylenol) 975 mg PO ONETIME [facility] Stop: 08/06/19 14:00 Last Admin: 08/06/19 10:31 Dose: 975 mg Bupivacaine HCl (Sensorcaine-Mpf 0.25%) Confirm Administered Dose 30 ml .ROUTE .STK-MED ONE Stop: 08/06/19 10:23 Last Admin: 08/06/19 12:27 Dose: 30 ml Cefazolin Sodium (Ancef) Confirm Administered Dose 2 gm .ROUTE .STK-MED ONE Stop: 08/06/19 09:52 Last Admin: 08/06/19 12:23 Dose: 2 gm Cefazolin Sodium (Ancef) Confirm Administered Dose 2 gm .ROUTE .STK-MED ONE Stop: 08/06/19 10:22 Clonidine HCl (Duraclon) Confirm Administered Dose 1,000 mcg .ROUTE .STK-MED ONE Stop: 08/06/19 11:32 Morphine Sulfate 8 mg/Epinephrine HCl 0.3 mg/Cefuroxime Sodium 750 mg/Ketorolac Tromethamine 30 mg/Sodium Chloride 7.9 ml 0 mg .XX ONETIME ONE Stop: 08/06/19 10:01 Last Admin: 08/06/19 12:27 Dose: 788.3 mg Famotidine (Pepcid) 20 mg PO Q12H [facility] Fentanyl (Sublimaze) Confirm Administered Dose 100 mcg .ROUTE .STK-MED ONE Stop: 08/06/19 09:49 Glycopyrrolate () Confirm Administered Dose 1 mg .ROUTE .STK-MED ONE Stop: 08/06/19 12:06 Lactated Ringer's (Ringers, Lactated) 1,000 mls @ 125 mls/hr IV ASDIRECTED [facility] Stop: 08/06/19 23:00 Last Admin: 08/06/19 10:40 Dose: 125 mls/hr Cefazolin Sodium/Dextrose 2 gm (/ Premix) 50 mls @ 100 mls/hr IV Q8H [facility] Stop: 08/07/19 10:59 Last Admin: 08/07/19 09:44 Dose: 100 mls/hr Lidocaine HCl (Xylocaine-Mpf 1%) Confirm Administered Dose 4 mls @ as directed .ROUTE .STK-MED ONE Stop: 08/06/19 09:50 Vancomycin HCl 1 gm/Vancomycin HCl 500 mg/ Sodium Chloride 500 mls @ 250 mls/ hr IV ONETIME ONE Stop: 08/06/19 12:59 Last Admin: 08/06/19 11:05 Dose: 250 mls/hr Lactated Ringer's (Ringers, Lactated) Confirm Administered Dose 1,000 mls @ as directed .ROUTE .STK-MED ONE Stop: 08/06/19 12:54 Lactated Ringer's (Ringers, Lactated) 1,000 mls @ 999 mls/hr IV .BOLUS ONE Stop: 08/07/19 06:54 Last Admin: 08/07/19 06:02 Dose: 999 mls/hr Lactated Ringer's (Ringers, Lactated) 1,000 mls @ 200 mls/hr IV ASDIRECTED [facility] Stop: 08/07/19 10:59 Last Admin: 08/07/19 07:37 Dose: 200 mls/hr Iodine (Iodine 2% Mild Tincture) Confirm Administered Dose 30 ml .ROUTE .STK- MED ONE Stop: 08/06/19 10:23 Last Admin: 08/06/19 12:21 Dose: 18 ml Lidocaine HCl (Xylocaine-Mpf 1%) Confirm Administered Dose 5 ml .ROUTE .STK-MED ONE Stop: 08/06/19 11:32 Lidocaine/Sodium Bicarbonate (Buffered Lidocaine 1% In Ns 8.4%) 0.25 ml IDERM ONETIME PRN PRN Reason: Prior to IV Start Stop: 08/06/19 18:00 Last Admin: 08/06/19 10:39 Dose: 0.25 ml Midazolam HCl (Versed 1 Mg/Ml) Confirm Administered Dose 2 mg .ROUTE .STK-MED ONE Stop: 08/06/19 09:51 Miscellaneous Medication (Phenylephrine 1 Mg/10 Ml-Ns) Confirm Administered Dose 1 mg IV .STK-MED ONE Stop: 08/06/19 12:28 Miscellaneous Medication (Phenylephrine 1 Mg/10 Ml-Ns) Confirm Administered Dose 1 mg IV .STK-MED ONE Stop: 08/06/19 12:54 Naloxone HCl (Narcan) 0.4 mg IVPUSH Q3M [facility] Stop: 08/07/19 20:22 Last Admin: 08/07/19 21:01 Dose: 0.4 mg Oxycodone HCl (Oxycontin) 10 mg PO ONETIME [facility] Stop: 08/06/19 16:00 Oxycodone HCl (Oxycontin) 10 mg PO ONETIME [facility] Stop: 08/06/19 14:00 Last Admin: 08/06/19 10:31 Dose: 10 mg Oxycodone/Acetaminophen (Percocet 325-5 Mg) 1 - 2 tab PO Q4H PRN PRN Reason: Pain Last Admin: 08/06/19 22:28 Dose: 2 tab Pantoprazole Sodium (Protonix) 40 mg PO DAILY [facility] Last Admin: 08/11/19 09:24 Dose: 40 mg Fexofenadine Hcl 180 (Mg) 0 each PO DAILY [facility] Last Admin: 08/07/19 09:42 Dose: Not Given Levocetirizine Dihydrochloride [ Xyzal] 5 Mg 0 each PO DAILY [facility] Last Admin: 08/07/19 09:42 Dose: Not Given Pregabalin (Lyrica) 50 mg PO ONETIME [facility] Stop: 08/06/19 16:00 Pregabalin (Lyrica) 50 mg PO ONETIME [facility] Stop: 08/06/19 14:00 Last Admin: 08/06/19 10:31 Dose: 50 mg Propofol (Diprivan 20 Ml) Confirm Administered Dose 200 mg .ROUTE .STK-MED ONE Stop: 08/06/19 09:50 Sodium Chloride (Saline Flush) 10 ml FLUSH ASDIRECTED PRN PRN Reason: Keep Vein Open Stop: 08/06/19 18:00 Sodium Phosphate (Neutra-Phos) 250 mg PO BID [facility] Stop: 08/10/19 21:01 Last Admin: 08/10/19 21:00 Dose: 250 mg Tranexamic Acid (Cyklokapron) Confirm Administered Dose 1,000 mg .ROUTE .STK- MED ONE Stop: 08/06/19 10:22 Last Admin: 08/06/19 12:28 Dose: 1,000 mg Vancomycin HCl (Vancomycin) Confirm Administered Dose 1 gm .ROUTE .STK-MED ONE Stop: 08/06/19 10:23 Last Admin: 08/06/19 12:28 Dose: 1 gm - Exam Quality Assessment: DVT Prophylaxis. No: Supplemental Oxygen, Urine Catheter General: Alert, Oriented, Cooperative, No Acute Distress HEENT: Pupils Equal, Pupils Reactive, Mucous Membr. Moist/Danube Neck: Supple, Trachea Midline Lungs: Clear to Auscultation, Normal Respiratory Effort Cardiovascular: Regular Rate, Regular Rhythm GI/Abdominal Exam: Normal Bowel Sounds, Soft, Non-Tender, No Distention (Female) Exam: Deferred Back Exam: Normal Inspection, Full Range of Motion Extremities: Normal Inspection, Normal Range of Motion, Non-Tender, No Pedal Edema, Normal Capillary Refill Peripheral Pulses: 2+: Radial (L), Radial (R), Dorsalis Pedis (L), Dorsalis Pedis (R) Skin: Warm, Dry, Intact Wound/Incisions: Dressing Dry and Intact Neurological: No New Focal Deficit Psy/Mental Status: Alert, Normal Affect, Normal Mood Sepsis Event Note - Evaluation Sepsis Screening Result: No Definite Risk - Focused Exam Vital Signs: Vital Signs Temp Temp Pulse Pulse Resp BP BP 08/13/19 08:37 158/89 H 08/13/19 08:36 158/89 H 08/13/19 07:57 97.3 F 70 16 158/89 H 08/13/19 04:15 97.8 F 78 12 136/72 Pulse Ox 08/13/19 08:37 08/13/19 08:36 08/13/19 07:57 96 08/13/19 04:15 98 Date Exam was Performed: 08/13/19 Time Exam was Performed: 11:10 Consult PN Assessment/Plan POD#: 7 Procedures: Procedures AFTER CATARACT LASER SURGERY (08/17/16) ASSAY OF CREATININE (11/22/13) ASSAY OF MAGNESIUM (11/14/13) BLOOD CULTURE FOR BACTERIA (11/14/13) C-REACTIVE PROTEIN (11/14/13) CHEST X-RAY 2VW FRONTAL&LATL (11/14/13) COMPLETE CBC W/AUTO DIFF WBC (11/14/13) COMPREHEN METABOLIC PANEL (11/14/13) CT HEAD/BRAIN W/O DYE (11/14/13) CULTURE SCREEN ONLY (04/09/18) EMERGENCY DEPT VISIT (09/10/14) GAIT TRAINING THERAPY (11/14/13) HEPATITIS B SURFACE AG IA (09/10/14) HEPATITIS C AB TEST (09/10/14) MEASURE BLOOD OXYGEN LEVEL (11/14/13) MEASURE BLOOD OXYGEN LEVEL (11/14/13) MR ANGIOGRAPHY HEAD W/O DYE (11/14/13) MRI BRAIN STEM W/O & W/DYE (11/14/13) MRI NECK SPINE W/O DYE (11/22/13) PARATHYRD PLANAR W/SPECT&CT (11/18/14) POLYSOM 6/> YRS 4/> BEREKET (12/14/16) PT EVALUATION (11/14/13) ROUTINE VENIPUNCTURE (11/22/13) URINALYSIS AUTO W/SCOPE (11/14/13) URINE BACTERIA CULTURE (11/14/13) WEST NILE VIRUS AB IGM (11/14/13) (1) S/P total hip arthroplasty SNOMED Code(s): 327457406138, 999613634470 Code(s): Z96.649 - PRESENCE OF UNSPECIFIED ARTIFICIAL HIP JOINT Priority: High Current Visit: Yes Qualifiers: Laterality: left Qualified Code(s): Z96.642 - Presence of left artificial hip joint (2) Osteoarthritis SNOMED Code(s): 114437452 Code(s): M19.90 - UNSPECIFIED OSTEOARTHRITIS, UNSPECIFIED SITE Priority: High Current Visit: Yes Qualifiers: Osteoarthritis location: hip Osteoarthritis type: primary Laterality: left Qualified Code(s): M16.12 - Unilateral primary osteoarthritis, left hip (3) Positive result for methicillin resistant Staphylococcus aureus (MRSA) screening SNOMED Code(s): 790922127 Code(s): Z22.322 - CARRIER OR SUSPECTED CARRIER OF METHICILLIN RESIS STAPH Priority: Medium Current Visit: Yes (4) Former smoker SNOMED Code(s): 5382368 Code(s): Z87.891 - PERSONAL HISTORY OF NICOTINE DEPENDENCE Priority: Low Current Visit: No (5) Rheumatoid arthritis SNOMED Code(s): 71953547 Code(s): M06.9 - RHEUMATOID ARTHRITIS, UNSPECIFIED Priority: Low Current Visit: No Qualifiers: Rheumatoid arthritis location: unspecified site Rheumatoid factor presence : unspecified presence Qualified Code(s): M06.9 - Rheumatoid arthritis, unspecified (6) Gout SNOMED Code(s): 81397302 Code(s): M10.9 - GOUT, UNSPECIFIED Priority: Low Current Visit: No Qualifiers: Gout site: unspecified site Gout etiology: unspecified cause Chronicity: unspecified Qualified Code(s): M10.9 - Gout, unspecified (7) Insomnia SNOMED Code(s): 673965946 Code(s): G47.00 - INSOMNIA, UNSPECIFIED Priority: Low Current Visit: No Qualifiers: Insomnia type: unspecified Qualified Code(s): G47.00 - Insomnia, unspecified (8) GERD (gastroesophageal reflux disease) SNOMED Code(s): 291910557 Code(s): K21.9 - GASTRO-ESOPHAGEAL REFLUX DISEASE WITHOUT ESOPHAGITIS Priority: Low Current Visit: No Qualifiers: Esophagitis presence: esophagitis presence not specified Qualified Code(s) : K21.9 - Gastro-esophageal reflux disease without esophagitis (9) Depression SNOMED Code(s): 81164770 Code(s): F32.9 - MAJOR DEPRESSIVE DISORDER, SINGLE EPISODE, UNSPECIFIED Priority: Low Current Visit: No Qualifiers: Depression Type: other depression Qualified Code(s): F32.89 - Other specified depressive episodes (10) Osteoporosis SNOMED Code(s): 48816604 Code(s): M81.0 - AGE-RELATED OSTEOPOROSIS W/O CURRENT PATHOLOGICAL FRACTURE Priority: Low Current Visit: No Qualifiers: Osteoporosis type: unspecified Presence of current pathological fracture: unspecified Qualified Code(s): M81.0 - Age-related osteoporosis without current pathological fracture (11) TMJ (temporomandibular joint syndrome) SNOMED Code(s): 87245124 Code(s): M26.609 - UNSPECIFIED TMJ JOINT DISORDER, UNSPECIFIED SIDE Priority: Low Current Visit: No (12) HTN (hypertension) SNOMED Code(s): 02509780 Code(s): I10 - ESSENTIAL (PRIMARY) HYPERTENSION Priority: Medium Current Visit: No Qualifiers: Hypertension type: unspecified Qualified Code(s): I10 - Essential (primary ) hypertension (13) Anemia SNOMED Code(s): 333411946 Code(s): D64.9 - ANEMIA, UNSPECIFIED Priority: Low Current Visit: No Qualifiers: Anemia type: unspecified type Qualified Code(s): D64.9 - Anemia, unspecified (14) Headache SNOMED Code(s): 77306627 Code(s): R51 - HEADACHE Priority: Low Current Visit: No Qualifiers: Headache type: unspecified Headache chronicity pattern: unspecified pattern Intractability: not intractable Qualified Code(s): R51 - Headache (15) Intracranial vascular stenosis SNOMED Code(s): 30370398 Code(s): I67.9 - CEREBROVASCULAR DISEASE, UNSPECIFIED Priority: Low Current Visit: No (16) Vitamin D deficiency SNOMED Code(s): 16913119 Code(s): E55.9 - VITAMIN D DEFICIENCY, UNSPECIFIED Priority: Low Current Visit: No (17) Rash SNOMED Code(s): 664604079 Code(s): R21 - RASH AND OTHER NONSPECIFIC SKIN ERUPTION Priority: Low Current Visit: No (18) HLD (hyperlipidemia) SNOMED Code(s): 34919465 Code(s): E78.5 - HYPERLIPIDEMIA, UNSPECIFIED Priority: Low Current Visit : No Qualifiers: Hyperlipidemia type: unspecified Qualified Code(s): E78.5 - Hyperlipidemia , unspecified (19) Sleep apnea SNOMED Code(s): 96147706 Code(s): G47.30 - SLEEP APNEA, UNSPECIFIED Priority: Low Current Visit: No Qualifiers: Sleep apnea type: unspecified type Qualified Code(s): G47.30 - Sleep apnea , unspecified (20) Basal cell carcinoma (BCC) SNOMED Code(s): 889328068 Code(s): C44.91 - BASAL CELL CARCINOMA OF SKIN, UNSPECIFIED Priority: Low Current Visit: No Qualifiers: Basal cell carcinoma location: unspecified site Qualified Code(s): C44.91 - Basal cell carcinoma of skin, unspecified (21) Cervical radiculopathy SNOMED Code(s): 41837226 Code(s): M54.12 - RADICULOPATHY, CERVICAL REGION Priority: Low Current Visit: No (22) CKD (chronic kidney disease) stage 3, GFR 30-59 ml/min SNOMED Code(s): 943937372 Code(s): N18.3 - CHRONIC KIDNEY DISEASE, STAGE 3 (MODERATE) Priority: Medium Current Visit: Yes (23) Postoperative urinary retention SNOMED Code(s): 642516073 Code(s): N99.89 - OTH POSTPROCEDURAL COMPLICATIONS AND DISORDERS OF SYS; R33.8 - OTHER RETENTION OF URINE Priority: High Current Visit: Yes (24) Altered mental state SNOMED Code(s): 143015771 Code(s): R41.82 - ALTERED MENTAL STATUS, UNSPECIFIED Priority: High Current Visit: Yes Qualifiers: Altered mental status type: unspecified Qualified Code(s): R41.82 - Altered mental status, unspecified (25) Hypercapnemia SNOMED Code(s): 20587674 Code(s): R06.89 - OTHER ABNORMALITIES OF BREATHING Priority: High Current Visit: Yes (26) Acute hypercapnic respiratory failure SNOMED Code(s): 651373881 Code(s): J96.02 - ACUTE RESPIRATORY FAILURE WITH HYPERCAPNIA Priority: High Current Visit: Yes (27) Hypophosphatemia SNOMED Code(s): 7084764 Code(s): E83.39 - OTHER DISORDERS OF PHOSPHORUS METABOLISM Priority: High Current Visit: Yes Problem List Initiated/Reviewed/Updated: Yes Plan: I/P: Acute: S/P left total hip arthroplasty - post-operative day 7 -DVT prophylaxis and pain management per primary care team -PT/OT -IS/RT -Monitor oxygen saturation -Titrate oxygen as needed -Home medications reviewed -Vital signs stable -Monitor labs -Pre-operative Hgb was 13.2; Now 10.7-->9.8-->10.1 -Pre-operative GFR was 38; Now 22-->35-->50-->greater than 60 -Pre-operative creatinine was 1.37; Now 2.2-->1.5-->1.1-->0.9 -Pre-operative BUN was 27; Now 28-->26-->22-->21 Osteoarthritis of left hip -Pain management per primary care team S/P Acute weakness -2/2 anesthesia -PT/OT -Caution with pain medications -Narcan given S/P NOREEN -Kidney function labs as above -Discontinued IV fluids -Improved urine output - monitor S/P Post-operative urinary retention -IV fluids given -Straight catheter per protocol -Monitor Hypercapnia with acute respiratory failure, improved -A&Ox3, has been sleepy at times but not today -Likely exacerbated by anesthesia -ABG shows metabolic acidosis -Underlying BETTINA - reportedly underwent one of the 2 stages of sleep study -BiPAP -O2 as needed -RT to monitor -IS when not on BiPAP S/P Hypophosphatemia -Supplement Chronic: Positive MRSA Screen RA Gout Insomnia GERD Depression Osteoporosis TMJ HTN Anemia Headache Intracranial vascular stenosis Vitamin D deficiency Rash HLD Untreated Sleep Apnea CKD Cervical radiculopathy Basal cell carcinoma Plan: CM for discharge planning SW for possible SNF placement GI prophylaxis 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 Her PCP is Dr. Dias. From a hospitalist standpoint Zamzam is doing very well. She has been wearing her BiPAP at night and her mental status has greatly improved. She is not sleepy anymore or falling asleep while talking. She has been up ambulating and working with therapies. They were recommending SNF placement but she is doing well now and they are recommending home with outpatient PT. She has urinated and had several BMs. She is off of oxygen. She did have a cognitive evaluation which showed mild cognitive communication impairment. We were able to arrange for her to self-pay for BiPAP until she can have a sleep study scheduled. She should follow-up with her PCP within 3-5 days of discharge to re-check hypercapnia and arrange a sleep study. She was instructed to wear BiPAP at night and when resting. She should continue to utilize her IS throughout the day. She is cleared for discharge pending primary team and PT/OT agreement. Thank you for allowing us to participate in the care of this patient!! Will need outpatient sleep study after discharge.
--- NOTE | 2019-08-14 17:17 | PCM.DCSUM1 ---
Discharge Summary - Hospital Course Brief History: Zamzam is a 69 yo female who underwent left RAGHAVENDRA with Dr. Garza on 08-06-2019. The procedure was completed under spinal anesthesia with sedation. The pt tolerated the procedure well and was admitted to the Medical-Surgical Unit. Medical management was provided by the Hospitalist service. The pt's Hospital course was remarkable for significant post-operative weakness causing difficulty progressing with therapies, urinary retention, hypercapnia, and NOREEN. The pt's status was closely monitored and treated by the Hospitalist service. The pt had serial ABGs completed and was placed on Bi-Pap. The pt's status improved during her Hospital stay. The pt's Hgb on POD#1 was 10.7. On POD#1, 325mg ASA BID was initiated for VTE prophylaxis. SCDs and TEDs were also ordered. A Mepilex dressing was placed at the incision site at the time of surgery and remained clean and dry. The pt participated in P.T. and O.T. and it was suspected the pt may require d/c to [place] for continued rehabilitation, however, she met inpt therapy goals prior to d/c and was allowed to d/c to home. The pt followed the RAGHAVENDRA precautions. The pt was allowed to WBAT and used a FWW for mobility. On POD#7, the pt was deemed appropriate to discharge to home with her family. Diagnosis: Stroke: No - Discharge Data Discharge Date: 08/13/19 Discharge Disposition: Home, Self-Care 01 Condition: Good - Referral to Home Health Primary Care Physician: Cathie Mcfarland MD - Patient Summary/Data Operative Procedure(s) Performed: left total hip arthroplasty Consults: Consultations 08/06/19 06:46 OT Evaluation and Treatment [CONS] Routine PT Evaluation and Treatment [CONS] Routine 08/06/19 06:47 Consult to Physician [CONS] Routine 08/08/19 09:45 Consult to Case Management/Tire Technician [CONS] Routine 08/08/19 13:14 Consult to Respiratory Therapy [Respiratory Care Assess and Treatment] [CONS] Routine 08/09/19 10:59 Consult to Speech Language Pathology [AIR COMPRESSOR ENGINEER Evaluation and Treatment] [CONS] Routine - Patient Instructions Diet: Usual Diet as Tolerated Activity: Apply Ice, As Tolerated, Elevate Extremity, Full Weight Bearing Activity, Other: Follow the total hip precautions. Driving: Do Not Drive Showering/Bathing: May Shower Wound/Incision Care: Keep Operative Site/Wound Site Clean and Dry, Do NOT Change Dressing Notify Provider of: Fever, Increased Pain, Swelling and Redness, Drainage, Nausea and/or Vomiting Other/Special Instructions: Please get up and moving around EVERY HOUR while awake. This helps to prevent blood clots. Please use your walker and have help with mobility as needed. Take a short walk in your home every hour while awake. Please take 325mg Aspirin TWICE daily. The aspirin is being used for blood clot prevention and not for pain management so please do not miss a dose of the medication. You could use a medication like Pepcid or Tagamet and a medication like Prilosec or Nexium to protect your stomach while you are using the aspirin. At home, please complete the exercises that you learned during the Hospital stay. Schedule for physical therapy. Use the pain medication as needed. The medication may cause drowsiness and constipation. Contact your primary care provider for instructions if you are constipated. You may use a stool softener like docusate sodium or Colace 100mg twice daily and/or a laxative like Miralax daily for constipation. Increase your water and fiber intake while you are using the pain medication. Discontinue use of the pain medication as soon as able. Please do not use other medications that may cause drowsiness (other pain medications, anxiety pills, cold medications, sleeping pills, etc) while using the prescription pain medication. Do not use alcohol while using the pain medication. You may use acetaminophen or Tylenol for pain management, however, please ensure you are not using over 4000 mg or 4 grams of acetaminophen per day from all sources. Your pain medication has 325mg of acetaminophen per tablet. At this time, please do not use ibuprofen (Motrin, Advil) or naproxen (Aleve) for pain management as you are using the aspirin. When the aspirin course is completed in 4 to 6 weeks, you could use ibuprofen or naproxen for pain management (if this is allowed by your primary care provider). Wear the YENIFER hose during the day and you may remove these at night. Elevate the limb to decrease swelling. Place ice to the area often. Place a towel between your skin and the blue pad. Use the incentive spirometer often. Take deep breaths throughout the day. Please keep the dressing in place until follow-up. Notify the Clinic if the dressing becomes saturated. Increase your protein intake while you are healing. If you have diabetes, please closely monitor your blood sugars and notify your primary care provider with abnormal values. Elevated blood sugars increases the risk of infection. Call the Clinic with questions or concerns - [phone]. Follow-up with primary care provider within 3-5 days of discharge regarding hypercapnia and need for sleep study. Continue BiPAP at night and when sleeping as directed. You need to obtain a sleep study. This can be arranged by your primary care provider. - Discharge Plan *PRESCRIPTION DRUG MONITORING PROGRAM REVIEWED*: No *COPY OF PRESCRIPTION DRUG MONITORING REPORT IN PATIENT HAY: No Prescriptions/Med Rec: Acetaminophen/HYDROcodone [[place] 325-5 MG] 1 - 2 tab PO Q6H PRN #30 tablet PRN Reason: Pain Aspirin [Ecotrin EC] 325 mg PO BID #70 tab.ec Home Medications: Home Meds Folic Acid 1 mg PO DAILY 11/14/13 [History] Omeprazole 20 mg PO DAILY 11/14/13 [History] Propranolol [Inderal LA] 120 mg PO DAILY 11/14/13 [History] Ezetimibe [Zetia] 10 mg PO DAILY 08/16/16 [History] Fexofenadine HCl 180 mg PO DAILY 08/16/16 [History] Losartan [Cozaar] 50 mg PO DAILY 08/16/16 [History] Acetaminophen [Tylenol Extra Strength] 500 mg PO Q4H PRN 08/03/19 [History] DULoxetine [Cymbalta] 60 mg PO DAILY 08/03/19 [History] Levocetirizine Dihydrochloride [Xyzal] 5 mg PO DAILY 08/03/19 [History] amLODIPine Besylate [Norvasc] 5 mg PO DAILY 08/03/19 [History] gemfibroziL [Lopid] 600 mg PO DAILY 08/03/19 [History] Acetaminophen/HYDROcodone [[place] 325-5 MG] 1 - 2 tab PO Q6H PRN #30 tablet 08/09 [Rx] Aspirin [Ecotrin EC] 325 mg PO BID #70 tab.ec 08/10/19 [Rx] Docusate Sodium [Colace] 100 mg PO BID cap 08/10/19 [Rx] Sennosides [Senna] 8.6 mg PO BID PRN tablet 08/10/19 [Rx] bisacodyL [Dulcolax] 5 mg PO DAILY PRN tablet 08/10/19 [Rx] Oxygen Therapy Mode: Room Air Referrals: Cathie Mcfarland MD [Primary Care Provider] - Cady Mar PA-C [Physician Lock Stitch Channeler] - (Please follow up with Cady Mar on the following dates- August 13 at 1:00, August 20 at 1:30, and September 18 at 1:00.) - Discharge Summary/Plan Comment DC Time >30 min.: No - Patient Data Vitals - Most Recent: Last Vital Signs Temp 97.3 F 08/13/19 07:57 Pulse 70 08/13/19 07:57 Resp 16 08/13/19 07:57 BP 158/89 H 08/13/19 08:37 Pulse Ox 96 08/13/19 07:57 Orthostatic Blood Pressure [ 110/78 Sitting] Orthostatic Blood Pressure [ 122/88 Standing] Orthostatic Blood Pressure [ 103/68 Supine] Weight - Most Recent: 206 lb 3.2 oz Med Orders - Current: Current Medications Discontinued Medications Acetaminophen (Tylenol) 975 mg PO ONETIME [facility] Stop: 08/06/19 16:00 Acetaminophen (Tylenol) 975 mg PO ONETIME [facility] Stop: 08/06/19 14:00 Last Admin: 08/06/19 10:31 Dose: 975 mg Hydrocodone Bitart/Acetaminophen ([place] 325-5 Mg) 1 - 2 tab PO Q6H PRN PRN Reason: Pain Last Admin: 08/12/19 20:43 Dose: 1 tab Amlodipine Besylate (Norvasc) 5 mg PO DAILY [facility] Last Admin: 08/13/19 08:37 Dose: 5 mg Aspirin (Ecotrin) 325 mg PO BID [facility] Last Admin: 08/13/19 08:37 Dose: 325 mg Bisacodyl (Dulcolax) 5 mg PO DAILY PRN PRN Reason: Constipation Last Admin: 08/08/19 21:05 Dose: 5 mg Bupivacaine HCl (Sensorcaine-Mpf 0.25%) Confirm Administered Dose 30 ml .ROUTE .STK-MED ONE Stop: 08/06/19 10:23 Last Admin: 08/06/19 12:27 Dose: 30 ml Cefazolin Sodium (Ancef) Confirm Administered Dose 2 gm .ROUTE .STK-[facility] ONE Stop: 08/06/19 09:52 Last Admin: 08/06/19 12:23 Dose: 2 gm Cefazolin Sodium (Ancef) Confirm Administered Dose 2 gm .ROUTE .[facility] ONE Stop: 08/06/19 10:22 Clonidine HCl (Duraclon) Confirm Administered Dose 1,000 mcg .ROUTE .[facility] Stop: 08/06/19 11:32 Morphine Sulfate 8 mg/Epinephrine HCl 0.3 mg/Cefuroxime Sodium 750 mg/Ketorolac Tromethamine 30 mg/Sodium Chloride 7.9 ml 0 mg .XX ONETIME ONE Stop: 08/06/19 10:01 Last Admin: 08/06/19 12:27 Dose: 788.3 mg Docusate Sodium (Colace) 100 mg PO BID [facility] Last Admin: 08/13/19 08:37 Dose: 100 mg Duloxetine HCl (Cymbalta) 60 mg PO DAILY [facility] Last Admin: 08/13/19 08:37 Dose: 60 mg Ezetimibe (Zetia) 10 mg PO DAILY [facility] Last Admin: 08/13/19 08:37 Dose: 10 mg Famotidine (Pepcid) 20 mg PO Q12H [facility] Fentanyl (Sublimaze) Confirm Administered Dose 100 mcg .ROUTE .[facility] ONE Stop: 08/06/19 09:49 Folic Acid (Folic Acid) 1 mg PO DAILY [facility] Last Admin: 08/13/19 08:37 Dose: 1 mg Gemfibrozil (Lopid) 600 mg PO DAILY [facility] Last Admin: 08/13/19 08:37 Dose: 600 mg Glycopyrrolate () Confirm Administered Dose 1 mg .ROUTE .[facility] ONE Stop: 08/06/19 12:06 Lactated Ringer's (Ringers, Lactated) 1,000 mls @ 125 mls/hr IV ASDIRECTED [facility] Stop: 08/06/19 23:00 Last Admin: 08/06/19 10:40 Dose: 125 mls/hr Cefazolin Sodium/Dextrose 2 gm (/ Premix) 50 mls @ 100 mls/hr IV Q8H [facility] Stop: 08/07/19 10:59 Last Admin: 08/07/19 09:44 Dose: 100 mls/hr Lidocaine HCl (Xylocaine-Mpf 1%) Confirm Administered Dose 4 mls @ as directed .ROUTE .STK-MED ONE Stop: 08/06/19 09:50 Vancomycin HCl 1 gm/Vancomycin HCl 500 mg/ Sodium Chloride 500 mls @ 250 mls/ hr IV ONETIME ONE Stop: 08/06/19 12:59 Last Admin: 08/06/19 11:05 Dose: 250 mls/hr Lactated Ringer's (Ringers, Lactated) Confirm Administered Dose 1,000 mls @ as directed .ROUTE .STK-MED ONE Stop: 08/06/19 12:54 Lactated Ringer's (Ringers, Lactated) 1,000 mls @ 999 mls/hr IV .BOLUS ONE Stop: 08/07/19 06:54 Last Admin: 08/07/19 06:02 Dose: 999 mls/hr Lactated Ringer's (Ringers, Lactated) 1,000 mls @ 200 mls/hr IV ASDIRECTED [facility] Stop: 08/07/19 10:59 Last Admin: 08/07/19 07:37 Dose: 200 mls/hr Iodine (Iodine 2% Mild Tincture) Confirm Administered Dose 30 ml .ROUTE .STK- MED ONE Stop: 08/06/19 10:23 Last Admin: 08/06/19 12:21 Dose: 18 ml Lidocaine HCl (Xylocaine-Mpf 1%) Confirm Administered Dose 5 ml .ROUTE .STK-MED ONE Stop: 08/06/19 11:32 Lidocaine/Sodium Bicarbonate (Buffered Lidocaine 1% In Ns 8.4%) 0.25 ml IDERM ONETIME PRN PRN Reason: Prior to IV Start Stop: 08/06/19 18:00 Last Admin: 08/06/19 10:39 Dose: 0.25 ml Losartan Potassium (Cozaar) 50 mg PO DAILY [facility] Last Admin: 08/13/19 08:36 Dose: 50 mg Midazolam HCl (Versed 1 Mg/Ml) Confirm Administered Dose 2 mg .ROUTE .STK-MED ONE Stop: 08/06/19 09:51 Miscellaneous Medication (Phenylephrine 1 Mg/10 Ml-Ns) Confirm Administered Dose 1 mg IV .STK-MED ONE Stop: 08/06/19 12:28 Miscellaneous Medication (Phenylephrine 1 Mg/10 Ml-Ns) Confirm Administered Dose 1 mg IV .STK-MED ONE Stop: 08/06/19 12:54 Morphine Sulfate (Morphine) 2 mg IVPUSH Q2H PRN PRN Reason: Breakthrough Pain Naloxone HCl (Narcan) 0.1 mg IVPUSH Q5M PRN PRN Reason: Oversedation Naloxone HCl (Narcan) 0.4 mg IVPUSH Q3M [facility] Stop: 08/07/19 20:22 Last Admin: 08/07/19 21:01 Dose: 0.4 mg Ondansetron HCl (Zofran) 4 mg IVPUSH Q6H PRN PRN Reason: Nausea/Vomiting Last Admin: 08/07/19 11:10 Dose: 4 mg Oxycodone HCl (Oxycontin) 10 mg PO ONETIME [facility] Stop: 08/06/19 16:00 Oxycodone HCl (Oxycontin) 10 mg PO ONETIME [facility] Stop: 08/06/19 14:00 Last Admin: 08/06/19 10:31 Dose: 10 mg Oxycodone/Acetaminophen (Percocet 325-5 Mg) 1 - 2 tab PO Q4H PRN PRN Reason: Pain Last Admin: 08/06/19 22:28 Dose: 2 tab Pantoprazole Sodium (Protonix) 40 mg PO DAILY [facility] Last Admin: 08/11/19 09:24 Dose: 40 mg Fexofenadine Hcl 180 (Mg) 0 each PO DAILY [facility] Last Admin: 08/07/19 09:42 Dose: Not Given Levocetirizine Dihydrochloride [ Xyzal] 5 Mg 0 each PO DAILY [facility] Last Admin: 08/07/19 09:42 Dose: Not Given Fexofenadine Hcl 180 (Mg) 0 each PO DAILY [facility] Last Admin: 08/13/19 08:38 Dose: 1 each Levocetirizine Dihydrochloride [ Xyzal] 5 Mg 0 each PO DAILY [facility] Last Admin: 08/13/19 08:38 Dose: 1 each Pregabalin (Lyrica) 50 mg PO ONETIME [facility] Stop: 08/06/19 16:00 Pregabalin (Lyrica) 50 mg PO ONETIME [facility] Stop: 08/06/19 14:00 Last Admin: 08/06/19 10:31 Dose: 50 mg Propofol (Diprivan 20 Ml) Confirm Administered Dose 200 mg .ROUTE .STK-MED ONE Stop: 08/06/19 09:50 Propranolol HCl (Inderal La) 120 mg PO DAILY [facility] Last Admin: 08/13/19 08:37 Dose: 120 mg Senna (Senna) 8.6 mg PO BID PRN PRN Reason: Constipation Sodium Chloride (Saline Flush) 10 ml FLUSH ASDIRECTED PRN PRN Reason: Keep Vein Open Stop: 08/06/19 18:00 Sodium Phosphate (Neutra-Phos) 250 mg PO BID [facility] Stop: 08/10/19 21:01 Last Admin: 08/10/19 21:00 Dose: 250 mg Tranexamic Acid (Cyklokapron) Confirm Administered Dose 1,000 mg .ROUTE .STK- MED ONE Stop: 08/06/19 10:22 Last Admin: 08/06/19 12:28 Dose: 1,000 mg Vancomycin HCl (Vancomycin) Confirm Administered Dose 1 gm .ROUTE .STK-MED ONE Stop: 08/06/19 10:23 Last Admin: 08/06/19 12:28 Dose: 1 gm
== END 2019-08-13 13:47 | disposition home or self-care (01) | DRG 469 ==
LOC: JD.MS 08-06 10:09
PROVIDERS: ADMIT Orthopaedic Surgery; ATTEND Orthopaedic Surgery
PROC: 0SRB0JZ Replacement of Left Hip Joint with Synthetic Substitute, Open Approach (ICD-10-PCS; principal; 2019-08-06)
DX: M16.12 Unilateral primary osteoarthritis, left hip (principal); J96.02 Acute respiratory failure with hypercapnia; N17.9 Acute kidney failure, unspecified; M79.7 Fibromyalgia; F41.1 Generalized anxiety disorder; F32.9 Major depressive disorder, single episode, unspecified; M10.9 Gout, unspecified; M81.0 Age-related osteoporosis without current pathological fracture; E55.9 Vitamin D deficiency, unspecified; M06.9 Rheumatoid arthritis, unspecified; R53.1 Weakness; Z96.649 Presence of unspecified artificial hip joint; K21.9 Gastro-esophageal reflux disease without esophagitis; R33.8 Other retention of urine; N99.89 Other postprocedural complications and disorders of genitourinary system; E78.5 Hyperlipidemia, unspecified; I12.9 Hypertensive chronic kidney disease with stage 1 through stage 4 chronic kidney disease, or unspecified chronic kidney disease; N18.3 Chronic kidney disease, stage 3 (moderate); R41.82 Altered mental status, unspecified; G47.33 Obstructive sleep apnea (adult) (pediatric); Z99.89 Dependence on other enabling machines and devices; Z79.82 Long term (current) use of aspirin; Z87.891 Personal history of nicotine dependence; Z79.899 Other long term (current) drug therapy; Z88.8 Allergy status to other drugs, medicaments and biological substances; Z85.828 Personal history of other malignant neoplasm of skin; Z88.2 Allergy status to sulfonamides; Z90.710 Acquired absence of both cervix and uterus; Z98.49 Cataract extraction status, unspecified eye
CPT/HCPCS: 01214; 36415; 36600; 51701; 51798; 73501-26-LT; 73501-LT; 80053; 82803; 83036; 83735; 84100; 85025; 85027; 86850; 86900; 86901; 87641; 92523-GN; 94660; 94761; 94762; 97110-GP; 97116-GP; 97162-GP; 97165-GO; 97530-GO; 97530-GP; 97535-GO; 99222; 99231; 99232; A9270-GY; C1776; J0171; J0690; J0697; J0735; J1885; J2001; J2250; J2270; J2310; J2370; J2405; J2704; J3010; J3370; J3490; J7040; J7120